=== PATIENT | female | born 1990 | race Caucasian/White ===

== ENCOUNTER → 2020-04-15 12:05 | Outpatient (BNVA) | payer SELFPAY | PROVIDERS: Family Provider Nurse Practitioner; PCP Nurse Practitioner; Visit Provider Nurse Practitioner Family | DX: N39.0 Urinary tract infection, site not specified (principal) | CPT/HCPCS: 81000 ==

== ENCOUNTER → 2020-05-03 11:12 | Outpatient (BNVA) | payer SELFPAY | PROVIDERS: Family Provider Nurse Practitioner; Visit Provider Nurse Practitioner Family | DX: N39.0 Urinary tract infection, site not specified (principal) | CPT/HCPCS: 81000; 87077; 87086; 87186 ==

== ENCOUNTER → 2020-06-04 10:22 | Outpatient (BNVA) | payer MEDICAID, SELFPAY | PROVIDERS: Family Provider Nurse Practitioner; Visit Provider Nurse Practitioner Family | DX: Z30.9 Encounter for contraceptive management, unspecified (principal); F32.9 Major depressive disorder, single episode, unspecified; F41.9 Anxiety disorder, unspecified | CPT/HCPCS: 81025 ==

== ENCOUNTER → 2020-07-09 09:15 | Outpatient (BNVA) | payer OTHER, SELFPAY | PROVIDERS: Family Provider Nurse Practitioner; PCP Nurse Practitioner Family; Visit Provider Nurse Practitioner Family | DX: Z20.828 Contact with and (suspected) exposure to other viral communicable diseases (principal); Z30.09 Encounter for other general counseling and advice on contraception | CPT/HCPCS: 87635 ==

== ENCOUNTER → 2020-09-20 09:13 | Outpatient (BNVA) | payer MEDICAID, SELFPAY | PROVIDERS: Family Provider Nurse Practitioner; PCP Nurse Practitioner Family; Visit Provider Obstetrics & Gynecology | DX: Z30.9 Encounter for contraceptive management, unspecified (principal); Z30.09 Encounter for other general counseling and advice on contraception; Z30.017 Encounter for initial prescription of implantable subdermal contraceptive | CPT/HCPCS: 81025 ==

== ENCOUNTER 2020-10-16 23:55 | Emergency (ER) | payer OTHER, SELFPAY ==
[2020-10-16 23:58] VITALS: BP 152/107; PULSE 85; RESP 16; O2SAT 100; BMI 26.2
--- NOTE | 2020-10-17 | ECG_ITS ---
[facility] Test Date: 2020-10-17 Pat Name: Violetta Kunz Department: Room: Gender: Female Bronc Buster: : 1990 Requested By: Thomas Tejeda Order Number: [id number] Armas MD: Lliian Powell M.D. Measurements Intervals [place] Rate: 72 P: 28 IA: 132 QRS: 63 QRSD: 86 T: 40 QT: 376 QTc: 413 Interpretive Statements SINUS RHYTHM No previous ECG available for comparison Electronically Signed On 10-17-2020 20:19:58 CDT by Lilian Powell M.D. [id number]
--- NOTE | 2020-10-17 00:06 | CTR_ITS ---
PROCEDURE INFORMATION: Exam: CT Head Without Contrast Exam date and time: 10/17/2020 12:09 AM Age: 30 years old Clinical indication: Dizziness; Patient HX: C/O sudden onset lightheaded w R sided numbness/weakness TECHNIQUE: Imaging protocol: Computed tomography of the head without contrast. Radiation optimization: All CT scans at this facility use at least one of these dose optimization techniques: automated exposure control; mA and/or kV adjustment per patient size (includes targeted exams where dose is matched to clinical indication); or iterative reconstruction. COMPARISON: CT head wo con* [id number] 09/05/2018 12:45 PM RADIATION DOSE METRICS: Total DLP (mGy-cm): 758.99 FINDINGS: Brain: No evidence of acute infarct. No mass or mass effect. No intra axial hemorrhage. No extra axial fluid collection or hemorrhage. Cerebral ventricles: Symmetric and without enlargement. Bones/joints: No acute fracture. Paranasal sinuses: Visualized sinuses are well aerated. Mastoid air cells: Visualized mastoid air cells are well aerated. Soft tissues: No concerning abnormalities. CT/CT head wo con* [id number] IMPRESSION: No acute intracranial abnormality. Radiation Dose CTDIVOL = (mGy): DLP = 758.99 (mGy-cm)
--- NOTE | 2020-10-17 00:09 | W.ED.DIZZY ---
HPI - Dizziness General: Chief Complaint: Dizziness Stated Complaint: Dizzy, Numbness Rt side Time Seen by Provider: 10/16/20 23:59 History of Present Illness: HPI Narrative: Patient presents with chest discomfort starting about 1 to 1-1/2 hours prior to arrival to the ER. Patient appears well. Patient appears in mild discomfort. Patient has a history of anxiety with depression and migraine headache. Patient reports pain with numbness radiating down her right side of the body. Patient states some chest tightness with this pain. MD elicited complaint: lightheadedness Associated symptoms: Reports chest pain Review of Systems General: Reports: 10 or more systems reviewed and unremarkable except in HPI and below Card: Reports: chest pain Neuro: Reports: dizziness PFS ED PFSH: Medical History (Updated 10/17/20 @ 01:11 by SRIKANTH Main) Anxiety and depression Family History Mother Hyperlipidemia Hypertension Denies family history of Colon cancer Ovarian cancer Diabetes Clotting disorder Heart disease Breast cancer Bleeding disorder Uterine cancer Stroke Social History Smoking and tobacco status: former smoker Second hand smoke exposure: No Smoking risk assessment/counseling performed?: No Alcohol intake: current Alcohol intake frequency: holidays/special occasions only Desire information about substance/drug rehabilitation?: No Counseling given: No Adopted: No Caregiver/support person: No Lives independently: Yes Household members: spouse Housing: House Marital status: Number of children: 3 service: No Current occupational status: employed Physical Exam Const: COMMON NORMALS: no acute distress, patient oriented x3 and alert GENERAL APPEARANCE: cooperative ORIENTATION/CONSCIOUSNESS: Yes oriented to person and Yes oriented to place HENMT: COMMON NORMALS: normocephalic, TM's normal bilaterally and Normal external nose present HEAD & SCALP: normal to inspection and normocephalic NOSE: Normal external nose present TYMPANIC MEMBRANE: TM's normal bilaterally MOUTH: Normal oral and palatal mucosa present THROAT: posterior oropharynx normal Eye: GENERAL EYE: appearance normal, both eyes and all related structures Neck/C-Spine: COMMON NORMALS: full ROM and no meningeal signs Lymph: LYMPHATIC: no lymphadenopathy noted Chest: COMMONS NORMALS: normal inspection of the chest Resp: COMMON NORMALS: normal respiratory effort EFFORT & INSPECTION: Yes able to speak in complete sentences Cardio: COMMON NORMALS: regular rate and regular rhythm RATE: regular rate RHYTHM: regular rhythm GI: COMMON NORMALS: non-tender : COMMON NORMALS: Yes no CVA tenderness BLADDER/KIDNEY EXAM: Yes no CVA tenderness Back/Pelvis: COMMON NORMALS: no CVA tenderness and thoracic and lumbar spine normal to inspection Extremity: COMMON NORMALS: normal to inspection Neuro: COMMON NORMALS: patient oriented x3 and moves all extremities SENSORIUM/ORIENTATION: Yes alert, Yes oriented to person and Yes oriented to place MENINGEAL SIGNS: Yes no meningeal signs CRANIAL NERVES: Yes CN normal except as noted SPEECH: speech normal GAIT: Yes Normal gait present MOTOR EXAM: 5/5 motor strength present throughout Psych: COMMON NORMALS: mental status grossly normal and cooperative Skin: COMMON NORMALS: no rashes or lesions noted GENERAL SKIN EXAM: no rashes or lesions noted Course Vital Signs: Vital signs: Vital Signs Pulse Rate 69 10/17/20 01:00 Respiratory Rate 16 10/16/20 23:58 Blood Pressure 121/81 10/17/20 01:00 Pulse Oximetry 100 10/16/20 23:58 MDM - Dizziness MDM Narrative: Medical decision making narrative: Patient comes in tonight for concerns of lightheadedness, chest discomfort, right shoulder pain. Patient also reports feeling of numbness. On exam patient has normal sensation. Respirations are even lungs are clear to auscultation. Equal strength. No sign of facial drooping. Normal speech. Vital signs were normal. Differential diagnosis includes not limited to adverse drug reaction, orthostatic hypotension, CVA, anxiety. Laboratory values were normal. Patient did have positive orthostatic blood pressures. CT of the head was negative. I reviewed the side effects for duloxetine which patient was recently started on. It noted that patient may have some increasing anxiety and some mild orthostatic hypotension. Reviewed exam with patient with recommendations for treatment and follow-up. Patient reported understanding and agreed to plan. Differential Diagnosis: Dizziness Differential Diagnosis: Likely adverse reaction to drug, orthostatic hypotension and cerebrovascular accident Lab Data: Labs: Lab Results 10/17/20 10/17/20 10/17/20 Range/Units 00:32 00:32 00:32 WBC 6.1 (4.0-10.0) 10^3/ uL RBC 4.51 (4.1-5.3) 10^6/u L Hgb 13.7 (11.5-15.3) g/dL Hct 40.3 (37.0-47.0) % MCV 89.4 (81-99) fL MCH 30.4 (28.0-34.0) pg MCHC 34.0 (30.0-36.0) g/dL RDW 12.0 L (12.1-15.1) % Plt Count 257 (130-400) 10^3/c mm MPV 9.1 (7.4-10.4) fL Neut % (Auto) 44.2 % Lymph % (Auto) 41.8 % [place] % (Auto) 7.7 % Eos % (Auto) 5.3 % Baso % (Auto) 0.8 % Neut # (Auto) 2.68 (1.8-7.7) 10^3/u L Lymph # (Auto) 2.5 (0.8-4.8) 10^3/u L [place] # (Auto) 0.5 (0.2-0.9) 10^3/u L Eos # (Auto) 0.3 (0.0-0.8) 10^3/u L Baso # (Auto) 0.1 (0.0-0.1) 10^3/u L Nucleated RBC % (a uto) 0 % Nucleated RBCs # 0.0 /100WBC Sodium 139 (136-145) mmol/L Potassium 3.9 (3.5-5.1) mmol/L Chloride 106 (98-107) mmol/L Carbon Dioxide 23 (22-29) mmol/L Anion Gap 13.9 (5-19) BUN 12 (6-20) mg/dL Creatinine 0.6 (0.5-0.9) mg/dL GFR Calculation 116.6 (90-130) mL/min Glucose 97 (65-115) mg/dL Calculated Osmolal ity 288 (285-295) mOsm/k g Calcium 9.1 (8.5-10.5) mg/dL Magnesium 1.9 (1.7-2.3) mg/dL Total Bilirubin 0.2 (0.15-1.2) mg/dL AST 20 (0-32) U/L ALT 18 (0-33) U/L Alkaline Phosphata se 58 (35-105) IU/L Troponin T Gen 5 n g/L 6 (0-10) ng/L Total Protein 7.0 (6.6-8.7) g/dL Albumin 4.7 (3.5-5.2) g/dL Globulin 2.3 (1.3-4.6) g/dL EKG Data^: EKG 1: Attestation: I personally reviewed and interpreted this EKG as follows: (1220, EKG shows normal sinus rhythm, 72 bpm regular, without any ectopy. No ST elevation is noted. No prior exam is available for evaluation comparison.) Discharge Plan Discharge Patient Disposition: Home Clinical Impression: Atypical chest pain, Anxiety about health, Orthostatic hypotension Adverse drug effect Qualifiers: Encounter type: initial encounter Qualified Code(s): T50.905A - Adverse effect of unspecified drugs, medicaments and biological substances, initial encounter Condition: Stable Prescriptions: No Action povidone-iodine [Betadine Swabsticks] 10 % swab 1 applic topical ONCE Qty: 150 RF: 0 ondansetron 4 mg tablet,disintegrating 4 mg PO Q8H PRN (Reason: nausea and vomiting) Qty: 20 RF: 0 duloxetine [Cymbalta] 60 mg capsule,delayed release(DR/EC) 60 mg PO DAILY 30 Days Qty: 30 RF: 0 buspirone 30 mg tablet 30 mg PO BID PRN (Reason: anxiety) 30 Days Qty: 60 RF: 5 doxepin 25 mg capsule 25 mg PO .hs 30 Days Qty: 30 RF: 5 Discharge Orders: Discharge ED (Routine); Ordered 10/17/20 Ordered By: Thomas Leslie Referrals: Reta Mercer FNP-C [Primary Care Provider] - Discharge Diet: Usual diet Discharge Activity: Increase activity as tolerated Patient Instructions: Chest Pain (ED), Opioid Safety Activity Restrictions/Additional Instructions: Home and rest. Drink plenty of fluids. Continue with routine medications as directed. Use acetaminophen or ibuprofen for back pain. Follow-up with primary care for further instructions. Return to the emergency department for new concerns. Coding Level of Care Code ED Neonatal Intensive Care Unit Nurse for Lori Fwd Exam Comprehensive
[2020-10-17 00:36] LABS: Basophils # 0.1 10^3/uL (0.0-0.1); Basophils % 0.8 %; Eosinophils # 0.3 10^3/uL (0.0-0.8); Eosinophils % 5.3 %; Hematocrit 40.3 % (37.0-47.0); Hemoglobin 13.7 g/dL (11.5-15.3); Lymphocytes # 2.5 10^3/uL (0.8-4.8); Lymphocytes % 41.8 %; Mean Corpuscular Hemoglobin 30.4 pg (28.0-34.0); Mean Corpuscular Volume 89.4 fL (81-99); Mean Platelet Volume 9.1 fL (7.4-10.4); Monocytes # 0.5 10^3/uL (0.2-0.9); Monocytes % 7.7 %; Neutrophils # 2.68 10^3/uL (1.8-7.7); Neutrophils % 44.2 %; Nucleated Red Blood Cells % 0 %; Platelet Count 257 10^3/cmm (130-400); Red Blood Count 4.51 10^6/uL (4.1-5.3); White Blood Count 6.1 10^3/uL (4.0-10.0)
[2020-10-17 00:53] LABS: Alanine Aminotransferase 18 U/L (0-33); Albumin Level 4.7 g/dL (3.5-5.2); Alkaline Phosphatase 58 IU/L (35-105); Anion Gap 13.9 (5-19); Aspartate Amino Transferase 20 U/L (0-32); Blood Urea Nitrogen 12 mg/dL (6-20); Calcium 9.1 mg/dL (8.5-10.5); Carbon Dioxide 23 mmol/L (22-29); Chloride 106 mmol/L (98-107); Globulin 2.3 g/dL (1.3-4.6); Glomerular Filtration Rate 116.6 mL/min (90-130); Glucose 97 mg/dL (65-115); Magnesium 1.9 mg/dL (1.7-2.3); Osmolality Calculated 288 mOsm/kg (285-295); Potassium 3.9 mmol/L (3.5-5.1); Sodium 139 mmol/L (136-145); Total Bilirubin 0.2 mg/dL (0.15-1.2)
[2020-10-17 00:55] LABS: Troponin T (5th) Once 6 ng/L (0-10)
[2020-10-17] MEDS: LORazepam 0.5 mg Tablet PO (00:57)
[2020-10-17 01:00] VITALS: BP 114/80; BP 116/83; BP 121/81; PULSE 69; PULSE 78; PULSE 93
[2020-10-17 01:15] VITALS: BP 122/83; PULSE 77; RESP 18; O2SAT 99
[2020-10-17] MEDS: sodium chloride 0.9% 500 ML 999 ML IV (01:16)
[2020-10-17 02:11] VITALS: BP 122/83; PULSE 70; RESP 17; O2SAT 99
== END 2020-10-17 02:11 | disposition home or self-care (01) ==
PROVIDERS: Emergency Provider Nurse Practitioner Family; PCP Nurse Practitioner Family
DX: R07.89 Other chest pain (principal); F41.9 Anxiety disorder, unspecified; I95.1 Orthostatic hypotension; T50.905A Adverse effect of unspecified drugs, medicaments and biological substances, initial encounter; Z87.891 Personal history of nicotine dependence
CPT/HCPCS: 70450; 80053; 83735; 84484; 85025; 93005; 96360; 99284; J7040

== ENCOUNTER → 2021-04-11 12:00 | Outpatient (BNVA) | payer MEDICAID, SELFPAY | PROVIDERS: PCP Nurse Practitioner Family; Visit Provider Nurse Practitioner Family | DX: Z20.822 Contact with and (suspected) exposure to COVID-19 (principal) | CPT/HCPCS: 87426; 87635 ==

== ENCOUNTER → 2021-04-22 10:32 | Outpatient (BNVA) | payer MEDICAID, SELFPAY | PROVIDERS: PCP Nurse Practitioner Family; Visit Provider Nurse Practitioner | DX: R05 Cough (principal); R09.81 Nasal congestion; J01.90 Acute sinusitis, unspecified; B96.89 Other specified bacterial agents as the cause of diseases classified elsewhere | CPT/HCPCS: 87400; 87880 ==

== ENCOUNTER 2022-02-11 15:01 | Outpatient (CLI) | payer BC, SELFPAY ==
[2022-02-11] VITALS (29 sets, daily range): BP systolic 105–128; BP diastolic 55–82; PULSE 92–121; RESP 16; O2SAT 85–100; BMI 26.7
[2022-02-11] MEDS: sodium chloride 0.9% 1,000 ML 999 ML IV (15:49)
[2022-02-11 16:05] LABS: Urine Appearance Clear (CLEAR); Urine Color Yellow (Yellow); pH Urine 6.5 (5-7)
[2022-02-11 16:06] LABS: Bilirubin Urine Neg (Negative); Blood Urine Neg (Negative); Glucose Urine UA Norm (Normal); Ketones Urine 1+ (Negative); Leukocyte Esterase Urine Negative (Negative); Nitrate Urine Negative (Negative); Protein Urine Neg (Negative); Urobilinogen Urine Norm (Negative)
[2022-02-11 16:07] LABS: Add Urine Culture? No; Bacteria Urine 2+ /hpf; Mucus Urine 2+ /hpf; Squamous Epithelial Cell Urine 15-25 /hpf (0-5); WBC Urine 0-4 /hpf (0-5)
[2022-02-11] MEDS: betamethasone susp 6 mg/mL 5 mL 12 MG IM (16:28)
[2022-02-11] MEDS: terbutaline 1 mg/mL INJ 0.25 MG SUBCUT (16:28)
[2022-02-11] MEDS: cefTRIAXone 1,000 MG in sodium chloride 0.9% (plus) 50 ML 100 MG IV (16:32)
[2022-02-11] MEDS: NIFEdipine 10 mg Capsule 20 MG PO (17:37)
[2022-02-11] MEDS: HYDROcodone-acetaminophen 5-325 mg Tablet 1 TAB PO (17:37)
== END 2022-02-11 20:25 | disposition home or self-care (01) ==
LOC: OPOB 15:05 → OBGYN 15:06
PROVIDERS: PCP Nurse Practitioner Family; Visit Provider Family Medicine
DX: O26.899 Other specified pregnancy related conditions, unspecified trimester (principal); Z3A.00 Weeks of gestation of pregnancy not specified; R10.9 Unspecified abdominal pain
CPT/HCPCS: 36415; 59025; 81001; 96372; 99211; J0696; J0702; J3105; J7030

== ENCOUNTER 2022-02-12 16:04 | Outpatient (CLI) | payer BC, SELFPAY ==
[2022-02-12] VITALS (7 sets, daily range): BP systolic 104–130; BP diastolic 65–81; PULSE 93–116; RESP 17; BMI 26.7
[2022-02-12] MEDS: betamethasone susp 6 mg/mL 5 mL 12 MG IM (16:31)
[2022-02-12] MEDS: NIFEdipine 10 mg Capsule 20 MG PO (16:50)
== END 2022-02-12 18:02 | disposition home or self-care (01) ==
LOC: OPOB 16:05 → OBGYN 16:05
PROVIDERS: PCP Nurse Practitioner Family; Visit Provider Family Medicine
DX: O26.899 Other specified pregnancy related conditions, unspecified trimester (principal); Z3A.00 Weeks of gestation of pregnancy not specified; R10.9 Unspecified abdominal pain
CPT/HCPCS: 59025; 96372; 99211; J0702

== ENCOUNTER 2022-02-21 01:15 | Outpatient (CLI) | payer BC, SELFPAY ==
[2022-02-21 01:15] VITALS: RESP 17; BMI 27.1
[2022-02-21 01:23] VITALS: BP 123/75; PULSE 125
[2022-02-21 01:42] VITALS: BP 118/78; PULSE 102
== END 2022-02-21 01:58 | disposition home or self-care (01) ==
LOC: OPOB 01:18 → OBGYN 01:19
PROVIDERS: PCP Nurse Practitioner Family; Visit Provider Family Medicine
DX: O36.8190 Decreased fetal movements, unspecified trimester, not applicable or unspecified (principal); O46.90 Antepartum hemorrhage, unspecified, unspecified trimester; Z3A.00 Weeks of gestation of pregnancy not specified
CPT/HCPCS: 59025; 99211

== ENCOUNTER 2022-04-02 10:11 | Outpatient (CLI) | payer BC, MEDICAID, SELFPAY ==
[2022-04-02] VITALS (11 sets, daily range): BP systolic 96–160; BP diastolic 63–125; PULSE 78–93; RESP 16; TEMP 36.6; BMI 28.7
[2022-04-02 11:33] LABS: Add Urine Microscopic? YES; Bilirubin Urine 1+ (Negative); Blood Urine Trace (Negative); Glucose Urine UA Norm (Normal); Ketones Urine Negative (Negative); Leukocyte Esterase Urine 2+ (Negative); Nitrate Urine Negative (Negative); Protein Urine Trace (Negative); RBC Urine RARE /hpf (0-2); Squamous Epithelial Cell Urine 15-25 /hpf (0-5); Urine Appearance Hazy (CLEAR); Urine Color Yellow (Yellow); Urobilinogen Urine 4 mg/dL (Negative); WBC Urine 15-25 /hpf (0-5); pH Urine 7 (5-7)
[2022-04-02 11:34] LABS: Add Urine Culture? No; Bacteria Urine 2+ /hpf
[2022-04-02 11:41] LABS: Urine Creatinine 176 mg/dL (28-217)
[2022-04-02 11:46] LABS: UPRO/UCREAT Ratio 0.24 mg/mg CR; Urine Protein Random 42 mg/dL
[2022-04-02] MEDS: HYDROcodone-acetaminophen 5-325 mg Tablet 1 TAB PO (12:23)
[2022-04-02 13:43] LABS: Amphetamines Screen Urine Negative (Negative); Barbiturates Screen Urine Negative (Negative); Benzodiazepines Screen Urine Negative (Negative); Cocaine Screen Urine Negative (Negative); Opiate Screen Urine Negative (Negative); PCP Screen Urine Negative (Negative); THC Screen Urine Negative (Negative)
== END 2022-04-02 13:35 | disposition home or self-care (01) ==
LOC: OPOB 10:18 → OBGYN 10:19
PROVIDERS: PCP Nurse Practitioner Family; Visit Provider Family Medicine
DX: O26.893 Other specified pregnancy related conditions, third trimester (principal); R51.9 Headache, unspecified; M54.9 Dorsalgia, unspecified; Z3A.37 37 weeks gestation of pregnancy
CPT/HCPCS: 59025; 80306; 81001; 82570; 84156; 99211

== ENCOUNTER 2022-04-05 05:51 | Inpatient (IN) | payer BC, MEDICAID, SELFPAY ==
[2022-04-05] VITALS (34 sets, daily range): BP systolic 104–140; BP diastolic 56–103; PULSE 71–159; RESP 16–17; TEMP 36.3–36.9; O2SAT 86–99; BMI 28.5
[2022-04-05 06:02] LABS: Basophils % 0.2 %; Eosinophils # 0.2 10^3/uL (0.0-0.8); Eosinophils % 2.1 %; Hematocrit 32.2 % (37.0-47.0); Hemoglobin 10.2 g/dL (11.5-15.3); Lymphocytes # 2.1 10^3/uL (0.8-4.8); Mean Corpuscular HGB Conc 31.7 g/dL (30.0-36.0); Mean Corpuscular Hemoglobin 26.1 pg (28.0-34.0); Mean Corpuscular Volume 82.4 fl (81-99); Mean Platelet Volume 9.3 fL (7.4-10.4); Monocytes # 0.8 10^3/uL (0.2-0.9); Monocytes % 8.6 %; Neutrophils # 5.82 10^3/uL (1.8-7.7); Neutrophils % 65.1 %; Nucleated Red Blood Cells % 0 %; Platelet Count 286 10^3/cmm (130-400); Red Blood Count 3.91 10^6/uL (4.1-5.3); Red Cell Distribution Width 13.6 % (12.1-15.1)
[2022-04-05 06:03] LABS: Nitrazine Paper, PH Positive
[2022-04-05] MEDS: lactated ringers 1,000 ML 999 ML IV (06:05)
[2022-04-05] MEDS: ondansetron 2 mg/ML SDV 2 mL 4 MG IVP (06:19)
[2022-04-05] MEDS: dextrose 5%-lactated ringers 1,000 ML 125 ML IV (07:09)
--- NOTE | 2022-04-05 07:52 | ANES.PREANE2 ---
Pre-Anesthetic Assessment Height/Weight: Height 1.6 m Pulse BP Pulse Ox O2 Del Method 85 104/58 98 04/05/22 07:33 04/05/22 07:33 04/05/22 07:00 04/05/22 07:37 epidural Familial anesthetic complications: none Social No alcohol and No tobacco Airway Mallampati: Class II Dentition: full Anesthetic Plan ASA status: 2 Anesthesia: Regional (specify below) Risk of > 500 ml blood loss (7ml/kg in children): No Medications/Allergies Home Medications Medication Instructions Recorded Confirmed Last Taken Type docusate sodium 100 mg capsule 100 mg PO DAILY 04/02/22 04/02/22 Unknown History (Colace) inulin 2 gram chewable tablet 2 g PO DAILY 04/02/22 04/02/22 Unknown History (Fiber Gummies) Allergies Allergy/AdvReac Type Severity Reaction Status Date / Time No Known Allergies Allergy Verified 02/21/22 01:38 Current Medications Generic Name Dose Route Start Last Admin Trade Name Freq PRN Reason Stop Dose Admin Dextrose/Lactated Ringer's 1,000 mls @ 125 mls/hr 04/05/22 05:45 04/05/22 07:09 Dextrose 5%-Lactated Ringers IV 125 mls/hr .Q8H TORY Administration Ropivacaine 200 mg in 100 mls @ 13 mls/hr 04/05/22 06:00 04/05/22 07:09 Naropin Premix EPIDURAL 13 mls/hr .Q7H42M TORY Administration Lactated Ringer's 1,000 mls @ 999 mls/hr 04/05/22 05:55 04/05/22 06:05 Lactated Ringers IV 999 mls/hr .Q1H1M PRN Administration See label comments Ondansetron HCl 4 mg 04/05/22 05:38 04/05/22 06:19 Ondansetron 2 Mg/Ml Sdv 2 Ml IVP 4 mg Q4H PRN Administration NAUSEA AND VOMITING PFSH Anesthesia Medical History Anxiety and depression Family History Mother Hyperlipidemia Hypertension Denies family history of Colon cancer Ovarian cancer Diabetes Clotting disorder Heart disease Breast cancer Bleeding disorder Uterine cancer Stroke Social History Smoking and tobacco status: former smoker Second hand smoke exposure: No Smoking risk assessment/counseling performed?: No Alcohol intake: current Alcohol intake frequency: holidays/special occasions only Data Anesthesia : 04/05/22 05:50 Short CBC 04/05/22 Range/Units 05:50 WBC 9.0 (4.0-10.0) 10^3/uL Hgb 10.2 L (11.5-15.3) g/dL Hct 32.2 L (37.0-47.0) % MCV 82.4 (81-99) fl Plt Count 286 (130-400) 10^3/cmm Neut % (Auto) 65.1 % Neut # (Auto) 5.82 (1.8-7.7) 10^3/uL Cardiac Studies: No Data to Display
--- NOTE | 2022-04-05 07:53 | ANES.PROC ---
Anesthesia Procedures Procedure/Date: 04/05/22 Epidural: Time Out Performed: Yes Consents Signed: Procedure Consent Consent: requested by attending/covering physician, from patient, risks and benefits reviewed and patient agrees to proceed Lumbar Level: L3-L4 Epidural position: sitting Epidural procedure: sterile prep of area, 1% lidocaine to numb the area, 18 g needle, negative for paresthesia passed, neg for paresthesia, test dose given, 1.5% xylocaine 1:200k epi (8 cc (divided dose)), 0.2% Ropivacaine bolus ml (5 ml), placed PCEA, no systemic response, sterile dressing applied, L.U.D. no apparent complications and 0.2% Ropiavacaine @ mls/hr (13) Additional Comments: TANNA at 3.5 cm, threaded to 10 cm. Test dose given twice because patient had contraction during administration
[2022-04-05] MEDS: oxytocin 30 UNIT/500 ML BAG 600 UNIT IV (08:00)
--- NOTE | 2022-04-05 08:19 | PM.OPHPUD ---
Labor & Delivery H&P Update Date of Procedure: April 05, 2022 Date H&P Performed: 04/04/22 Admission Diagnosis: 31-year-old 4 para 3-0-0-3 at 38 weeks estimated gestational age presenting with spontaneous rupture membranes and active labor Planned procedure: Spontaneous vaginal delivery Other information: The patient 38-week female who presented with spontaneous rupture of membranes. Membranes ruptured just prior to arrival to hospital. She also has a consistent contractions. Patient's is been unremarkable. Her labs were as follows. Her blood type is a positive her antibody screen is negative. Her infectious disease profile was within normal limits. Her glucose screen was passed. She was GBS negative. Her drug screen was positive for marijuana.
--- NOTE | 2022-04-05 08:24 | PM.DELIVERY ---
Delivery Note: Date of delivery: April 05, 2022 Pre-delivery diagnoses: 31-year-old 4 para 3 presenting with spontaneous rupture membranes and active labor. three 31-year-old female at 38 weeks estimated gestational age Procedure: Spontaneous vaginal delivery Delivering Physician: Kelby Lopez Estimated blood loss (mL): 100 Pre-Delivery Course: The patient presented to the hospital in active labor. She was noted to have spontaneous rupture membranes. An epidural was placed. She progressed to complete without difficulty. The baby had category 1 tracings during labor. Delivery: DELIVERY: The patient progressed to complete without difficulty. She delivered a female with a weight of 7 pounds 14 ounces with Apgars of 8, 9. The baby was delivered from the GÓMEZ position and placed on the mother's abdomen. The cord was then clamped and cut. There was no nuchal cord. There was no meconium. The placenta and 3 vessel cord were delivered intact shortly thereafter. The perineum and vaginal vault were carefully examined. No lacerations were noted. Both the mother and the baby were in stable condition. Post-Delivery Status: Good History History History 5 Term 3 0 Miscarriages/Ectopic 2 Living Children 3 A&P Assessment and plan (1) 38 weeks gestation of : I anticipate routine care. Status: Acute (2) Spontaneous vaginal delivery: Status: Acute Coding Level of Care Code Acute Shrinking Machine Operator for Chg Fwd Diagnoses 38 weeks gestation of Z3A.38 Spontaneous vaginal delivery O80
--- NOTE | 2022-04-05 08:30 | ANE.PACU2 ---
Inpatient post-anesthesia follow up: Airway intact: Yes Vital signs: Temperature Pulse Rate 99 Respiratory Rate Blood Pressure 118/63 Pulse Oximetry 98 Oxygen Delivery Me thod Room Air Oxygen Flow Rate Fraction of Inspir ed Oxygen Hydration adequate: Yes Nausea and vomiting: No Pain level: 2 Mental status: Baseline
--- NOTE | 2022-04-05 08:30 | PM.MISC ---
Miscellaneous Note Purpose of Documentation: Epidural Bolus: epidural bolused 5mls of 2% lido and 100mcg of fentanyl
[2022-04-05] MEDS: ibuprofen 800 mg tablet PO ×3 (09:40→20:16)
[2022-04-05] MEDS: prenatal vitamin Capsule 1 CAP PO (09:40)
[2022-04-05] MEDS: docusate sodium 100 mg Capsule PO ×2 (09:40→18:13)
--- NOTE | 2022-04-05 11:05 | PC.NURSE ---
discussed pt needing to get up to empty bladder. legs are getting feeling back but still somewhat numb. will reassess in 30-60 minutes as pt does not feel urge to void at this time.
--- NOTE | 2022-04-05 13:58 | PC.NURSE ---
pt up to bathroom without difficulty. void large amount. yuki care by pt. pad and gown changed. pt remains up in room
--- NOTE | 2022-04-05 15:28 | PC.NURSE ---
pt ambulated to OB-11 without difficulty. oriented to room/call light. proud parent pack and feeding log discussed.
[2022-04-05] MEDS: HYDROcodone-acetaminophen 5-325 mg Tablet PO (18:16)
[2022-04-05 20:53] LABS: Hematocrit 32.8 % (37.0-47.0); Hemoglobin 10.3 g/dL (11.5-15.3); Mean Corpuscular HGB Conc 31.4 g/dL (30.0-36.0); Mean Corpuscular Hemoglobin 26.3 pg (28.0-34.0); Mean Corpuscular Volume 83.9 fl (81-99); Mean Platelet Volume 9.7 fL (7.4-10.4); Platelet Count 303 10^3/cmm (130-400); Red Blood Count 3.91 10^6/uL (4.1-5.3); Red Cell Distribution Width 13.8 % (12.1-15.1)
[2022-04-06] MEDS: HYDROcodone-acetaminophen 5-325 mg Tablet PO ×2 (00:11→08:39)
[2022-04-06 04:49] VITALS: BP 103/60; PULSE 79; RESP 16; O2SAT 98
--- NOTE | 2022-04-06 05:56 | PM.OBGYDC ---
Discharge Providers OPERATIONS MANAGER STATION Date of Admission: 04/05/22 05:51 Date of Discharge: 04/06/22 Attending Provider at Admission: Kelby Lopez MD Attending Provider at Discharge: Kelby Lopez MD Primary Care Provider: ALBERT Davis Diagnoses at Discharge Discharge Diagnosis (1) 38 weeks gestation of : Status: Acute (2) Spontaneous vaginal delivery: Status: Acute Reason for Visit Reason for Visit: contactions possible rupture Hospital Course Hospital Course The patient presented to the hospital with spontaneous rupture of membranes. She was also in active labor and progressed to complete quickly and without difficulty. She did receive an epidural. Her delivery was unremarkable. There are no complications. She had no tears. Her course was also unremarkable. She breast-fed well. Her pain was well controlled. Her bleeding was within normal limits. There were no concerns. Information Peripartum Data: Infant Delivery Method: Vaginal Physical Exam Narrative: The patient is alert. She appears comfortable. Her heart has a regular rate and rhythm with no murmurs appreciated. Lungs are clear to auscultation bilaterally. Her fundus is firm and below the umbilicus. History History History 5 Term 3 0 Miscarriages/Ectopic 2 Living Children 3 Discharge Data Studies Completed and Pending Laboratory Results WBC 14.0 10^3/uL (4.0-10.0) H 04/05/22 20:20 RBC 3.91 10^6/uL (4.1-5.3) L 04/05/22 20:20 Hgb 10.3 g/dL (11.5-15.3) L 04/05/22 20:20 Hct 32.8 % (37.0-47.0) L 04/05/22 20:20 MCV 83.9 fl (81-99) 04/05/22 20:20 MCH 26.3 pg (28.0-34.0) L 04/05/22 20:20 MCHC 31.4 g/dL (30.0-36.0) 04/05/22 20:20 RDW 13.8 % (12.1-15.1) 04/05/22 20:20 Plt Count 303 10^3/cmm (130-400) 04/05/22 20:20 MPV 9.7 fL (7.4-10.4) 04/05/22 20:20 Neut % (Auto) 65.1 % 04/05/22 05:50 Lymph % (Auto) 23.0 % 04/05/22 05:50 [place] % (Auto) 8.6 % 04/05/22 05:50 Eos % (Auto) 2.1 % 04/05/22 05:50 Baso % (Auto) 0.2 % 04/05/22 05:50 Neut # (Auto) 5.82 10^3/uL (1.8-7.7) 04/05/22 05:50 Lymph # (Auto) 2.1 10^3/uL (0.8-4.8) 04/05/22 05:50 [place] # (Auto) 0.8 10^3/uL (0.2-0.9) 04/05/22 05:50 Eos # (Auto) 0.2 10^3/uL (0.0-0.8) 04/05/22 05:50 Baso # (Auto) 0.0 10^3/uL (0.0-0.1) 04/05/22 05:50 Nucleated RBC % (auto) 0 % 04/05/22 05:50 Nucleated RBCs # 0.0 /100WBC 04/05/22 05:50 Vitals Last Vital Signs Temp 98.4 F 04/05/22 16:05 Pulse 79 04/06/22 04:49 Resp 16 04/06/22 04:49 BP 103/60 04/06/22 04:49 Pulse Ox 98 04/06/22 04:49 O2 Del Method 04/06/22 04:49 Discharge Plan Discharge Patient Disposition: Home Condition: Stable Prescriptions: New ibuprofen 800 mg Tablet 800 mg PO TID Qty: 45 0RF Continued docusate sodium [Colace] 100 mg Capsule 100 mg PO DAILY Fiber Gummies 2 gram Tablet,Chewable 2 g PO DAILY Discharge Orders: Discharge Order (Routine); Ordered 04/06/22 Ordered By: Kelby Lopez Referrals: Kelby Lopez MD [Physician] - 6 Weeks Discharge Diet: Usual diet Discharge Activity: Limit activity as instructed Patient Instructions: Opioid Safety Discharge Attestations OPERATIONS MANAGER STATION Time Spent in Discharge Care*: less than 30 min Coding Level of Care Code Acute National Business Director for Chg Fwd Diagnoses 38 weeks gestation of Z3A.38 Spontaneous vaginal delivery O80
[2022-04-06] MEDS: prenatal vitamin Capsule 1 CAP PO (08:39)
[2022-04-06] MEDS: docusate sodium 100 mg Capsule PO (08:39)
[2022-04-06] MEDS: ibuprofen 800 mg tablet PO (08:39)
[2022-04-06] MEDS: lanolin oint 7 gm 1 APPLIC TOPICAL (08:44)
[2022-04-06 09:18] VITALS: BP 126/71; PULSE 91; RESP 14; TEMP 36.6; O2SAT 97
[2022-04-06 10:10] VITALS: BP 126/71; PULSE 91; RESP 14; TEMP 36.6; O2SAT 97
== END 2022-04-06 10:10 | disposition home or self-care (01) | DRG 806 ==
LOC: OBGYN 05:58 → OPOB 14:37
PROVIDERS: Admitting Provider Family Medicine; PCP Nurse Practitioner Family; Visit Provider Family Medicine
DX: O42.02 Full-term premature rupture of membranes, onset of labor within 24 hours of rupture (principal); O99.324 Drug use complicating childbirth; Z37.0 Single live birth; Z3A.38 38 weeks gestation of pregnancy; F12.90 Cannabis use, unspecified, uncomplicated
CPT/HCPCS: 12345; 36415; 59409; 83986; 85025; 85027; 99211; J2405; J2795; J3010

== ENCOUNTER 2023-10-25 11:35 | Outpatient (CLI) | payer BC, MEDICAID, SELFPAY ==
--- NOTE | 2023-10-25 12:00 | MR_ITS ---
WS: [id number] MRA ANGIOGRAPHY [place] HISTORY: Z82.49 - Family history of ischemic heart disease and oth... COMPARISON: None available. TECHNIQUE: 3-D MR angiography is performed of the [place]. All images are reviewed including source images. Distal vertebral and basilar arteries are intact with no significant stenosis or plaque. Posterior ce rebral arteries are normal course and caliber. Posterior communicating arteries are both patent. Intracranial portion of the internal carotid arteries are normal course and caliber. No significant a therosclerosis, stenosis or aneurysm identified. Middle and anterior cerebral arteries are both paten t with no significant disease. Anterior communicating artery is also normal. IMPRESSION: Normal MRA [place].
== END 2023-10-25 11:36 | disposition home or self-care (01) ==
LOC: RAD 11:36
PROVIDERS: PCP Family Medicine; Visit Provider Specialist
DX: Z82.49 Family history of ischemic heart disease and other diseases of the circulatory system (principal)
CPT/HCPCS: 70544

== ENCOUNTER 2024-05-30 19:31 | Emergency (ER) | payer BC, MEDICAID, SELFPAY ==
[2024-05-30 19:33] VITALS: BP 122/76; PULSE 86; RESP 16; TEMP 36.7; O2SAT 97; BMI 23.9
--- NOTE | 2024-05-30 22:57 | ED_ITS ---
Documented by User: MICHAEL Costa 05/31/24 00:33 HPI - Headache General: Chief Complaint: Headache Stated Complaint: migraine Time Seen by Provider: 05/30/24 22:49 Source: patient Mode of arrival: ambulatory Limitations: no limitations History of Present Illness: Patient is a 34-year-old female presenting to the emergency department due to a headache beginning this morning. She has a history of migraines, last received Botox injection in March and states that this is the worst headache she has had since then. She states the Botox does work at her next appointment is not until June. States that she took 3 Excedrin Migraine this morning at 9 AM but has not taken anything since. She states this feels identical to prior migraines, or pain is primarily worse on the right side of her head. She denies any neurological symptoms, blurred vision, or other concerning symptoms. She does note that she is feeling nauseous. Her pain is worse with light. MD elicited complaint: headache and migraine Onset (ago): hour(s) Onset description: suddenly Location: right Severity: severe Exacerbating factors: light Associated symptoms: Reports nausea; Deny chest pain, fever(s), lightheadedness, rash or vomiting Treatments prior to arrival: migraine medication Related Data Home Medications Medication Instructions Recorded Confirmed sumatriptan succinate 50 mg tablet mg PO 09/19/23 04/10/24 Previous Rx's Medication Instructions Recorded galcanezumab-gnlm 120 mg/mL 120 mg SUBCUT .monthly #1 mL 10/05/23 subcutaneous pen injector (Emgality Pen) galcanezumab-gnlm 120 mg/mL 240 mg (2 mL) SUBCUT ONCE #2 mL 10/05/23 subcutaneous pen injector (Emgality Pen) topiramate 50 mg tablet (Topamax) 50 mg PO DAILY #30 tabs 10/23/23 Allergies Allergy/AdvReac Type Severity Reaction Status Date / Time No Known Allergies Allergy Verified 04/10/24 09:28 Review of Systems General: Reports: 10 or more systems reviewed and unremarkable except in HPI and below Const: Denies: fever(s), chills or fatigue Eyes: Denies: change in vision ENMT: Denies: throat pain, ear or mastoid pain or nasal discharge Card: Denies: chest pain, palpitations, swelling of feet/ankles or lightheadedness Resp: Denies: dyspnea, productive cough or wheezing GI: Reports: nausea; Denies: abdominal pain, vomiting, diarrhea or constipation : Denies: flank pain, difficulty voiding, dysuria or urinary frequency Musc: Denies: neck pain, back pain or joint pain Skin/Breast: Denies: rash Neuro: Reports: headache(s); Denies: numbness in extremities or weakness in extremities PFSH ED PFSH: Medical History (Updated 05/30/24 @ 23:55 by MICHAEL Costa) Anxiety and depression Family History Mother Hyperlipidemia Hypertension Denies family history of Colon cancer Ovarian cancer Diabetes Clotting disorder Heart disease Breast cancer Bleeding disorder Uterine cancer Stroke Social History Smoking and tobacco/nicotine status: former use of tobacco/nicotine (quit 10+ years ago) Second hand smoke exposure: No Alcohol intake: current Alcohol intake frequency: holidays/special occasions only Substance/Drug Use: never Female Reproductive History: Date of last menstrual period: 05/26/24 Physical Exam Const: COMMON NORMALS: patient oriented x3 and no limitations GENERAL APPEARANCE: cooperative and well developed ORIENTATION/CONSCIOUSNESS: Yes awake, Yes oriented to person, Yes oriented to place and Yes oriented to time OTHER: Patient in dark room, appearing uncomfortable from a migraine headache HENMT: COMMON NORMALS: normocephalic, atraumatic and hearing grossly normal bilaterally HEAD & SCALP: normocephalic and atraumatic Eye: COMMON NORMALS: Equal, round and reactive pupils present, EOMs intact bilaterally and conjunctivae normal CONJUNCTIVA: Yes conjunctivae normal PUPIL: Yes Equal, round and reactive pupils present Neck/C-Spine: COMMON NORMALS: full ROM, supple and no JVD Resp: COMMON NORMALS: normal respiratory effort, No retractions, No use of accessory muscles and clear to auscultation bilaterally AUSCULTATION: clear to auscultation bilaterally Cardio: COMMON NORMALS: no JVD, regular rate, regular rhythm, No clicks present (Cardio), No murmurs present (Cardio) and No rub (Cardio) RATE: regular rate RHYTHM: regular rhythm Extremity: COMMON NORMALS: normal to inspection, full ROM and capillary refill normal Neuro: COMMON NORMALS: patient oriented x3, CN's II-XII intact bilaterally, moves all extremities, no focal motor deficits and no sensory deficits noted SENSORIUM/ORIENTATION: Yes oriented to person, Yes oriented to place and Yes oriented to time Skin: COMMON NORMALS: no rashes or lesions noted GENERAL SKIN EXAM: no rashes or lesions noted Course Vital Signs: Vital signs: Vital Signs Temperature 98.0 F 05/30/24 19:33 Pulse Rate 68 05/31/24 01:46 Respiratory Rate 20 H 05/31/24 01:00 Blood Pressure 131/71 05/31/24 01:46 Pulse Oximetry 99 05/31/24 01:46 Oxygen Delivery Me thod Room Air 05/31/24 01:00 MDM - Headache Medical Decision Making Patient presented with migraine, stating that it felt exactly like prior migraines. She sees Dr. Gill for Botox injections but states her next one is not until June. She has never had visits here for migraine she reports, after migraine cocktail she does report improvement will be discharged home with instructions to follow back up with Dr. Gill. Reasons to return discussed. No radiology studies performed this visit Discharge Plan Discharge Patient Disposition: Home Clinical Impression: Migraine Qualifiers: Migraine type: unspecified Status migrainosus presence: without status migrainosus Intractability: intractable Qualified Code(s): G43.919 - Migraine, unspecified, intractable, without status migrainosus Condition: Stable Prescriptions: No Action sumatriptan succinate 50 mg tablet PO Emgality Pen 120 mg/mL pen injector 240 mg SUBCUT ONCE Qty: 2 0RF Rx Instructions: loading dose Emgality Pen 120 mg/mL pen injector 120 mg SUBCUT .monthly Qty: 1 3RF Rx Instructions: after loading dose topiramate [Topamax] 50 mg tablet 50 mg PO DAILY Qty: 30 3RF Discharge Orders: Discharge ED (Routine); Ordered 05/31/24 Ordered By: Deven Abernathy Referrals: Kelby Lopez MD [Primary Care Provider] - Patient Instructions: Migraine Headache (ED) Activity Restrictions/Additional Instructions: Follow-up with Dr. Gill. Continue taking home medications. Plenty of fluids. Return with any new or worsening. Coding Level of Care Code ED Milling/Polishing Operator for Chg Fwd Documented by User: Tyler Pak DO 05/31/24 15:46 HPI - Headache General: Chief Complaint: Headache Stated Complaint: migraine Time Seen by Provider: 05/30/24 22:49 Related Data Home Medications Medication Instructions Recorded Confirmed sumatriptan succinate 50 mg tablet mg PO 09/19/23 04/10/24 Previous Rx's Medication Instructions Recorded galcanezumab-gnlm 120 mg/mL 120 mg SUBCUT .monthly #1 mL 10/05/23 subcutaneous pen injector (Emgality Pen) galcanezumab-gnlm 120 mg/mL 240 mg (2 mL) SUBCUT ONCE #2 mL 10/05/23 subcutaneous pen injector (Emgality Pen) topiramate 50 mg tablet (Topamax) 50 mg PO DAILY #30 tabs 10/23/23 Allergies Allergy/AdvReac Type Severity Reaction Status Date / Time No Known Allergies Allergy Verified 04/10/24 09:28 PFS ED PFSH: Medical History (Updated 05/30/24 @ 23:55 by MICHAEL Costa) Anxiety and depression Family History Mother Hyperlipidemia Hypertension Denies family history of Colon cancer Ovarian cancer Diabetes Clotting disorder Heart disease Breast cancer Bleeding disorder Uterine cancer Stroke Social History Smoking and tobacco/nicotine status: former use of tobacco/nicotine (quit 10+ years ago) Second hand smoke exposure: No Alcohol intake: current Alcohol intake frequency: holidays/special occasions only Substance/Drug Use: never Course Vital Signs: Vital signs: Vital Signs Temperature 98.0 F 05/30/24 19:33 Pulse Rate 68 05/31/24 01:46 Respiratory Rate 20 H 05/31/24 01:00 Blood Pressure 131/71 05/31/24 01:46 Pulse Oximetry 99 05/31/24 01:46 Oxygen Delivery Me thod Room Air 05/31/24 01:00 MDM - Headache Medical Decision Making Patient presented with migraine, stating that it felt exactly like prior migraines. She sees Dr. Gill for Botox injections but states her next one is not until June. She has never had visits here for migraine she reports, after migraine cocktail she does report improvement will be discharged home with instructions to follow back up with Dr. Gill. Reasons to return discussed. This patient was originally seen by Mr. Josemanuel PA-C. I agree with his history, evaluation, and treatment. Discharge Plan Discharge Patient Disposition: Home Clinical Impression: Migraine Qualifiers: Migraine type: unspecified Status migrainosus presence: without status migrainosus Intractability: intractable Qualified Code(s): G43.919 - Migraine, unspecified, intractable, without status migrainosus Condition: Stable Prescriptions: No Action sumatriptan succinate 50 mg tablet PO Emgality Pen 120 mg/mL pen injector 240 mg SUBCUT ONCE Qty: 2 0RF Rx Instructions: loading dose Emgality Pen 120 mg/mL pen injector 120 mg SUBCUT .monthly Qty: 1 3RF Rx Instructions: after loading dose topiramate [Topamax] 50 mg tablet 50 mg PO DAILY Qty: 30 3RF Discharge Orders: Discharge ED (Routine); Ordered 05/31/24 Ordered By: Deven Abernathy Referrals: Kelby Lopez MD [Primary Care Provider] - Patient Instructions: Migraine Headache (ED) Activity Restrictions/Additional Instructions: Follow-up with Dr. Gill. Continue taking home medications. Plenty of fluids. Return with any new or worsening. Coding Level of Care Code ED Milling/Polishing Operator for Lori Pritchard
[2024-05-30] MEDS: ondansetron 2 mg/ML SDV 2 mL 4 MG IVP (23:55)
[2024-05-30] MEDS: dexamethasone 10 mg/mL INJ IVP (23:55)
[2024-05-30] MEDS: sodium chloride 0.9% 1,000 ML 999 ML IV (23:56)
[2024-05-30 23:58] VITALS: BP 128/75; PULSE 63; RESP 15; O2SAT 100
[2024-05-31] VITALS: BP 126/79; PULSE 69; RESP 15; O2SAT 99
[2024-05-31] MEDS: ketorolac 60 mg/2 mL INJ 30 MG IVP (00:04)
[2024-05-31] MEDS: diphenhydrAMINE 50 mg/mL SDV 1mL IVP (00:05)
[2024-05-31 00:30] VITALS: BP 126/79; PULSE 65; RESP 15; O2SAT 99
[2024-05-31 01:00] VITALS: BP 131/71; PULSE 73; RESP 20; O2SAT 98
[2024-05-31 01:46] VITALS: BP 131/71; PULSE 68; O2SAT 99
== END 2024-05-31 01:45 | disposition home or self-care (01) ==
PROVIDERS: Emergency Provider Physician Assistant; PCP Family Medicine
DX: G43.919 Migraine, unspecified, intractable, without status migrainosus (principal); Z87.891 Personal history of nicotine dependence
CPT/HCPCS: 96374; 96375; 99284; J1100; J1200; J1885; J2405; J7030

== ENCOUNTER 2024-10-20 13:49 | Outpatient (CLI) | payer BC, MEDICAID, SELFPAY ==
--- NOTE | 2024-10-20 13:56 | XR_ITS ---
WS: [id number] Exam: XR lumbar spine min 4V [id number] Date/Time of Exam: 10/20/2024 2:05 PM Reason For Exam: M54.50 - Low back pain, unspecified Comparison 05/03/2018. No fracture or malalignment. Disc spaces are preserved. Posterior elements appear normal. XR/XR lumbar spine min 4V [id number] IMPRESSION: 1. Negative lumbar spine study.
== END 2024-10-20 13:50 | disposition home or self-care (01) ==
PROVIDERS: PCP Family Medicine; Visit Provider Anesthesiology Pain Medicine
DX: M54.50 Low back pain, unspecified (principal)
CPT/HCPCS: 72110

== ENCOUNTER 2025-01-19 10:05 | Emergency (ER) | payer BC, MEDICAID, SELFPAY ==
[2025-01-19 10:28] VITALS: BP 115/77; PULSE 67; RESP 17; TEMP 36.6; O2SAT 98; BMI 23.0
[2025-01-19 10:53] VITALS: BP 123/92; PULSE 67; RESP 16; O2SAT 100
--- NOTE | 2025-01-19 11:05 | ED_ITS ---
HPI - Headache General: Chief Complaint: Headache Stated Complaint: Migraine x 4 days Time Seen by Provider: 01/19/25 10:43 Source: patient Mode of arrival: ambulatory Limitations: no limitations History of Present Illness: Patient is a 34-year-old female presents to ED today for evaluation of a migraine headache. Patient states she has a longstanding history of migraine headaches. She sees Dr. Gill and receives Botox injections. Patient states she will have a headache approximately 22/30 days of the month. She states she normally takes Excedrin Migraine. She does not take any prophylactic medications. She states she received Botox injections by Dr. Gill on Sunday. She is here complaining of migraine headache over the past 4 days. Currently rating headache at a 6/10. She feels like her pain today is identical to previous migraines. States she was here back in May and received migraine cocktail which was helpful. MD elicited complaint: headache and migraine Pertinent past history: migraines Onset (ago): day(s) Severity: moderate Pain scale (0-10): 6 Exacerbating factors: none Relieving factors: nothing Associated symptoms: Reports no associated symptoms; Deny confusion, fever(s), malaise, nausea or vomiting Treatments prior to arrival: other (excedrin migraine ) Related Data Home Medications ?Medication ?Instructions ?Recorded ?Confirmed [id number] 250 2 tab PO Q6H PRN He adache 01/19/25 01/19/25 mg-250 mg-65 mg tablet (Excedrin Migraine) Previous Rx's ?Medication ?Instructions ?Recorded tizanidine 4 mg tablet See Rx Instructions .Route 0 12/23/24 .COMPLEX #60 tabs Allergies Allergy/AdvReac Type Severity Reaction Status Date / Time No Known Allergies Allergy Verified 01/19/25 10:32 Review of Systems Const: Denies: fever(s), chills, body aches, fatigue or malaise Eyes: Denies: change in vision, blurry vision, floaters or seeing flashes Card: Denies: palpitations GI: Denies: nausea or vomiting Musc: Denies: neck pain Neuro: Reports: headache(s); Denies: numbness in extremities, weakness in extremities, sensory changes, lack of coordination, difficulty walking, dizziness, confusion or behavioral changes [facility] ED PFSH: Medical History (Updated 01/19/25 @ 12:28 by MICHAEL Prince) Anxiety and depression Family History Mother Hyperlipidemia Hypertension Denies family history of Colon cancer Ovarian cancer Diabetes Clotting disorder Heart disease Breast cancer Bleeding disorder Uterine cancer Stroke Social History Smoking and tobacco/nicotine status: former use of tobacco/nicotine Second hand smoke exposure: No Alcohol intake: current Alcohol intake frequency: holidays/special occasions only Substance/Drug Use: never Physical Exam Const: COMMON NORMALS: no acute distress, average body habitus, patient oriented x3, no limitations, healthy appearing, alert and well nourished GENERAL APPEARANCE: cooperative ORIENTATION/CONSCIOUSNESS: Yes awake, Yes oriented to person, Yes oriented to place and Yes oriented to time HENMT: COMMON NORMALS: normocephalic and atraumatic HEAD & SCALP: normal to inspection, normocephalic and atraumatic FACE & SINUS: normal facial exam and face symmetric Neuro: JANETH COMA SCALE: document GCS findings [place] coma scale eye opening: Spontaneous [place] coma scale verbal response: Orientated Janeth coma scale motor response: Obey commands Janeth coma scale total score: 15 COMMON NORMALS: patient oriented x3, moves all extremities, no focal motor deficits, no sensory deficits noted and gait normal SENSORIUM/ORIENTATION: Yes alert, Yes oriented to person, Yes oriented to place and Yes oriented to time Course Vital Signs: Vital signs: Vital Signs Temperature 98 F 01/19/25 10:28 Pulse Rate 67 01/19/25 10:53 Respiratory Rate 16 01/19/25 10:53 Blood Pressure 123/92 01/19/25 10:53 Pulse Oximetry 100 01/19/25 10:53 Oxygen Delivery Me thod Room Air 01/19/25 10:28 MDM - Headache Medical Decision Making Patient feeling better after medications given here and would like to go home. Recommend she follow-up with her neurologist. Medical Records I reviewed the patient's medical records. No radiology studies performed this visit Discharge Plan Discharge Patient Disposition: Home Clinical Impression: Migraine Qualifiers: Migraine type: unspecified Status migrainosus presence: with status migrainosus Intractability: not intractable Qualified Code(s): G43.901 - Migraine, unspecified, not intractable, with status migrainosus Condition: Stable Prescriptions: No Action tizanidine 4 mg tablet See Rx Instructions .ROUTE .COMPLEX Qty: 60 0RF Dose Instruction: TAKE 1 TABLET BY MOUTH TWICE A DAY NEEDED FOR MUSCLE SPASTICITY Rx Instructions: TAKE 1 TABLET BY MOUTH TWICE A DAY NEEDED FOR MUSCLE SPASTICITY Excedrin Migraine 250-250-65 mg Tablet 2 tab PO Q6H PRN (Reason: Headache) Discharge Orders: Discharge ED (Routine); Ordered 01/19/25 Ordered By: Martha Harding Referrals: Kelby Lopez MD [Primary Care Provider, Family Practice] Patient Instructions: Migraine Headache (ED) Print Language: Serbian Coding Level of Care Code ED Rewriter for Lori Pritchard
[2025-01-19] MEDS: dexamethasone 10 mg/mL INJ 8 MG IM (11:26)
[2025-01-19] MEDS: ondansetron 2 mg/ML SDV 2 mL 4 MG IVP (11:26)
[2025-01-19] MEDS: ketorolac 60 mg/2 mL INJ 30 MG IVP (11:26)
[2025-01-19] MEDS: sodium chloride 0.9% 1,000 ML 999 ML IV (11:27)
[2025-01-19] MEDS: diphenhydrAMINE 50 mg/mL SDV 1mL IVP (11:27)
[2025-01-19 12:37] VITALS: BP 119/72; PULSE 63; RESP 16; O2SAT 100
== END 2025-01-19 12:38 | disposition home or self-care (01) ==
PROVIDERS: Emergency Provider Physician Assistant; PCP Family Medicine
DX: G43.901 Migraine, unspecified, not intractable, with status migrainosus (principal); Z87.891 Personal history of nicotine dependence
CPT/HCPCS: 96374; 96375; 99285; J1100; J1200; J1885; J2405; J7030

== ENCOUNTER 2025-05-09 20:26 | Emergency (ER) | payer BC, MEDICAID, SELFPAY ==
[2025-05-09 20:28] VITALS: BP 126/60; PULSE 86; RESP 17; TEMP 36.8; O2SAT 98; BMI 23.0
--- OUTSIDE RECORDS SUMMARY | 2025-05-09 20:32 | XMS_ITS | Clinical Summary ---
Author Organization [facility] Administrative Offices Address [address] [place] [id number] Care Team Providers Care Pie Bottomer Name Role Phone Unavailable Primary Care Provider Unavailabl e Allergies No known active allergies Medications aspirin-acetami nophen-caffeine (Excedrin Migraine) 250-250-65 mg Tablet Take 2 Tablets by mouth every 6 hours as needed for Headaches. 01/19/2025 Active escitalopram oxalate (LEXAPRO) 10 mg tablet Take 20 mg by mouth daily. Active propranoloL (INDERAL) 40 mg tablet Take 40 mg by mouth 2 times daily. Active traMADol (ULTRAM) 50 mg tablet Take 50 mg by mouth every 6 hours as needed for Pain. 01/23/2025 Active Active Problems Problem Noted Date Diagnosed Date Endometrial polyp 04/13/2025 Sterilization consult 04/13/2025 Postcoital bleeding 04/13/2025 Encounters Date Type Department Care Team Description 04/13/2025 11:00 AM CDT Office Visit [facility] [place] [address] [place] [phone] Beti Bynum MD Endometrial polyp (Primary Dx); Screening for cervical cancer; Screening for human papillomavirus (HPV); Sterilization consult; Postcoital bleeding 03/24/2025 Telephone [facility] [place] [address] [place] [phone] Beti Bynum MD Referral (From Dr Kelby Lopez for endometrial polyp) 03/17/2025 External Device Data [facility] ABSTRACTION Provider, Abstract 03/17/2025 External Device Data [facility] ABSTRACTION Provider, Abstract 03/03/2025 External Device Data [facility] ABSTRACTION Provider, Abstract 02/11/2025 External Device Data [facility] ABSTRACTION Provider, Abstract 02/10/2025 External Device Data [facility] ABSTRACTION Provider, Abstract from Last 3 Months Family History Medical History Relation Name Comments Hypertension Mother Ovarian Cancer Mother Relation Name Status Comments Mother Social History Tobacco Use Types Packs/Day Years Used Date Smoking Tobacco: Former Cigarettes Passive Smoke Exposure: Past Smokeless Tobacco: Never Tobacco Cessation:Counseling Given: Yes Alcohol Use Standard Drinks/Week Comments Yes 0 (1 standard drink = 0.6 oz pur e alcohol) ocassionally Feeling Safe Answer Date Recorded Do you worry about feeling s afe and happy with the people in your life? No 09/02/2024 Food Insecurity Answer Date Recorded Do you find you are eating l ess than you should because you can t pay for food? No 09/02/2024 Transportation Needs Answer Date Record ed Have you gone without health care because you didn t have a way to get there? Or worry about transportation for future doctor visits, poultry picker medication, etc.? No 2024 Housing Stability Answer Date Recorded Do you worry you won t have a steady place to sleep or struggle to pay rent or mortgage? No 09/02/2024 Utility Needs Answer Date Recorded Do you have difficulty payin g for utility costs (electric, water or gas bills)? No 09/02/2024 Medication Needs Answer Date Recorded Have you skipped taking medi cation due to cost or worry you can t afford new medications? No 09/02/2024 Comments No Sex and Gender Information Value Date Recorded Sex Assigned at Not on file Legal Sex Female 1:41 PM CDT Gender Identity Not on file Sexual Orientation Not on file Last Filed Vital Signs Vital Sign Reading Time Taken Comments Blood Pressure 104/68 04/13/2025 11:11 AM CDT Pulse - - Temperature - - Respiratory Rate - - Oxygen Saturation - - Inhaled Oxygen Concentration - - Weight 57.2 kg (126 lb) 04/13/2025 11:11 AM CDT Height 160 cm (5' 3 ) 04/13/2025 11:11 AM CDT Body Mass Index 22.32 04/13/2025 11:11 AM CDT Plan of Treatment Upcoming Encounters Date Type Department Care Team (Late st Contact Info) Description 06/02/2025 11:45 AM CLINICAL EVALUATOR Office Visit [facility] [place] [address] [phone] Beti Bynum MD [address] [place] [phone] Health Maintenance Due Date Last Done Comments HEPATITIS B VACCINES (1 of 3 - 19+ 3-dose series) 03/30 Preventative Visit-Managed Medicaid 2008 HPV/Cotest (21-29) 2010 HPV VACCINES (1 - 3-dose SCDM series) 2016 CERVICAL CANCER SCREENING 2019 HPV/Cotest (30-65) 2019 PAP SMEAR 2019 INFLUENZA VACCINE (#1) 2025 DTAP/TDAP/TD VACCINES (2 - Td or Tdap) 02/23/[address] [place] [address] MEDICAID
--- OUTSIDE RECORDS SUMMARY | 2025-05-09 20:32 | XMS_ITS | Data Portability ---
Author Organization MARIE Green [facility], LMeghanLMeghanCMeghan, [facility] Address [address] [place] [id number] Care Team Providers Care Telecommunications Manager Name Role Phone SETFANY HURTADO Primary Care Provider [phone] Assessment Encounter Date Assessment Date Assessment LastModified by Organization Details LastModified Time 04/30/2025 04/30/2025 - 35-year-old female with a history of mixed anxiety and depressive disorder presenting with increased dizziness and desire to adjust medication dosage, in the context of an upcoming surgical procedure. - Mixed anxiety and depressive disorder continues to be symptomatic. - Lesion of endometrium preparation for scheduled surgical intervention. [email or web address] Not available 04/30/2025 13:07:16 Plan of Treatment Reminders Order Date Submit Date Provider Last Modified By Organization Details Last Modified Time Details Appointments OFFICE VISIT 20 2024 03:20P Albin Hurtado MD Not available Not available Not available Lab CT + NG + TV, DNA, urine/ swab 2024 025 [facility] ([facility]), [address] [place] [address], [address], 01/29/2025 17:32:47 pap, IG + reflex HPV mRNA E6/E7 2024 025 ARTUR [facility], [address] [place] [address], [address] [facility] [place], [address], 02/03/2025 17:40:42 CBC 2024 025 [facility], [address], [address], [place], [address], 01/29/2025 16:05:17 CMP, serum or plasma 2024 025 [facility], [address], [address], [place], [address], 01/29/2025 16:13:02 thyrot ropin, QN, serum or plasma 2024 025 [facility], [address], [address], [place], [address], 01/29/2025 16:16:23 urinal ysis, comple te 2024 025 [facility], [address], [address], [place], [address], 01/29/2025 16:13:05 Referral None record ed. Procedures None record ed. Surgeries None record ed. Imaging US, pelvis , comple te - [id number] & [id number] transv aginal 2024 025 [facility], [address] [facility], [place], [address], 02/25/2025 09:27:06 Medication Orders Lexapr o 20 mg tablet 2024 025 [id number], [address], [place], [address], 04/30/2025 13:06:41 ketoro lac 60 mg/2 mL intram uscula r soluti on 2024 025 [email or web address] Not available 01/29/2025 14:31:19 dexame thason e sodium phosph ate 4 mg/mL inject ion soluti on 2024 025 [email or web address] Not available 01/29/2025 14:30:19 cefdin ir 300 mg capsul e 2024 025 [id number], [address], [address], [place], [address], 01/29/2025 14:30:08 ketoro lac 60 mg/2 mL intram uscula r soluti on 2024 025 [email or web address] Not available 01/29/2025 14:31:19 Patient TargetsNo targets recorded. Patient Instructions Encounter Date Encounter Id Patient Instructions Last Modified By Organization Details Last Modified Time 04/30/2025 [id number] - Increase Lexapro dose to 20mg as directed. - Attend follow-up appointment in two months for medication review. - Prepare and attend surgery on 05/15/2025 for lesion management. - Contact the office if experiencing any adverse symptoms or concerns related to medication. - Arrange for post-operative care with assistance from a support person after surgery. - Continue monitoring for any symptoms of anxiety or dizziness and report as necessary. [email or web address] Not available 04/30/2025 13:07:18 During the visit , we discussed the patient s concerns about her increasing dizziness and desire to adjust her medication. The decision was made to increase her Lexapro to 20mg and schedule a follow-up appointment to assess her response and tolerance. [email or web address] Not available 04/30/2025 13:31:09 Reason for Referral None Reported. Results Created Date Observation Date Name Description Value Unit Range Abnormal Flag Note LastModifiedBy Organization Detail LastModifiedTime 01/30/2001/29/2025 CBC WBC 7.1 x10 4.0-10 .5 Not Available [facility] [address], [place], [address], 01/29/2025 16:05:17 01/30/20 25 01/29/2025 CBC RBC 4.91 x10 3.50-5 .50 Not Available [facility] [address], [place], [address], 01/29/2025 16:05:17 01/30/2001/29/2025 CBC HGB 14.1 g/dL 12.0-1 6.0 Not Available [facility] [address], [place], [address], 01/29/2025 16:05:17 01/30/2001/29/2025 CBC HCT 43.0 % 37.0-4 7.0 Not Available [facility] [address], [place], [address], 01/29/2025 16:05:17 01/30/2001/29/2025 CBC MCV 87.6 fL 80.0-9 9.9 Not Available [facility] [address], [place], [address], 01/29/2025 16:05:17 01/30/2001/29/2025 CBC MCH 28.7 pg 27.0-3 2.0 Not Available [facility] [address] [facility] [address], [place], [address], 01/29/2025 16:05:17 01/30/2001/29/2025 CBC MCHC 32.7 g/dL 32.0-3 6.0 Not Available [facility] [address] [facility] [address] [facility] 1, [place], [address], 01/29/2025 16:05:17 01/30/2001/29/2025 CBC RDW 14.1 % 11.5-1 4.5 Not Available [facility] [address] [facility] 1, [place], [address], 01/29/2025 16:05:17 01/30/2001/29/2025 CBC plt 279.8 x10 140.0- 451.0 Not Available [facility] [address] [facility] 1, [place], [address], 01/29/2025 16:05:17 01/30/20 25 01/29/2025 CBC lymphocytes % 27.8 % 20.0-5 0.0 Not Available [facility] [address] [facility] 1, [place], [address], 01/29/2025 16:05:17 01/30/20 25 01/29/2025 CBC granulcytes % 60.8 % 30.0-7 0.0 Not Available [facility] [address] [facility] [address] [facility] 1, [place], [address], 01/29/2025 16:05:17 01/30/20 25 01/29/2025 CBC monocytes % 7.1 % 2.0-16 .0 Not Available [facility] [address] [facility], [place], [address], 01/29/2025 16:05:17 01/30/20 25 01/29/2025 CBC granulcytes# 4.3 x10 Not Marcy ilable [facility] [address] [facility], [place], [address], 01/29/2025 16:05:17 01/30/20 25 01/29/2025 CBC lymphocytes # 2.0 x10 Not Available [facility] [address] [facility], [place], [address], 01/29/2025 16:05:17 01/30/2001/29/2025 CBC monocytes # 0.5 x10 Not Avai lable [facility] [address] [facility], [place], [address], 01/29/2025 16:05:17 01/30/20 25 01/29/2025 CMP (FEMA LE) glucose 92.0 mg/dL 60.0-9 9.0 Not Available [facility] [address] [facility], [place], [address], 01/29/2025 16:13:02 01/30/20 25 01/29/2025 CMP (FEMA LE) BUN (blood urea nitrogen) 14.0 mg/dL 10.0-2 6.0 Not Available [facility] [address] [facility] 1, [place], [address], 01/29/2025 16:13:02 01/30/20 25 01/29/2025 CMP (FEMA LE) creatinine (serum) 0.6 mg/dL 0.4-1. 5 Not Available [facility] [address] [facility] [address] [facility] 1, [place], [address], 01/29/2025 16:13:02 01/30/20 25 01/29/2025 CMP (FEMA LE) BUN/creatini ne ratio 23.33 ratio Not Available [facility] [address] [facility], [place], [address], 01/29/2025 16:13:02 01/30/20 25 01/29/2025 CMP (FEMA LE) eGFR calculated 120.9 Not Available [facility] [address] [facility] [address] [facility] 1, [place], [address], 01/29/2025 16:13:02 01/30/20 25 01/29/2025 CMP (FEMA LE) total protein 7.4 g/dL 6.0-8. 5 Not Available [facility] [address] [facility] [address] [facility] 1, [place], [address], 01/29/2025 16:13:02 01/30/20 25 01/29/2025 CMP (FEMA LE) total bilirubin 0.9 mg/dL 0.2-1. 3 Not Available [facility] [address] [facility] [address] [facility] 1, [place], [address], 01/29/2025 16:13:02 01/30/20 25 01/29/2025 CMP (FEMA LE) albumin 4.5 g/dL 3.5-5. 5 Not Available [facility] [address] [facility] [address], [place], [address], 01/29/2025 16:13:02 01/30/20 25 01/29/2025 CMP (FEMA LE) globulin 2.9 calc Not Available [facility] [address] [facility] 1, [place], [address], 01/29/2025 16:13:02 01/30/20 25 01/29/2025 CMP (FEMA LE) AST (SGOT) 30.0 U/L 0.0-46 .0 Not Available [facility] [address] [facility] 1, [place], [address], 01/29/2025 16:13:02 01/30/20 25 01/29/2025 CMP (FEMA LE) altv (SGPT) 35.0 U/L 13.0-6 9.0 normal Not Available [facility] [address] [facility] 1, [place], [address], 01/29/2025 16:13:02 01/30/20 25 01/29/2025 CMP (FEMA LE) A/G ratio 1.6 ratio Not Available [facility] [address] [facility] 1, [place], [address], 01/29/2025 16:13:02 01/30/20 25 01/29/2025 CMP (FEMA LE) ALP phos 56.0 U/L 30.0-1 40.0 normal Not Available [facility] [address] [facility] 1, [place], [address], 01/29/2025 16:13:02 01/30/20 25 01/29/2025 CMP (FEMA LE) calcium 9.1 mg/dL 8.4-10 .5 Not Available [facility] [address] [facility], [place], [address], 01/29/2025 16:13:02 01/30/20 25 01/29/2025 CMP (FEMA LE) sodium 138.0 mmol/ L 136.0- 145.0 Not Available [facility] [address] [facility] [address], [place], [address], 01/29/2025 16:13:02 01/30/20 25 01/29/2025 CMP (FEMA LE) potassium 3.8 mmol/ L 3.5-5. 1 Not Available [facility] [address] [facility] [address], [place], [address], 01/29/2025 16:13:02 01/30/20 25 01/29/2025 CMP (FEMA LE) chloride 103.0 mmol/ L 98.0-1 10.0 normal Not Available [facility] [address] [facility] [address], [place], [address], 01/29/2025 16:13:02 01/30/20 25 01/29/2025 CMP (FEMA LE) C02 28.0 mmol/ L 22.0-3 1.0 Not Available [facility] [address] [facility] [address], [place], [address], 01/29/2025 16:13:02 01/30/2001/29/2025 CMP (FEMA LE) anion gap 7.0 calc Not Available [facility] [address] [facility] [address], [place], [address], 01/29/2025 16:13:02 01/30/20 25 01/29/2025 CMP (FEMA LE) osmolality 285.3 calc Not Available [facility] [address] [facility] 1, [place], [address], 01/29/2025 16:13:02 01/30/20 25 01/29/2025 URINA LYSIS WITH MICRO color YELLOW Not Available [facility] [address], [place], [address], 01/29/2025 16:13:05 01/30/20 25 01/29/2025 URINA LYSIS WITH MICRO clarity CLEAR Not Available [facility] [address], [place], [address], 01/29/2025 16:13:05 01/30/20 25 01/29/2025 URINA LYSIS WITH MICRO glu NEGATI VE Not Available [facility] [address], [place], [address], 01/29/2025 16:13:05 01/30/20 25 01/29/2025 URINA LYSIS WITH MICRO bili NEGATI VE Not Available [facility] [address], [place], [address], 01/29/2025 16:13:05 01/30/20 25 01/29/2025 URINA LYSIS WITH MICRO ket NEGATI VE Not Available [facility] [address], [place], [address], 01/29/2025 16:13:05 01/30/20 25 01/29/2025 URINA LYSIS WITH MICRO S.g 1.025 1.005- 1.025 Not Available [facility] [address], [place], [address], 01/29/2025 16:13:05 01/30/20 25 01/29/2025 URINA LYSIS WITH MICRO pH 6.5 5.0-7. 0 Not Available [facility] [address], [place], [address], 01/29/2025 16:13:05 01/30/20 25 01/29/2025 URINA LYSIS WITH MICRO pro NEGATI VE Not Available [facility] [address], [place], [address], 01/29/2025 16:13:05 01/30/20 25 01/29/2025 URINA LYSIS WITH MICRO uro 0.2 E.U./D L Not Available [facility] [address], [place], [address], 01/29/2025 16:13:01/30/20 25 01/29/2025 URINA LYSIS WITH MICRO nit NEGATI VE Not Available [facility] [address], [place], [address], 01/29/2025 16:13:01/30/20 25 01/29/2025 URINA LYSIS WITH MICRO blo NEGATI VE Not Available [facility] [address], [place], [address], 01/29/2025 16:13:01/30/20 25 01/29/2025 URINA LYSIS WITH MICRO kayy NEGATI VE Not Available [facility] [address], [place], [address], 01/29/2025 16:13:01/30/20 25 01/29/2025 URINA LYSIS WITH MICRO WBC 3-4 abnormal Not Available [facility] [address], [place], [address], 01/29/2025 16:13:01/30/20 25 01/29/2025 URINA LYSIS WITH MICRO RBC 1-2 abnormal Not Available [facility] [address], [place], [address], 01/29/2025 16:13:05 01/30/20 25 01/29/2025 URINA LYSIS WITH MICRO epi cells 4-6 abnormal Not Available [facility] [address] [facility] 1, [place], [address], 01/29/2025 16:13:05 01/30/20 25 01/29/2025 URINA LYSIS WITH MICRO bacteria TRACE OF MIXED GIOVANNI abnormal Not Available [facility] [address] [facility] [address], [place], [address], 01/29/2025 16:13:05 01/30/20 25 01/29/2025 URINA LYSIS WITH MICRO other NEG Not Available [facility] [address] [facility] [address], [place], [address], 01/29/2025 16:13:05 01/30/20 25 01/29/2025 TSH TSH 0.50 uIU/m L 0.49-3 .82 Not Available [facility] [address] [facility] [address], [place], [address], 01/29/2025 16:16:23 01/30/20 25 02/03/2025 THINP REP TIS PAP (REFL ) HPV MRNA E6/E7 clinical information: normal Stefanie l exam Not Available [facility] [address] [place], [address], 02/03/2025 17:40:42 01/30/20 25 02/03/2025 THINP REP TIS PAP (REFL ) HPV MRNA E6/E7 LMP: normal NONE GIVEN Not Available [facility] [address] [place], [address], 02/03/2025 17:40:42 01/30/20 25 02/03/2025 THINP REP TIS PAP (REFL ) HPV MRNA E6/E7 prev. Pap: normal NONE GIVEN Not Available [facility] [address] [address] [place], [address], 02/03/2025 17:40:42 01/30/20 25 02/03/2025 THINP REP TIS PAP (REFL ) HPV MRNA E6/E7 prev. BX: normal NONE GIVEN Not Available [address] [address] [place], [address], 02/03/2025 17:40:42 01/30/20 25 02/03/2025 THINP REP TIS PAP (REFL ) HPV MRNA E6/E7 source: normal Cervi x, Endoc ervix Not Available [address] [address] [place], [address], 02/03/2025 17:40:42 01/30/20 25 02/03/2025 THINP REP TIS PAP (REFL ) HPV MRNA E6/E7 statement of adequacy: Speci men proce ssed and exami taylor, but unsat isfac tory for evalu ation due to an insuf ficie nt numbe r of squam ous cells . Age and/o r menst rual statu s not provi ded Not Available [address] [address] [place], [address], 02/03/2025 17:40:42 01/30/20 25 02/03/2025 THINP REP TIS PAP (REFL ) HPV MRNA E6/E7 interpretati on/result: Cytol ogy Resul ts: Unabl e to provi de inter preta tion due to unsat isfac tory speci men adequ acy. Not Available [address] [address] [place], [address], 02/03/2025 17:40:42 01/30/20 25 02/03/2025 THINP REP TIS PAP (REFL ) HPV MRNA E6/E7 comment: normal This case could not be evalu ated with compu ter billy carol techn ology . The slide was eknan sosa scree taylor accor ding to routi ne proce dures . Sugge st clini jossue corre latio n and follo w-up as clini vickie appro priat e Micro scopi c featu res prese nt sugge stive of an inter ferin g subst ance, inclu ding cellu lar debri s, mucus , or possi ble lubri cant (gisel ent or provi jamila use). Use of lubri cant is not recom elsy dennison Not Available [address] [address] [place], [address], 02/03/2025 17:40:42 01/30/20 25 02/03/2025 THINP REP TIS PAP (REFL ) HPV MRNA E6/E7 cytotechnolo gist: normal AAM, CT( CP) CT Scree maxine Locat ion: [facility], [address] [facility] [place] [address] CLIA: [id number] Slide prepa ratio n perfo rmed at: [facility], [address] [facility] [place] [address] CLIA: [id number] Not Available [facility] [address] [address] [place], [address], 02/03/2025 17:40:42 01/30/20 25 02/03/2025 THINP REP TIS PAP (REFL ) HPV MRNA E6/E7 review cytotechnolo gist: normal AVN, CT( CP CT Scree maxine Locat ion: [facility], [address] [facility] [place] [address] CLIA: [id number] Slide prepa ratio n perfo rmed at: [facility], [address] [facility] [place] [address] CLIA: [id number] Not Available [address] [address] [place], [address], 02/03/2025 17:40:42 01/30/20 25 02/03/2025 THINP REP TIS PAP (REFL ) HPV MRNA E6/E7 comment EXPLA ELYSSA Felder NOTE: The Pap is a scree maxine test for cervi jossue cance r. It is not a diagn ostic test and is subje ct to false negat calista and false posit calista resul ts. It is most relia ble when a satis facto ry sampl e, regul jill obtai taylor, is submi tted with relev ant clini jossue findi ngs and histo ry, and when the Pap resul t is evalu ated along with histo sohan and curre nt clini jossue infor matio n. Not Available [facility] [address], [place], [address], 02/03/2025 17:40:42 01/30/20 25 01/29/2025 CT + NG + TV, DNA, urine /swab Chlamydia negati ve Not Available [facility] ([facility]) [address] [place], [address], 01/29/2025 15:26:59 01/30/20 25 01/29/2025 CT + NG + TV, DNA, urine /swab Gonorrhea negati ve Not Available [facility] ([facility]) [address] [place], [address], 01/29/2025 15:26:59 01/30/20 25 01/29/2025 CT + NG + TV, DNA, urine /swab Trichomonas negati ve Not Available [facility] ([facility]) [address] [place], [address], 01/29/2025 15:26:59 02/26/20 25 02/24/2025 US, pelvi s, compl ete No observ ation record ed. [address] [place], [address], 03/19/2025 16:31:12 Result Notes None recorded. Problems Name Problem SNOMED Code Status Onset Date Resolution Date Notes Provider Name and Address Organization Details Recorded Time Chronic headache disorder 307269715 Active 2022 MARIE Wolfe [facility] Zoe Knight 19:00:18 Depressiv e disorder 94766449 Active 2022 [facility] Wol[facility] 19:00:20 Episodic cluster headache 126693734 Active 2022 PAPA malhotra [facility] 19:00:22 Low back pain 922041679 Active 2023 PAPA malhotra, [facility] 19:00:25 Pain of left hip joint 708596003546 100 Active 2023 PAPA malhotra, [facility] 19:00:31 Neuropath y 131219089 Active 2024 PAPA malhotra [facility] 19:00:27 Cervical lymphaden opathy 984346021 Completed 202401/29/2025 KULWANT Flores [facility] 14:32:54 Acute headache 037167168 Active 2024 KULWANT Flores [facility] 14:32:49 Lesion of endometri 996279148645 01 Active 2024 PAPA malhotra [facility] 16:28:46 Mixed anxiety and depressiv e disorder 170256933 Active 2024 PAPA malhotra [facility] 18:46:22 Problem Notes None recorded. Procedures Surgical History Date Name Laterality Status Provider Name and Address Organization Details Recorded Time 01/23/2024 Joint Inj Kenalog- Shoulder, Hip, Knee completed Stefany Hurtado MD [address] [place] [address], [id number], [facility] 01/23/2024 12:15:16 Imaging Results None recorded. Procedure Notes None recorded. Medical Equipment None Reported. Allergies No known drug allergies Medications Name Sig Start Date Stop Date Status Note LastModified by Organization Details LastModified Time nifedipin e ER 30 mg tablet,ex tended release 24 hr TAKE 1 TABLET BY MOUTH ONCE DAILY 10/17 completed Not Available Not Available Not Available cyclobenz aprine 10 mg tablet TAKE 1 TABLET EVERY DAY BY MOUTH NEEDED. 08/05 completed Not Available Not Available Not Available tizanidin e 4 mg tablet TAKE 1 TABLET BY MOUTH TWICE A DAY NEEDED FOR MUSCLE SPASTICI TY 04/30 completed Pt states it made her feel weird the next day Not Available Not Available Not Available hydrocodo ne 5 mg-acetam inophen 325 mg tablet PRN 06/19 completed 0; Recorded 08/28/19 12:16PM by Papa Balderas RN, Office Visit; Not Available Not Available Not Available meloxicam 15 mg tablet TAKE 1 TABLET EVERY DAY BY ORAL ROUTE NEEDED. 01/28 completed Not Available Not Available Not Available prednison e 20 mg tablet TAKE 2 TABLETS BY MOUTH EVERY DAY FOR 6 DAYS 05/01 completed Not Available Not Available Not Available sumatript an 50 mg tablet TAKE 1 TABLET EVERY DAY BY MOUTH NEEDED. 01/22 completed Not Available Not Available Not Available tramadol 50 mg tablet TAKE 1 TABLET BY MOUTH ONCE DAILY NEEDED FOR PAIN/IZABEL SHABANA active Not Available Not Available No t Available ketorolac 30 mg/mL (1 mL) injection solution Inject 1 mL by intramus cular route. 05/01 completed Not Available Not Available Not Available meloxicam 7.5 mg tablet TAKE 1 TABLET BY MOUTH EVERY DAY FOR 10 DAYS 06/19 completed Not Available Not Available Not Available betametha sone acetate and sodium phos 6 mg/mL suspensio n for injection Take 1 mL by injectio n route. 01/28 completed Not Available Not Available Not Available propranol ol 40 mg tablet TAKE 1 TABLET BY MOUTH TWICE A DAY active Not Available Not Available No t Available gabapenti n 300 mg capsule Take 1 capsule 3 times a day by oral route as needed. 11/20 completed Not Available Not Available Not Available dexametha sone sodium phosphate 4 mg/mL injection solution Inject 1 mL every day by intramus cular route for 1 day. 01/29 completed Not Available Not Available Not Available Ativan 0.5 mg tablet PRN 06/19 completed 0; Recorded 08/28/19 23 12:15PM by Papa Balderas, RN, Office Visit; Not Available Not Available Not Available ketorolac 60 mg/2 mL intramusc ular solution Inject 60 mg every day by intramus cular route for 1 day. 01/29 completed Not Available Not Available Not Available propranol ol 20 mg tablet TAKE 1 TABLET BY MOUTH TWICE A DAY NEEDED 01/22 completed Not Available Not Available Not Available cefdinir 300 mg capsule TAKE 1 CAPSULE BY MOUTH EVERY 12 HOURS 01/29 completed Not Available Not Available Not Available Xanax 1 mg tablet prn 06/19 completed 0; Recorded 08/28/19 23 12:15PM by Papa Balderas, RN, Office Visit; Not Available Not Available Not Available buspirone 15 mg tablet Take 1 tablet twice a day by oral route for 30 days. 02/07 completed Not Available Not Available Not Available escitalop jaime 10 mg tablet TAKE 1 TABLET BY MOUTH EVERY DAY FOR ANXIETY AND DEPRESSI ON active Not Available Not Available No t Available Lexapro 20 mg tablet Take 1 tablet every day by oral route. 2024 active Not Available Not Available Not Avai lable topiramat e 50 mg tablet TAKE 1 TABLET BY MOUTH ONCE DAILY 01/22 completed Not Available Not Available Not Available duloxetin e 30 mg capsule,d elayed release TAKE 1 CAPSULE BY MOUTH EVERY DAY 10/17 completed Not Available Not Available Not Available duloxetin e 60 mg capsule,d elayed release TAKE 1 CAPSULE BY MOUTH EVERY DAY 02/07 completed Not Available Not Available Not Available tizanidin e 4 mg capsule Take 1 capsule every 6 hours by oral route as needed. 05/01 completed Not Available Not Available Not Available Excedrin Migraine 06/19 completed 0; Recorded 08/28/19 12:12PM by Papa Balderas RN, Office Visit; Not Available Not Available Not Available fiber 08/06 completed 0; Recorded 08/28/19 12:12PM by Papa Balderas RN, Office Visit; Not Available Not Available Not Available Cymbalta QD 08/06 completed Recorded 08/28/19 12:44PM by Stefany Hurtado MD, Office Visit; Refill Quantity : 30; Capsule; Not Available Not Available Not Available Emgality Pen 120 mg/mL subcutane ous pen injector INJECT ONE PEN UNDER THE SKIN ONCE MONTHLY AFTER LOADING DOSE 05/01 completed Not Available Not Available Not Available Nurtec ODT 75 mg disintegr ating tablet TAKE 1 TABLET SOON THE HEADACHE STARTS 01/29 completed Not Available Not Available Not Available Vitals Date Recorded Body height Body mass index (BMI) Body weight Oxygen saturation Oxygen saturation in Arterial blood by Pulse oximetry Heart rate Body temperature Systolic And Diastolic Provider Name and Address Organization Details Last Updated DateTime 5 160.02 cm 22.5 kg/m2 91563.2 3 g 97 % 97 % 85 /min 98.3 [degF] 115/72 mm[Hg] [facility] 5 10:54:10 Date Recorded Body height Body mass index (BMI) Body weight Body temperature Systolic And Diastolic Provider Name and Address Organization Details Last Updated DateTime 11/21/2024 160.02 cm 22.5 kg/m2 98838.2 3 g 98.9 [degF] 115/58 mm[Hg] [facility] 5 14:53:33 Date Recorded Body height Body mass index (BMI) Body weight Oxygen saturation Oxygen saturation in Arterial blood by Pulse oximetry Heart rate Respiratory rate Body temperature Systolic And Diastolic Provider Name and Address Organization Details Last Updated DateTime 5 160.02 cm 22.9 kg/m2 25859.5 2 g 98 % 98 % 100 /min 18 /min 98.4 [degF] 118/62 mm[Hg] KULWANT HARRIS [facility] 5 14:47:16 Date Recorded Body height Body mass index (BMI) Body weight Oxygen saturation Oxygen saturation in Arterial blood by Pulse oximetry Heart rate Respiratory rate Body temperature Systolic And Diastolic Provider Name and Address Organization Details Last Updated DateTime 5 160.02 cm 23.2 kg/m2 59036 g 99 % 99 % 77 /min 18 /min 98.2 [degF] 122/74 mm[Hg] KULWANT HARRIS [facility] 5 12:50:23 Social History Question Answer Notes LastModified by Sensor[employer] ion Details LastModified Time Tobacco Smoking Status Never Smoker PAPAKEVIN VIRAMONTESMela malhotra [facility] 02/07/2023 11:56:52 What Was The Date Of Your Most Recent Tobacco Screening? 01/29/2024 Information not available 01/29/2024 Sex: Unknown Functional Status Question Answer Note LastModified by S[employer] ion Details LastModified Time Do you use any illicit or recreational drugs? No Information not available 01/29/2024 Do you or have you ever used any other forms of tobacco or nicotine? Yes Information not available 02/07/2023 What is your level of alcohol consumption? None Information not available 02/07/2023 Do you or have you ever used e-cigarettes or vape? Former user of electronic cigarettes Information not available 02/07/2023 Mental Status None recorded. Family History Nothing Reported Notes:Father: Aneurysm Mater nal Grandmother: Hypertension Mother: Cervical Cancer, Hypertension Paternal Grandfather: Cancer, Hypertension, Aneurysm Paternal Grandmother: Cancer, Hypertension Medical History Condition Response Coronary Artery Disease N Other N Gout N Kidney Stones N Blood Diseases N Hyperthyroidism N Breast Cancer N Blood Transfusion N Depression Y Hypothyroidism N Lung Disease N COPD N Defects or Inherited Disease N Developmental or Behavioral Disorders N Breast Problem N Difficulty Swallowing N Anesthesia Complications N Meniere's disease N Anxiety Disorder N Muscle, Joint, or Bone Problems N Vision or Eye Problems N Arthritis N Polyps N Infertility N Cancer N Varicosities N Stroke N Endometriosis N Bladder or Kidney Problems N High Cholesterol N Liver Disease N Fibromyalgia N Headaches Y Kidney Disease N Allergies/Hayfever N Heart Problems N Ear or Hearing Problems N Hospitalizations N Thyroid Problems N GI Problems N ADD/ADHD N Skin Problems N Eating Disorder N Anemia N Constipation N Mental Illness N Ovarian Cancer N Diabetes N Bedwetting N Seizures/Epilepsy N Tuberculosis N Eczema N Diverticulitis N Abuse/Domestic Violence N Asthma N Reflux/GERD N Hepatitis N Heart Disease N Pulmonary Embolism N Pre-Eclampsia N Hypertension N Chronic Ear Infections N Osteoporosis N Chicken Pox N Autism Spectrum Disorder (ASD) N Thrombophilias N Gynecological HistoryNo gynecological history recorded. Obstetrics History GPAL:G 4 P 4 0 0 4 Type Value Full Term 4 Living 4 Total 4 Immunizations Vaccine Type Date Status Note Provider Nam e and Address Organization Details Recorded Time Tdap 02/22/2022 completed Not Available [employer] 02/24/2023 02:32:45 Past Encounters Encounter ID Performer Location Encounter Start Date Encounter Closed Date Diagnosis/Indication Diagnosis SNOMED-CT Code Diagnosis ICD10 Code Diagnosis IMO Codes Diagnosis Note [id number] Stefany Hurtado MD [facility] ([facility]) [address] [place] [id number] 5 10/17/2022 12:41:50 10/23/2022 17:23:19 Depressive disorder 62189771 F32.9 Mixed anxi ety and depressive disorder 250577361 F41.8 [id number] Stefany Hurtado MD [facility] ([facility]) [address] [place] [id number] 5 02/07/2023 10:39:11 02/19/2023 15:06:02 Depressive disorder 30384124 F32.9 Chronic he adache disorder 419778559 G44.89 [id number] ALBERT PRESSLEY [facility] ([facility]) [address] [place] [address] 04/25/2023 17:32:13 04/25/2023 18:42:47 Pain in right lower limb 865733137 M79.604 Discussed with patient that I do believe this is muscular in nature. Encouraged to participat e in daily stretches and use Meloxicam daily for 1 week. No evidence of trauma or injury. Recommend a massage. If pain is still present in 7 days, should follow up with PCP. Patient is agreeable to plan of care. [id number] Heath Nova MD [facility] ([facility]) [address] [place] [id number] 5 06/19/2023 12:10:47 06/19/2023 13:56:41 Episodic cluster headache 225630760 G44.170 [id number] Stefany Hurtado MD [facility] ([facility]) [address] [place] [address] [id number] 5 08/06/2023 09:26:59 08/06/2023 11:45:07 Depressive disorder 31698124 F32.9 Chronic he adache disorder 137160788 G44.89 Episodic c luster headache 046146973 G44.019 Migraine 58395001 G43.90 9 [id number] Stefany Hurtado MD [facility] ([facility]) [address] [place] [id number] 5 10/19/2023 11:34:46 10/19/2023 13:48:09 Mixed anxiety and depressive disorder 137203736 F41.8 Migraine 00231209 G43.90 9 Pain in limb 26497944 M7 9.263 [id number] Stefany Hurtado MD [facility] ([facility]) [address] [place] [address] [id number] 5 01/23/2024 11:46:43 01/23/2024 14:19:13 Depressive disorder 25698825 F32.9 Pain of le ft hip joint 8100133778 71973 M25.552 Pain of le ft shoulder joint 1189659392 7532060 M25.512 Sterilizat ion requested 173462718 Z30.2 Trochanter ic bursitis of left hip 9468224632 83974 M70.62 [id number] SRIKANTH ROBERTS [facility] ([facility]) [address] [place] [address] [id number] 5 01/29/2024 12:12:32 01/29/2024 13:04:34 Low back pain 960576765 M54.50 Discussed to take 400mg ibuprofen twice a day for next 5 days with food.Use tizanidine as prescribed .Apply a heating pad for 10 minutes every 2 hours while awake. Perform slow stretches 2 times a day.F/u with PCP in 4-5 days if symptoms persist or worsen. [id number] Stefany Hurtado MD [facility] ([facility]) [address] [place] [address] [id number] 5 05/01/2024 13:40:07 05/01/2024 14:52:43 Low back pain 995763801 M54.50 Pain of le ft hip joint 6635541144 13518 M25.552 Left side sciatica 31979 74874 44604 M54.32 [id number] Stefany Hurtado MD [facility] ([facility]) [address] [place] [address] [id number] 5 08/05/2024 13:19:50 08/05/2024 15:32:42 Low back pain 847718994 M54.50 Pain of le ft hip joint 0277173771 35077 M25.552 Depressive disorder 3548 9007 F32.9 Cough 94832047 R05.9 Neuropathy 159422661 G62 .9 [id number] Stefany Hurtado MD [facility] ([facility]) [address] [place] [address] [id number] 5 10/21/2024 10:47:52 10/21/2024 11:50:32 Neuropathy 542654112 G62.9 Pain of le ft hip joint 4649133225 16006 M25.832 [id number] Eriberto Hill MD [facility] ([facility]) [address] [place] [address] [id number] 5 11/20/2024 10:45:44 11/26/2024 06:46:51 Cervical lymphadenopathy 393770468 R59.0 [id number] Unsure of the cause of this, but the Lymphadnop ahty is c/w reactive lymph nodes. Acute headache 275216451 R51.9 [id number] Patient responds well to ketorolac for her chronic headaches. [id number] SRIKANTH CLEVELAND [facility] ([facility]) [address] [place] [address] [id number] 5 11/21/2024 14:48:07 11/21/2024 16:21:39 Cervical lymphadenopathy 884409077 R59.0 [id number] Continue cefdinir as ordered at previous visit. Acute headache 880381014 R51.9 [id number] Patient encouraged to rest. May continue to take Tylenol and ibu as needed for pain. Patient may need to present to ER for further evaluation and treatment if pain does not subside. Agrees to plan. [id number] Stefany Hurtado MD [facility] ([facility]) [address] [place] [address] [id number] 5 01/29/2025 14:24:26 01/29/2025 15:47:48 Fatigue 54215423 R53.82 [id number] Vaginal bleeding 8924739 06 N93.9 62450 [id number] Stefany Hurtado MD [facility] ([facility]) [address] [place] [address] [id number] 5 02/24/2025 08:51:05 02/25/2025 09:39:22 [id number] Stefany Hurtado MD [facility] ([facility]) [address] [place] [address] [id number] 5 04/30/2025 11:34:48 04/30/2025 13:40:39 Mixed anxiety and depressive disorder 980879926 F41.8 - Increase Lexapro to 20mg; follow-up in a couple of months for evaluation . Lesion of endometrium 92 92659304 9101 N94.89 [id number] - Scheduled for tubal removal and D&C on 05/15/2025 . Health Concerns Section Related Observation LastModified by Organization Detai ls LastModified Time None Recorded Concern Status LastModified by Organization Details LastModified Time None Recorded Advance Directives Directive None Recorded Payers Insurance Date Sequence Insurance Name Policy Number Policy Weinstein Covered Member ID Weinstein Member ID Guarantor Name 05/05/2025 1 [employer] [place]MED[place]AC[place] - HMO) [id number] Violetta Manzanares [id number] Violetta Manzanares 04/29/2025 [place] [facility] (INSTITUTIONAL ) [id number] Violetta Manzanares [id number] Violetta Manzanares 02/17/2025 1 [place] [id number] Violetta Manzanares [id number] Violetta Manzanares Notes Date Note Type Note Provider Name and Address Organization Details Recorded Time 11/20/2024 text/html ROS as noted in the HPI walk inNoticed last night swollen lymph to left side of neck. Patient also reports headache and fatigue. No fever. Eriberto Hill MD [address] [place] [address], [phone], [facility], [place] 11/24/2024 10:17:09 11/21/2024 text/html ROS as noted in the HPI walk inHere yesterday, c/o continued body pain, CAMILO. Patient has history of migraines. Was given toradol yesterday which she states did not help. Has taken otc meds at home with no improvement as well. Patient has been taking cefdinir as ordered yesterday. States that she was told yesterday she probably has mono. SRIKANTH CLEVELAND [address] [place] [address], [phone], [facility], [place] 11/21/2024 15:55:23 01/29/2025 text/html FatigueReported by PatientHPIFor severity, patient reportschange in sleep patternsbut reportssevere. For associated symptoms, patient reportsanxiety,sleep disturbances,unrefres reji sleep, andheadache with onset after the fatiguebut reportsno depression. For quality, patient reportsgeneralized. For duration, patient reportschronicandcons tant. Pt states she has been fatigued for years and would like to have some labs drawn. Pt states for over a year she has bleeding with intercourse, pt states it is almost every time they have sex. Pt states it is bright red bleeding, pt states since she has been bleeding during intercourse her has been having issues with the tip of his penis, it is red and looks like a blister, her had STD testing and everything was negative. He was told it was a fungal bacteria due to her bleeding during sex. Stefany Hurtado MD [address] [place] [address], [phone], [facility], [place]. 01/29/2025 15:36:02 04/30/2025 text/html The patient is a 35-year-old female presenting with pre-operative evaluation and medication management. Mixed Anxiety and Depressive Disorder: - Reports increased dizziness, notably during visits accompanying her grandmother, and inquired about increasing Lexapro dosage. Lesion of Endometrium: - Scheduled for tubal removal and D&C on 05/15/2025 to manage lesion. PT has an appt in [place] on 05/15/25 for a surgery to remove her tubes and D&C to get rid of the mass. Pt would like to talk about increasing her dose of the Lexapro. Pt is having more dizziness, she went with her grandma to get a toe nail removed pt states it was like she could taste the medication and got dizzy, it happened again when when she took her grandma to get her flu. Stefany Hurtado MD [address] [place] [address], [phone], [facility] - [facility] [address] [facility], [place] 04/30/2025 13:31:22 OBGyn Episode No OBEpisode recorded.
[2025-05-09] MEDS: diphenhydrAMINE 50 mg/mL SDV 1mL IVP (21:42)
[2025-05-09] MEDS: morphine 4 mg/mL SDV 1 mL IVP (21:42)
[2025-05-09] MEDS: ondansetron 2 mg/ML SDV 2 mL 4 MG IVP (21:42)
--- NOTE | 2025-05-09 22:07 | W.ED.HA ---
HPI - Headache General: Chief Complaint: Headache Stated Complaint: Migraine Headache Time Seen by Provider: 05/09/25 20:36 Source: patient Mode of arrival: ambulatory Limitations: no limitations History of Present Illness: Patient is a 35-year-old female present to the emergency department planing of migraine headache. States that she has not been able to take her normal abortive therapy due to her upcoming surgery. States she is here for specific migraine treatment, notes that this feels like one of her classical migraines and there are no different characteristics. No neurological deficits or symptoms reported. Vitals are stable at this time. She is noting associated nausea. MD elicited complaint: headache and migraine Pertinent past history: migraines Onset (ago): day(s) Severity: similar to previous episodes Associated symptoms: Reports nausea; Deny chest pain, fever(s), lightheadedness, rash or vomiting Related Data Home Medications ?Medication ?Instructions ?Recorded ?Confirmed [id number] 250 2 tab PO Q6H PRN Headache 01/19/25 05/07/25 mg-250 mg-65 mg tablet (Excedrin Migraine) escitalopram oxalate 20 mg tablet 20 mg PO DAILY 05/07/25 05/07/25 (Lexapro) propranolol 40 mg tablet 40 mg PO DAILY 05/07/25 05/07/25 Previous Rx's ?Medication ?Instructions ?Recorded tramadol 50 mg tablet 50 mg PO DAILY PRN pain #20 tabs 04/07/25 atogepant 60 mg tablet (Qulipta) 60 mg PO DAILY #30 tabs 05/07/25 Allergies Allergy/AdvReac Type Severity Reaction Status Date / Time No Known Allergies Allergy Verified 05/07/25 11:06 Review of Systems General: Reports: 10 or more systems reviewed and unremarkable except in HPI and below Const: Denies: fever(s), chills or fatigue Eyes: Denies: change in vision ENMT: Denies: throat pain, ear or mastoid pain or nasal discharge Card: Denies: chest pain, palpitations, swelling of feet/ankles or lightheadedness Resp: Denies: dyspnea, productive cough or wheezing GI: Reports: nausea; Denies: abdominal pain, vomiting, diarrhea or constipation : Denies: flank pain, difficulty voiding, dysuria or urinary frequency Musc: Denies: neck pain, back pain or joint pain Skin/Breast: Denies: rash Neuro: Reports: headache(s); Denies: numbness in extremities or weakness in extremities PFSH ED PFSH: Medical History Anxiety and depression Family History Mother Hyperlipidemia Hypertension Denies family history of Colon cancer Ovarian cancer Diabetes Clotting disorder Heart disease Breast cancer Bleeding disorder Uterine cancer Stroke Social History Smoking and tobacco/nicotine status: former use of tobacco/nicotine Second hand smoke exposure: No Alcohol intake: current Alcohol intake frequency: holidays/special occasions only Substance/Drug Use: never Physical Exam Const: COMMON NORMALS: no acute distress, patient oriented x3 and no limitations GENERAL APPEARANCE: cooperative, comfortable and well developed ORIENTATION/CONSCIOUSNESS: Yes awake, Yes oriented to person, Yes oriented to place and Yes oriented to time HENMT: COMMON NORMALS: normocephalic, atraumatic and hearing grossly normal bilaterally HEAD & SCALP: normocephalic and atraumatic Eye: COMMON NORMALS: Equal, round and reactive pupils present, EOMs intact bilaterally and conjunctivae normal CONJUNCTIVA: Yes conjunctivae normal PUPIL: Yes Equal, round and reactive pupils present Neck/C-Spine: COMMON NORMALS: full ROM, supple and no JVD Resp: COMMON NORMALS: normal respiratory effort, No retractions, No use of accessory muscles and clear to auscultation bilaterally AUSCULTATION: clear to auscultation bilaterally Cardio: COMMON NORMALS: no JVD, regular rate, regular rhythm, No clicks present (Cardio), No murmurs present (Cardio) and No rub (Cardio) RATE: regular rate RHYTHM: regular rhythm Extremity: COMMON NORMALS: normal to inspection, full ROM and capillary refill normal Neuro: COMMON NORMALS: patient oriented x3, CN's II-XII intact bilaterally, moves all extremities, no focal motor deficits and no sensory deficits noted SENSORIUM/ORIENTATION: Yes oriented to person, Yes oriented to place and Yes oriented to time Skin: COMMON NORMALS: no rashes or lesions noted GENERAL SKIN EXAM: no rashes or lesions noted Course Vital Signs: Vital signs: Vital Signs Temperature 98.3 F 05/09/25 20:28 Pulse Rate 81 10/11/25 22:22 Respiratory Rate 14 05/09/25 22:22 Blood Pressure 117/84 05/09/25 22:22 Pulse Oximetry 100 05/09/25 22:22 Oxygen Delivery Me thod Room Air 05/09/25 20:28 MDM - Headache Medical Decision Making Patient presented for migraine, has not been able to take her abortive therapy as she has upcoming surgery and was told not to take any NSAIDs. Here was treated with migraine cocktail including Decadron, Benadryl, morphine, fluids, and Zofran for nausea. Notes significant improvement will be allowed discharge home. No concern that this was anything other than her typical migraine headache. Neurologically intact on exam. No radiology studies performed this visit Discharge Plan Discharge Patient Disposition: Home Clinical Impression: Migraine Qualifiers: Migraine type: unspecified Status migrainosus presence: with status migrainosus Intractability: intractable Qualified Code(s): G43.911 - Migraine, unspecified, intractable, with status migrainosus Condition: Stable Prescriptions: No Action propranolol 40 mg tablet 40 mg PO DAILY escitalopram oxalate [Lexapro] 20 mg tablet 20 mg PO DAILY Qulipta 60 mg tablet 60 mg PO DAILY Qty: 30 4RF tramadol 50 mg tablet 50 mg PO DAILY PRN (Reason: pain) Qty: 20 0RF Rx Instructions: Take once daily as needed for migraines Excedrin Migraine 250-250-65 mg Tablet 2 tab PO Q6H PRN (Reason: Headache) Discharge Orders: Discharge ED (Routine); Ordered 05/09/25 Ordered By: Deven Abernathy Referrals: Kelby Lopez MD [Primary Care Provider, Family Practice] Patient Instructions: Patient Portal & Bob Instructions Activity Restrictions/Additional Instructions: Please follow-up with primary care as needed. Return with any new or worsening. Continue taking migraine medications as indicated and warranted when taking into account upcoming surgery. Print Language: Mauritian Coding Level of Care Code ED [facility] Lori Pritchard
[2025-05-09 22:22] VITALS: BP 117/84; PULSE 81; RESP 14; O2SAT 100
== END 2025-05-09 22:22 | disposition home or self-care (01) ==
PROVIDERS: Emergency Provider Physician Assistant; PCP Family Medicine
DX: G43.911 Migraine, unspecified, intractable, with status migrainosus (principal)
CPT/HCPCS: 96361; 96374; 96375; 99284; J1100; J1200; J2270; J2405; J7040

== ENCOUNTER 2025-06-17 04:47 | Emergency (ER) | payer BC, MEDICAID, SELFPAY ==
[2025-06-17 04:52] VITALS: BP 98/79; PULSE 79; RESP 18; TEMP 36.4; O2SAT 97; BMI 23.0
[2025-06-17 05:12] VITALS: BP 90/65; PULSE 81; O2SAT 97
[2025-06-17 05:12] LABS: Hematocrit 44.8 % (36-47); Hemoglobin 14.80 g/dL (11.27-16.99); Mean Corpuscular HGB Conc 33.0 g/dL (30-55); Mean Corpuscular Hemoglobin 28.9 pg (27-33); Mean Corpuscular Volume 87.5 fl (85-98); Nucleated Red Blood Cells % 0 %; Platelet Count 449 10^3/cmm (157-399); Red Blood Count 5.12 10^6/uL (3.85-5.65); White Blood Count 20.93 10^3/uL (3.29-11.43)
[2025-06-17] MEDS: ondansetron 2 mg/ML SDV 2 mL 4 MG IVP (05:20)
[2025-06-17 05:26] LABS: Alanine Aminotransferase 30 U/L (0-33); Albumin Level 4.8 g/dL (3.5-5.2); Alkaline Phosphatase 63 U/L (35-105); Anion Gap 16.7 (5-19); Aspartate Amino Transferase 29 U/L (0-32); Blood Urea Nitrogen 21 mg/dL (6-20); Calcium 9.5 mg/dL (8.5-10.5); Carbon Dioxide 28 mmol/L (22-29); Chloride 102 mmol/L (98-107); Globulin 2.6 g/dL (1.3-4.6); Glucose 163 mg/dL (65-115); Lipase 34 U/L (13-60); Magnesium 1.8 mg/dL (1.7-2.3); Osmolality Calculated 301 mOsm/kg (285-295); Potassium 4.7 mmol/L (3.5-5.1); Sodium 142 mmol/L (136-145); Total Protein 7.4 g/dL (6.6-8.7)
--- OUTSIDE RECORDS SUMMARY | 2025-06-17 05:31 | XMS_ITS | Data Portability ---
Author Organization MARIE [facility], LMeghanLMeghanCMeghan, [facility] Address [address] [place] [phone] Care Team Providers Care Planning Aide Name Role Phone STEFANY HURTADO Primary Care Provider Assessment Encounter Date Assessment Date Assessment LastModified [...] + TV, DNA, urine/ swab 2024 025 [facility] ([facility]), [address] [place] [address], [phone], 01/29/2025 17:32:47 pap, IG + reflex HPV mRNA E6/E7 2024 025 [facility], [address] [place] [address], [address] [facility] [place], [phone], 02/03/2025 17:40:42 CBC 2024 025 [facility], [address], [address], [place], [address], 01/29/2025 16:05:17 CMP, serum or plasma 2024 025 [facility], [address] [facility] [address], [address], [place], [address], 01/29/2025 16:13:02 thyrot ropin, QN, serum or plasma 2024 025 [facility], [address] [facility], [address], [place], [address], 01/29/2025 16:16:23 urinal ysis, comple te 2024 025 [facility], [address], [address], [place], [address], 01/29/2025 16:13:05 Referral None record ed. Procedures None record ed. Surgeries None record ed. Imaging US, pelvis , comple te - [id number] & [id number] transv aginal 2024 025 [facility], [address] [facility], [place], [address], 02/25/2025 09:27:06 Medication Orders Lexapr o 20 mg tablet 2024 025 [id number], [address] [facility] [address], [address], [place], [address], 04/30/2025 13:06:41 ketoro lac 60 mg/2 mL intram uscula r soluti on 2024 025 [email or web address] Not available 01/29/2025 14:31:19 dexame thason e sodium phosph ate 4 mg/mL inject ion soluti on 2024 025 [email or web address] Not available 01/29/2025 14:30:19 cefdin ir 300 mg capsul e [address] [id number], [address], [address], [place], [address], 01/29/2025 14:30:08 ketoro lac 60 mg/2 mL intram uscula r soluti on 2024 025 [email or web address] Not available 01/29/2025 14:31:19 Patient TargetsNo targets recorded. Patient Instructions Encounter Date Encounter Id Patient Instructions Last Modified By Organization Details Last Modified Time 04/30/2025 [id number] - Increase Lexapro dose to 20mg as [...] 7.1 x10 4.0-10 .5 Not Available [facility] [address], [place], [address], 01/29/2025 16:05:17 01/30/20 25 01/29/2025 CBC RBC 4.91 x10 3.50-5 .50 Not Available [facility] [address], [place], [address], 01/29/2025 16:05:17 01/30/2001/29/2025 CBC HGB 14.1 g/dL 12.0-1 6.0 Not Available [facility] [address], [place], [address], 01/29/2025 16:05:17 01/30/2001/29/2025 CBC HCT 43.0 % 37.0-4 7.0 Not Available [facility] [address], [place], [address], 01/29/2025 16:05:17 01/30/2001/29/2025 CBC MCV 87.6 fL 80.0-9 9.9 Not Available [facility] [address], [place], [address], 01/29/2025 16:05:17 01/30/2001/29/2025 CBC MCH 28.7 pg 27.0-3 2.0 Not Available [facility] [address] [facility] [address], [place], [address], 01/29/2025 16:05:17 01/30/2001/29/2025 CBC MCHC 32.7 g/dL 32.0-3 6.0 Not Available [facility] [address] [facility] [address] [facility] 1, [place], [address], 01/29/2025 16:05:17 01/30/2001/29/2025 CBC RDW 14.1 % 11.5-1 4.5 Not Available [facility] [address] [facility] [address] [facility] 1, [place], [address], 01/29/2025 16:05:17 01/30/2001/29/2025 CBC plt 279.8 x10 140.0- 451.0 Not Available [facility] [address] [facility] 1, [place], [address], 01/29/2025 16:05:17 01/30/20 25 01/29/2025 CBC lymphocytes % 27.8 % 20.0-5 0.0 Not Available [facility] [address] [facility] [address] [facility] 1, [place], [address], 01/29/2025 16:05:17 01/30/20 25 01/29/2025 CBC granulcytes % 60.8 % 30.0-7 0.0 Not Available [facility] [address] [facility] [address] [facility] 1, [place], [address], 01/29/2025 16:05:17 01/30/20 25 01/29/2025 CBC monocytes % 7.1 % 2.0-16 .0 Not Available [facility] [address] [facility], [place], [address], 01/29/2025 16:05:17 01/30/20 25 01/29/2025 CBC granulcytes# 4.3 x10 Not Marcy ilable [facility] [address] [facility], [place], [address], 01/29/2025 16:05:17 01/30/20 25 01/29/2025 CBC lymphocytes # 2.0 x10 Not Available [facility] [address] [facility], [place], [address], 01/29/2025 16:05:17 01/30/2001/29/2025 CBC monocytes # 0.5 x10 Not Avai lable [facility] [address] [facility], [place], [address], 01/29/2025 16:05:17 01/30/20 25 01/29/2025 CMP (FEMA LE) glucose 92.0 mg/dL 60.0-9 9.0 Not Available [facility] [address] [facility], [place], [address], 01/29/2025 16:13:02 01/30/20 25 01/29/2025 CMP (FEMA LE) BUN (blood urea nitrogen) 14.0 mg/dL 10.0-2 6.0 Not Available [facility] [address] [facility] 1, [place], [address], 01/29/2025 16:13:02 01/30/20 25 01/29/2025 CMP (FEMA LE) creatinine (serum) 0.6 mg/dL 0.4-1. 5 Not Available [facility] [address] [facility] [facility] 1, [place], [address], 01/29/2025 16:13:02 01/30/20 25 01/29/2025 CMP (FEMA LE) BUN/creatini ne ratio 23.33 ratio Not Available [facility] [address] [facility], [place], [address], 01/29/2025 16:13:02 01/30/20 25 01/29/2025 CMP (FEMA LE) eGFR calculated 120.9 Not Available [facility] [address] [facility] [address] [facility] 1, [place], [address], 01/29/2025 16:13:02 01/30/20 25 01/29/2025 CMP (FEMA LE) total protein 7.4 g/dL 6.0-8. 5 Not Available [facility] [address] [facility] [address] [facility] 1, [place], [address], 01/29/2025 16:13:02 01/30/20 25 01/29/2025 CMP (FEMA LE) total bilirubin 0.9 mg/dL 0.2-1. 3 Not Available [facility] [address] [facility] [address] [facility] 1, [place], [address], 01/29/2025 16:13:02 01/30/20 25 01/29/2025 CMP (FEMA LE) albumin 4.5 g/dL 3.5-5. 5 Not Available [facility] [address] [facility], [place], [address], 01/29/2025 16:13:02 01/30/20 25 01/29/2025 CMP (FEMA LE) globulin 2.[address] [facility] [address] [facility] [address], [place], [address], 01/29/2025 16:13:02 01/30/20 25 01/29/2025 CMP (FEMA LE) AST (SGOT) 30.0 U/L 0.0-46 .0 Not Available [facility] [address] [facility] [address], [place], [address], 01/29/2025 16:13:02 01/30/20 25 01/29/2025 CMP (FEMA LE) altv (SGPT) 35.0 U/L 13.0-6 9.0 normal Not Available [facility] [address] [facility] [address], [place], [address], 01/29/2025 16:13:02 01/30/20 25 01/29/2025 CMP (FEMA LE) A/G ratio 1.6 ratio Not Available [facility] [address] [facility] [address], [place], [address], 01/29/2025 16:13:02 01/30/20 25 01/29/2025 CMP (FEMA LE) ALP phos 56.0 U/L 30.0-1 40.0 normal Not Available [facility] [address] [facility] [address], [place], [address], 01/29/2025 16:13:02 01/30/20 25 01/29/2025 CMP (FEMA LE) calcium 9.1 mg/dL 8.4-10 .5 Not Available [facility] [address] [facility], [place], [address], 01/29/2025 16:13:02 01/30/20 25 01/29/2025 CMP (FEMA LE) sodium 138.0 mmol/ L 136.0- 145.0 Not Available [facility] [address] [facility], [place], [address], 01/29/2025 16:13:02 01/30/20 25 01/29/2025 CMP (FEMA LE) potassium 3.8 mmol/ L 3.5-5. 1 Not Available [facility] [address] [facility], [place], [address], 01/29/2025 16:13:02 01/30/20 25 01/29/2025 CMP (FEMA LE) chloride 103.0 mmol/ L 98.0-1 10.0 normal Not Available [facility] [address] [facility], [place], [address], 01/29/2025 16:13:02 01/30/20 25 01/29/2025 CMP (FEMA LE) C02 28.0 mmol/ L 22.0-3 1.0 Not Available [facility] [address] [facility], [place], [address], 01/29/2025 16:13:02 01/30/2001/29/2025 CMP (FEMA LE) anion gap 7.0 calc Not Available [facility] [address] [facility], [place], [address], 01/29/2025 16:13:02 01/30/20 25 01/29/2025 CMP (FEMA LE) osmolality 285.3 calc Not Available [facility] [address] [facility], [place], [address], 01/29/2025 16:13:02 01/30/20 25 01/29/2025 URINA LYSIS WITH MICRO color YELLOW Not Available [facility] [address], [place], [address], 01/29/2025 16:13:05 01/30/20 25 01/29/2025 URINA LYSIS WITH MICRO clarity CLEAR Not Available [facility] [address], [place], [address], 01/29/2025 16:13:05 01/30/20 25 01/29/2025 URINA LYSIS WITH MICRO glu NEGATI VE Not Available [facility] [address], [place], [address], 01/29/2025 16:13:05 01/30/20 25 01/29/2025 URINA LYSIS WITH MICRO bili NEGATI VE Not Available [facility] [address], [place], [address], 01/29/2025 16:13:05 01/30/20 25 01/29/2025 URINA LYSIS WITH MICRO ket NEGATI VE Not Available [facility] [address], [place], [address], 01/29/2025 16:13:05 01/30/20 25 01/29/2025 URINA LYSIS WITH MICRO S.g 1.025 1.005- 1.025 Not Available [facility] [address], [place], [address], 01/29/2025 16:13:05 01/30/20 25 01/29/2025 URINA LYSIS WITH MICRO pH 6.5 5.0-7. 0 Not Available [facility] [address], [place], [address], 01/29/2025 16:13:05 01/30/20 25 01/29/2025 URINA LYSIS WITH MICRO pro NEGATI VE Not Available [facility] [address], [place], [address], 01/29/2025 16:13:05 01/30/20 25 01/29/2025 URINA LYSIS WITH MICRO uro 0.2 E.U./D L Not Available [facility] [address], [place], [address], 01/29/2025 16:13:01/30/20 25 01/29/2025 URINA LYSIS WITH MICRO nit NEGATI VE Not Available [facility] [address], [place], [address], 01/29/2025 16:13:01/30/20 25 01/29/2025 URINA LYSIS WITH MICRO blo NEGATI VE Not Available [facility] [address], [place], [address], 01/29/2025 16:13:01/30/20 25 01/29/2025 URINA LYSIS WITH MICRO kayy NEGATI VE Not Available [facility] [address], [place], [address], 01/29/2025 16:13:01/30/20 25 01/29/2025 URINA LYSIS WITH MICRO WBC 3-4 abnormal Not Available [facility] [address], [place], [address], 01/29/2025 16:13:01/30/20 25 01/29/2025 URINA LYSIS WITH MICRO RBC 1-2 abnormal Not Available [facility] [address], [place], [address], 01/29/2025 16:13:05 01/30/20 25 01/29/2025 URINA LYSIS WITH MICRO epi cells 4-6 abnormal Not Available [facility] [address] [facility], [place], [address], 01/29/2025 16:13:05 01/30/20 25 01/29/2025 URINA LYSIS WITH MICRO bacteria TRACE OF MIXED GIOVANNI abnormal Not Available [facility] [address] [facility], [place], [address], 01/29/2025 16:13:05 01/30/20 25 01/29/2025 URINA LYSIS WITH MICRO other NEG Not Available [facility] [address] [facility], [place], [address], 01/29/2025 16:13:05 01/30/20 25 01/29/2025 TSH TSH 0.50 uIU/m L 0.49-3 .82 Not Available [facility] [address] [facility], [place], [address], 01/29/2025 16:16:23 01/30/20 25 02/03/2025 THINP REP TIS PAP (REFL ) HPV MRNA E6/E7 clinical information: normal Stefanie l exam Not Available [address] [address] [place], [address], 02/03/2025 17:40:42 01/30/20 25 02/03/2025 THINP REP TIS PAP (REFL ) HPV MRNA E6/E7 LMP: normal NONE GIVEN Not Available [facility] [address] [place], [address], 02/03/2025 17:40:42 01/30/20 25 02/03/2025 THINP REP TIS PAP (REFL ) HPV MRNA E6/E7 prev. Pap: normal NONE GIVEN Not Available [facility] [address] [address] [place], [address], 02/03/2025 17:40:42 01/30/20 25 02/03/2025 THINP REP TIS PAP (REFL ) HPV MRNA E6/E7 prev. BX: normal NONE GIVEN Not Available [address] [address] [place], [address], 02/03/2025 17:40:42 01/30/20 25 02/03/2025 THINP REP TIS PAP (REFL ) HPV MRNA E6/E7 source: normal Cervi x, Endoc ervix Not Available [address] [address] [place], [address], 02/03/2025 17:40:42 01/30/20 25 02/03/2025 THINP REP TIS PAP (REFL ) HPV MRNA E6/E7 statement of adequacy: Speci men proce ssed and exami taylor, but unsat isfac tory for evalu ation due to an insuf ficie nt numbe r of squam ous cells . Age and/o r menst rual statu s not provi ded Not Available [address] [address] [place], [address], 02/03/2025 17:40:42 01/30/20 25 02/03/2025 THINP REP TIS PAP (REFL ) HPV MRNA E6/E7 interpretati on/result: Cytol ogy Resul ts: Unabl e to provi de inter preta tion due to unsat isfac tory speci men adequ acy. Not Available [address] [address] [place], [address], 02/03/2025 17:40:42 01/30/20 25 02/03/2025 THINP REP TIS PAP (REFL ) HPV MRNA E6/E7 comment: normal This case could not be evalu ated with compu ter billy carol techn ology . The slide was kenan sosa scree taylor accor ding to routi [...] is not recom elsy dennison Not Available [address] [address] [place], [address], 02/03/2025 17:40:42 01/30/20 25 02/03/2025 THINP REP TIS PAP (REFL ) HPV MRNA E6/E7 cytotechnolo gist: normal AAM, CT( CP) CT Scree maxine Locat ion: [facility], [address] [facility] [place] [address] CLIA: [id number] Slide prepa ratio n perfo rmed at: [facility], [address] [place] [facility] [place] [address] CLIA: [id number] Not Available [facility] [address] [address] [place], [address], 02/03/2025 17:40:42 01/30/20 25 02/03/2025 THINP REP TIS PAP (REFL ) HPV MRNA E6/E7 review cytotechnolo gist: normal AVN, CT( CP CT Scree maxine Locat ion: [facility], [address] [facility] [place] [address] CLIA: [id number] Slide prepa ratio n perfo rmed at: [facility], [address] [facility] [place] [address] CLIA: [id number] Not Available [address] [address] [place], [address], 02/03/2025 17:40:42 01/30/20 25 02/03/2025 THINP REP [...] clini jossue infor matio n. Not Available [facility] [address] [address], [place], [address], 02/03/2025 17:40:42 01/30/20 25 01/29/2025 CT + NG + TV, DNA, urine /swab Chlamydia negati ve Not Available [facility] ([facility]) [address] [place], [address], 01/29/2025 15:26:59 01/30/20 25 01/29/2025 CT + NG + TV, DNA, urine /swab Gonorrhea negati ve Not Available [facility] ([facility]) [address] [place], [address], 01/29/2025 15:26:59 01/30/20 25 01/29/2025 CT + NG + TV, DNA, urine /swab Trichomonas negati ve Not Available [facility] ([facility]) [address] [place], [address], 01/29/2025 15:26:59 02/26/20 25 02/24/2025 US, pelvi s, compl ete No observ ation record ed. [address] [place], [address], 03/19/2025 16:31:12 Result Notes None recorded. Problems Name Problem SNOMED Code Status Onset Date Resolution Date Notes Provider Name and Address Organization Details Recorded Time Chronic headache disorder 644629746 Active 2022 MARIE Wolfe [facility] Zoe Knight 19:00:18 Depressiv e disorder 51482137 Active 2022 MAR[facility] Wolfe [facility] 19:00:20 Episodic cluster headache 182144987 Active 2022 PAPA malhotra [facility] L[facility]CM[facility]han 19:00:22 Low back pain 479258120 Active 2023 PAPA malhotra, [facility] L[facility]CM[facility]han 19:00:25 Pain of left hip joint 358868409970 100 Active 2023 PAPA malhotra, [facility] 19:00:31 Neuropath y 721749035 Active 2024 PAPA malhotra [facility] L[facility]L.CM[facility]han 19:00:27 Cervical lymphaden opathy 717095799 Completed 202401/29/2025 KULWANT Flores [facility] 14:32:54 Acute headache 519740794 Active 2024 KULWANT Flores [facility] 14:32:49 Lesion of endometri 202046290785 01 Active 2024 PAPA malhotra [facility] 16:28:46 Mixed anxiety and depressiv e disorder 491926900 Active 2024 PAPA malhorta [facility] 18:46:22 Problem Notes None recorded. Procedures Surgical History Date Name Laterality Status Provider Name and Address Organization Details Recorded Time 01/23/2024 Joint Inj Kenalog- Shoulder, Hip, Knee completed Stefany Hurtado MD [address] [place] [address], [phone], [facility] L.L[facility]CM[facility]han 01/23/2024 12:15:16 Imaging Results None recorded. [...] Updated DateTime 5 160.02 cm 22.5 kg/m2 56709.2 3 g 97 % 97 % 85 /min 98.3 [degF] 115/72 mm[Hg] [facility] 5 10:54:10 Date Recorded Body height Body mass index (BMI) Body weight Body temperature Systolic And Diastolic Provider Name and Address Organization Details Last Updated DateTime 11/21/2024 160.02 cm 22.5 kg/m2 05731.2 3 g 98.9 [degF] 115/58 mm[Hg] [facility] 5 14:53:33 Date Recorded Body height Body mass index (BMI) Body weight Oxygen saturation Oxygen saturation in Arterial blood by Pulse oximetry Heart rate Respiratory rate Body temperature Systolic And Diastolic Provider Name and Address Organization Details Last Updated DateTime 5 160.02 cm 22.9 kg/m2 18048.5 2 g 98 % 98 % 100 /min 18 /min 98.4 [degF] 118/62 mm[Hg] KULWANT HARRIS [facility] 5 14:47:16 Date Recorded Body height Body mass index (BMI) Body weight Oxygen saturation Oxygen saturation in Arterial blood by Pulse oximetry Heart rate Respiratory rate Body temperature Systolic And Diastolic Provider Name and Address Organization Details Last Updated DateTime 5 160.02 cm 23.2 kg/m2 79177 g 99 % 99 % 77 /min 18 /min 98.2 [degF] 122/74 mm[Hg] KULWANT HARRIS [facility] 5 12:50:23 Social History Question Answer Notes LastModified by [employer] ion Details LastModified Time Tobacco Smoking Status Never Smoker PAPAKEVIN VIRAMONTESMela malhotra [facility] 02/07/2023 11:56:52 What Was The Date Of Your Most Recent Tobacco Screening? 01/29/2024 Information not available 01/29/2024 Sex: Unknown Functional Status Question Answer Note LastModified by [employer] ion Details LastModified Time Do you use [...] Codes Diagnosis Note [id number] Stefany Hurtado MD [facility] ([facility]) [address] [place] [phone] 10/17/2022 12:41:50 10/23/2022 17:23:19 Depressive disorder 71303205 F32.9 Mixed anxi ety and depressive disorder 607317810 F41.8 [id number] Stefany Hurtado MD [facility] ([facility]) [address] [place] [phone] 02/07/2023 10:39:11 02/19/2023 15:06:02 Depressive disorder 34768322 F32.9 Chronic he adache disorder 060307559 G44.89 [id number] ALBERT PRESSLEY [facility] ([facility]) [address] [place] [address] 04/25/2023 17:32:13 04/25/2023 18:42:47 Pain in right lower limb 265229370 M79.604 Discussed with patient that I do believe this is muscular in nature. Encouraged to participat e in daily stretches and use Meloxicam daily for 1 week. No evidence of trauma or injury. Recommend a massage. If pain is still present in 7 days, should follow up with PCP. Patient is agreeable to plan of care. [id number] Heath Nova MD [facility] ([facility]) [address] [place] [phone] 06/19/2023 12:10:47 06/19/2023 13:56:41 Episodic cluster headache 982352433 G44.278 [id number] Stefany Hurtado MD [facility] ([facility]) [address] [place] [phone] 08/06/2023 09:26:59 08/06/2023 11:45:07 Depressive disorder 85725582 F32.9 Chronic he adache disorder 565695994 G44.89 Episodic c luster headache 965551874 G44.019 Migraine 77313999 G43.90 9 [id number] Stefany Hurtado MD [facility] ([facility]) [address] [place] [phone] 10/19/2023 11:34:46 10/19/2023 13:48:09 Mixed anxiety and depressive disorder 377876347 F41.8 Migraine 17438918 G43.90 9 Pain in limb 80920486 M7 9.337 [id number] Stefany Hurtado MD [facility] ([facility]) [address] [place] [phone] 01/23/2024 11:46:43 01/23/2024 14:19:13 Depressive disorder 44509037 F32.9 Pain of le ft hip joint 1366216646 78437 M25.552 Pain of le ft shoulder joint 5564079163 6776952 M25.512 Sterilizat ion requested 184071029 Z30.2 Trochanter ic bursitis of left hip 0404888618 77763 M70.62 [id number] SRIKANTH ROBERTS [facility] ([facility]) [address] [place] [phone] 01/29/2024 12:12:32 01/29/2024 13:04:34 Low back pain 979086596 M54.50 Discussed to take 400mg ibuprofen twice a day for next 5 days with food.Use tizanidine as prescribed .Apply a heating pad for 10 minutes every 2 hours while awake. Perform slow stretches 2 times a day.F/u with PCP in 4-5 days if symptoms persist or worsen. [id number] Stefany Hurtado MD [facility] ([facility]) [address] [place] [phone] 05/01/2024 13:40:07 05/01/2024 14:52:43 Low back pain 024692878 M54.50 Pain of le ft hip joint 1453542892 15359 M25.552 Left side sciatica 95561 17475 24898 M54.32 [id number] Stefany Hurtado MD [facility] ([facility]) [address] [place] [phone] 08/05/2024 13:19:50 08/05/2024 15:32:42 Low back pain [id number] M54.50 Pain of le ft hip joint [id number] 78926 M25.552 Depressive disorder 3548 9007 F32.9 Cough [id number] R05.9 Neuropathy [id number] G62 .9 [id number] Stefany Hurtado MD [facility] ([facility] [address]) [address] [place] [address] [phone] 10/21/2024 10:47:52 10/21/2024 11:50:32 Neuropathy [id number] G62.9 Pain of le ft hip joint [id number] 14832 M25.975 [id number] Eriberto Hill MD [facility] ([facility]) [address] [place] [address] [phone] 11/20/2024 10:45:44 11/26/2024 06:46:51 Cervical lymphadenopathy [id number] R59.0 [id number] Unsure of the cause of this, but the Lymphadnop ahty is c/w reactive lymph nodes. Acute headache [id number] R51.9 [id number] Patient responds well to ketorolac for her chronic headaches. [id number] SRIKANTH CLEVELAND [facility] ([facility]) [address] [place] [address] [phone] 11/21/2024 14:48:07 11/21/2024 16:21:39 Cervical lymphadenopathy [id number] R59.0 [id number] Continue cefdinir as ordered at previous visit. Acute headache [id number] R51.9 [id number] Patient encouraged to rest. May continue to take Tylenol and ibu as needed for pain. Patient may need to present to ER for further evaluation and treatment if pain does not subside. Agrees to plan. [id number] Stefany Hurtado MD [facility] ([facility]) [address] [place] [address] [phone] 01/29/2025 14:24:26 01/29/2025 15:47:48 Fatigue [id number] R53.82 [id number] Vaginal bleeding [id number] N93.9 [id number] Stefany Hurtado MD [facility] ([facility]) [address] [place] [address] [phone] 02/24/2025 08:51:05 02/25/2025 09:39:22 [id number] Steafny Hurtado MD [facility] ([facility]) [address] [place] [address] [phone] 04/30/2025 11:34:48 04/30/2025 13:40:39 Mixed anxiety and depressive disorder [id number] F41.8 - Increase Lexapro to 20mg; follow-up in a couple of months for evaluation . Lesion of endometrium 92 [id number] 9101 N94.89 [id number] - Scheduled for tubal removal and D&C on 05/15/2025 . Health Concerns Section Related Observation LastModified by Organization Detai ls LastModified Time None Recorded Concern Status LastModified by Organization Details LastModified Time None Recorded Advance Directives Directive None Recorded Payers Insurance Date Sequence Insurance Name Policy Number Policy Weinstein Covered Member ID Weinstein Member ID Guarantor Name 05/05/2025 1 [employer] [place] (MEDICAID REPLACEMENT - HMO) [id number] Violetta Manzanares [id number] Violetta Manzanares 04/29/2025 [place] [facility] (INSTITUTIONAL ) [id number] Violetta Manzanares [id number] Violetta Manzanares 02/17/2025 1 [place] [id number] Violetta Manzanares [id number] Violetta Manzanares Notes Date Note Type Note Provider Name and Address Organization Details Recorded Time 11/20/2024 text/html ROS as noted in the HPI walk inNoticed last night swollen lymph to left side of neck. Patient also reports headache and fatigue. No fever. Eriberto Hill MD [address] [place] [address], [phone], [facility], [place] 11/24/2024 10:17:09 11/21/2024 text/html ROS as [...] yesterday she probably has mono. SRIKANTH CLEVELAND [address] [place] [address], [phone], [facility], [place] 11/21/2024 15:55:23 01/29/2025 text/html FatigueReported by [...] her bleeding during sex. Stefany Hurtado MD [address] [place] [address], [phone], [facility], [place]. 01/29/2025 15:36:02 04/30/2025 text/html The patient is a 35-year-old female presenting with pre-operative evaluation and medication management. Mixed Anxiety and Depressive Disorder: - Reports increased dizziness, notably during visits accompanying her grandmother, and inquired about increasing Lexapro dosage. Lesion of Endometrium: - Scheduled for tubal removal and D&C on 05/15/2025 to manage lesion. PT has an appt in [place] on 05/15/25 for a surgery to remove [...] to get her flu. Stefany Hurtado MD [address] [place] [address], [phone], [facility] - [facility], [place]oe 04/30/2025 13:31:22 OBGyn Episode No OBEpisode recorded.
--- OUTSIDE RECORDS SUMMARY | 2025-06-17 05:31 | XMS_ITS | Clinical Summary ---
Author Organization [facility] Administrative Offices Address [address] [place] [phone] Care Team Providers Care Manager Exchange Name Role Phone Unavailable Primary Care Provider [...] hours as needed for Pain. 01/23/2025 Active escitalopram oxalate (Lexapro) 20 mg tablet Take 20 mg by mouth daily. 04/30/2025 Active Active Problems No known active problems Resolved Problems Problem Noted Date Diagnosed Date Resolved Date Endometrial polyp 04/13/2025 06/02/2025 Sterilization consult 04/13/20252024 Postcoital bleeding 04/13/2025 06/02/20 25 Encounters Date Type Department Care Team Description 06/02/2025 11:45 AM DIRECTOR CORPORATE Office Visit [facility] Hector Serranoaway [address] [place] [phone] Beti Bynum MD Postoperative follow-up (Primary Dx) 05/21/2025 Orders Only [facility] Hector Serranoaway [address] [place] [address] Beti Bynum MD 05/19/2025 External Device Data STL ABSTRACTION Provider, Abstract 04/13/2025 11:00 AM CDT Office Visit [facility] Ziggy Theron [address] [place] [address] Beti Bynum MD Endometrial polyp (Primary Dx); Screening for cervical cancer; Screening for human papillomavirus (HPV); Sterilization consult; Postcoital bleeding 03/24/2025 Telephone [facility] OBAurora Cody Ida [address] [place] [address] Beti Bynum MD Referral (From Dr Kelby [...] worry about transportation for future doctor visits, excelsior picker medication, etc.? No 2024 Housing Stability [...] Sign Reading Time Taken Comments Blood Pressure 112/76 06/02/2025 11:22 AM DIRECTOR CORPORATE Pulse - - Temperature - - Respiratory Rate - - Oxygen Saturation - - Inhaled Oxygen Concentration - - Weight 60.3 kg (133 lb) 06/02/2025 11:22 AM DIRECTOR CORPORATE Height 160 cm (5' 3 ) 06/02/2025 11:22 AM DIRECTOR CORPORATE Body Mass Index 23.56 06/02/2025 11:22 AM DIRECTOR CORPORATE Plan of Treatment Upcoming Encounters Date Type Department Care Team (Late st Contact Info) Description 06/07/2026 10:50 AM DIRECTOR CORPORATE Office Visit [facility] Hector Ziggy Ida [address] [place] [address] Beti Bynum MD [address] [place] [address] Health Maintenance Due Date Last Done Comments HEPATITIS B VACCINES (1 of 3 - 19+ 3-dose series) 03/30 HPV/Cotest (21-29) 2010 HPV VACCINES (1 - 3-dose SCDM series) 2016 CERVICAL CANCER SCREENING 2019 HPV/Cotest (30-65) 2019 PAP SMEAR 2019 INFLUENZA VACCINE (#1) 2025 DTAP/TDAP/TD VACCINES (2 - Td or Tdap) 02/23/2032 Procedures Procedure Name Priority Date/Time Associated Diagnosis Comments PATHOLOGY REPORT Routine 05/18/2025 8:28 AM CDT from Last 3 Months Results * PATHOLOGY REPORT (05/18/2025 8:28 AM CDT) us Beti Bynum MD PATHOLOGY/CYTOLOGY ORDERA BLES Final Result [facility] JAMES PEREZSTEPHANIE VITALE CLIA# [id number] [address] [place] [address] from Last 3 Months Insurance [facility] MEDICAID
--- NOTE | 2025-06-17 05:48 | CTR_ITS ---
PROCEDURE INFORMATION: Exam: CT Abdomen And Pelvis With Contrast Exam date and time: 06/17/2025 6:03 AM Age: 35 years old Clinical indication: Pain; Other: Abrupt nv, moderate diffuse ttp, wbc 20 TECHNIQUE: Imaging protocol: Computed tomography of the abdomen and pelvis with contrast. Radiation optimization: All CT scans at this facility use at least one of these dose optimization techniques: automated exposure control; mA and/or kV adjustment per patient size (includes targeted exams where dose is matched to clinical indication); or iterative reconstruction. Contrast material: [id number]; Contrast volume: 100 ml; Contrast route: INTRAVENOUS (IV); COMPARISON: US pelv w/transvag [id number] 02/24/2025 8:11 AM RADIATION DOSE METRICS: Total DLP (mGy-cm): 358.7 FINDINGS: Liver: Enhancing 18 mm mass in the right hepatic lobe is probably a hemangioma. Gallbladder and biliary ducts: Normal. No calcified stones. No ductal dilation. Pancreas: Normal. No ductal dilation. Spleen: Normal. No splenomegaly. Adrenal glands: Normal. No mass. Kidneys and ureters: Normal. No hydronephrosis. Stomach and bowel: Unremarkable. No obstruction. No mucosal thickening. Appendix: No evidence of appendicitis. Intraperitoneal space: Moderate free fluid within the pelvis has slightly increased density measuring 30 Hounsfield units. This probably contains blood products. The most likely etiology is a ruptured ovarian cyst. Correlate clinically for etiologies. Vasculature: Unremarkable. No abdominal aortic aneurysm. Lymph nodes: Unremarkable. No enlarged lymph nodes. Urinary bladder: Unremarkable as visualized. Reproductive: See Intraperitoneal space finding. Bones/joints: Unremarkable. No acute fracture. Soft tissues: Unremarkable. CT/CT abdomen pelvis w con* [id number] IMPRESSION: Small/moderate high density fluid within the pelvis. This suggests a ruptured ovarian cyst but other etiologies are not excluded. Correlate clinically.
--- NOTE | 2025-06-17 06:13 | W.ED.ABDPA2 ---
HPI - Abdominal Pain General: Chief Complaint: Abdominal Pain Stated Complaint: ABD Pain\D\V Time Seen by Provider: 06/17/25 05:00 History of Present Illness: Patient is a 35-year-old female with no past medical history who presents with acute onset of vomiting and diffuse abdominal pain that began upon awakening this morning. She reports inability to tolerate oral intake, including water, due to persistent emesis. States she had chicken Andre for dinner last night, was cooked with city water which is under a boil effect currently. The abdominal pain is described as a burning sensation, generalized throughout the abdomen, and was not present prior to her waking up with these acute symptoms. She also endorses watery diarrhea. Her only previous abdominal surgery was a tubal ligation she has attempted various home remedies, including showering, lying down, using a heating pad, and sleeping with fans, without relief. Associated Symptoms: Reports diarrhea, nausea and vomiting Related Data Home Medications ?Medication ?Instructions ?Recorded ?Confirmed zdfditn-wfzwvfeymhqve-nnskvyuh 250 2 tab PO Q6H PRN Headache 01/19/25 05/07/25 mg-250 mg-65 mg tablet (Excedrin Migraine) escitalopram oxalate 20 mg tablet 20 mg PO DAILY 05/07/25 05/07/25 (Lexapro) propranolol 40 mg tablet 40 mg PO DAILY 05/07/25 05/07/25 Previous Rx's ?Medication ?Instructions ?Recorded atogepant 60 mg tablet (Qulipta) 60 mg PO DAILY #30 tabs 05/07/25 tramadol 50 mg tablet 50 mg PO DAILY PRN pain #20 tabs 06/04/25 ondansetron 4 mg disintegrating 4 mg PO TID #20 tabs 06/17/25 tablet oxycodone 5 mg tablet 5 mg PO Q8H PRN pain #10 tabs 06/17/25 Allergies Allergy/AdvReac Type Severity Reaction Status Date / Time No Known Allergies Allergy Verified 05/07/25 11:06 Review of Systems General: Reports: 10 or more systems reviewed and unremarkable except in HPI and below Const: Reports: change in appetite GI: Reports: abdominal pain, nausea, vomiting and diarrhea PFSH ED PFSH: Medical History (Updated 06/17/25 @ 06:43 by Geoffrey Young DO) Anxiety and depression Family History Mother Hyperlipidemia Hypertension Denies family history of Colon cancer Ovarian cancer Diabetes Clotting disorder Heart disease Breast cancer Bleeding disorder Uterine cancer Stroke Social History Smoking and tobacco/nicotine status: former use of tobacco/nicotine Second hand smoke exposure: No Alcohol intake: current Alcohol intake frequency: holidays/special occasions only Substance/Drug Use: never Physical Exam Narrative: EXAM NARRATIVE: Appears mildly in distress secondary to pain but afebrile, soft blood pressure but normal heart rate, nontoxic and well-appearing. Abdomen mildly distended, mild tenderness diffusely throughout abdomen, no overlying skin changes, not peritonitic, soft, no CVA tenderness, increased bowel sounds. Mildly dry mucous membranes, slightly delayed cap refill, 2+ pulses throughout. Breathing comfortably on room air, saturating well, normal sinus rhythm with no leg swelling. GCS 15. Course Vital Signs: Vital signs: Vital Signs Temperature 97.6 F 06/17/25 04:52 Pulse Rate 96 06/17/25 06:20 Respiratory Rate 16 06/17/25 06:16 Blood Pressure 90/65 06/17/25 05:12 Pulse Oximetry 97 06/17/25 06:20 Oxygen Delivery Me thod Room Air 06/17/25 06:20 MDM - Abdominal Pain Medical Decision Making -ddx: Foodborne illness, gastroenteritis, pancreatitis, cholecystitis, SBO, dehydration, electrolyte abnormality, appendicitis, intra-abdominal abscess, pyelonephritis - Patient in mild distress secondary to pain on arrival, abrupt onset of symptoms, nausea vomiting diarrhea, possible suspicious water intake, was normal before event, afebrile. Arrives with soft pressure probably secondary to hypovolemia, does not appear septic at this time. Mild generalized abdominal tenderness throughout, not peritonitic, will start with GI cocktail, abdominal labs and reassess, will hold off on CT scan because not localized abdominal pain and will get if labs are rising or pain does not improve. - Patient with minimal relief after initial medications, white count of 20 and so shared decision making with patient, elected to get CT scan at this time, give morphine and Reglan and go from there. Otherwise laboratory studies relatively reassuring, no significant electrolyte abnormality, no KUSUM, no CRP elevation. - Patient's CT scan finding a likely ruptured hemorrhagic ovarian cyst, seemingly correlating with patient's abrupt onset of symptoms, possibly mildly confounded by foodborne illness potentiating her symptoms. She felt much improved with morphine, fluids and Reglan, she was able to tolerate p.o., repeat abdominal exam with very mild diffuse lower tenderness. With her feeling better and an otherwise reassuring ED evaluation, she was able to be discharged home with supportive care recommendations, Zofran and oxycodone to get through the rest of the ruptured cyst pain and advised to follow-up with PCP in few days for reevaluation, discharged in stable condition with at bedside, strict return precautions given. Lab Data 06/17/25 05:02 06/17/25 05:02 Labs/Radiology: Radiology Impressions Abdomen/Pelvis CT 06/17/25 05:48 IMPRESSION: Small/moderate high density fluid within the pelvis. This suggests a ruptured ovarian cyst but other etiologies are not excluded. Correlate clinically. Laboratory Results WBC 20.93 10^3/uL (3.29-11.43) H 06/17/25 05:02 RBC 5.12 10^6/uL (3.85-5.65) 06/17/25 05:02 Hgb 14.80 g/dL (11.27-16.99) 06/17/25 05:02 Hct 44.8 % (36-47) 06/17/25 05:02 MCV 87.5 fl (85-98) 06/17/25 05:02 MCH 28.9 pg (27-33) 06/17/25 05:02 MCHC 33.0 g/dL (30-55) 06/17/25 05:02 RDW 12.6 % (12.1-15.1) 06/17/25 05:02 Plt Count 449 10^3/cmm (157-399) H 06/17/25 05:02 MPV 8.9 fL (7.4-10.4) 06/17/25 05:02 Neut % (Auto) 85.2 % 06/17/25 05:02 Lymph % (Auto) 9.8 % 06/17/25 05:02 [place] % (Auto) 4.2 % 06/17/25 05:02 Eos % (Auto) 0.3 % 06/17/25 05:02 Baso % (Auto) 0.2 % 06/17/25 05:02 Neut # (Auto) 17.81 10^3/uL (1.8-7.7) H 06/17/25 05:02 Lymph # (Auto) 2.1 10^3/uL (0.8-4.8) 06/17/25 05:02 [place] # (Auto) 0.9 10^3/uL (0.2-0.9) 06/17/25 05:02 Eos # (Auto) 0.1 10^3/uL (0.0-0.8) 06/17/25 05:02 Baso # (Auto) 0.0 10^3/uL (0.0-0.1) 06/17/25 05:02 Nucleated RBC % (auto) 0 % 06/17/25 05:02 Nucleated RBCs # 0.0 /100WBC 06/17/25 05:02 Sodium 142 mmol/L (136-145) 06/17/25 05:02 Potassium 4.7 mmol/L (3.5-5.1) 06/17/25 05:02 Chloride 102 mmol/L (98-107) 06/17/25 05:02 Carbon Dioxide 28 mmol/L (22-29) 06/17/25 05:02 Anion Gap 16.7 (5-19) 06/17/25 05:02 BUN 21 mg/dL (6-20) H 06/17/25 05:02 Creatinine 0.8 mg/dL (0.5-0.9) 06/17/25 05:02 GFR Calculation 81.2 mL/min (90-130) L 06/17/25 05:02 Glucose 163 mg/dL (65-115) H 06/17/25 05:02 Calculated Osmolality 301 mOsm/kg (285-295) H 06/17/25 05:02 Calcium 9.5 mg/dL (8.5-10.5) 06/17/25 05:02 Phosphorus 3.0 mg/dL (2.5-4.5) 06/17/25 05:02 Magnesium 1.8 mg/dL (1.7-2.3) 06/17/25 05:02 Total Bilirubin 0.4 mg/dL (0.15-1.2) 06/17/25 05:02 AST 29 U/L (0-32) 06/17/25 05:02 ALT 30 U/L (0-33) 06/17/25 05:02 Alkaline Phosphatase 63 U/L (35-105) 06/17/25 05:02 C-Reactive Protein 3.0 mg/L (0.0-4.9) 06/17/25 05:02 Total Protein 7.4 g/dL (6.6-8.7) 06/17/25 05:02 Albumin 4.8 g/dL (3.5-5.2) 06/17/25 05:02 Globulin 2.6 g/dL (1.3-4.6) 06/17/25 05:02 Lipase 34 U/L (13-60) 06/17/25 05:02 All radiology interpretation(s) finalized by discharge Discharge Plan Discharge Patient Disposition: Home Clinical Impression: Ovarian cyst rupture, Food poisoning, Acute dehydration Condition: Stable Prescriptions: New ondansetron 4 mg tablet,disintegrating 4 mg PO TID Qty: 20 0RF oxycodone 5 mg tablet 5 mg PO Q8H PRN (Reason: pain) Qty: 10 0RF No Action propranolol 40 mg tablet 40 mg PO DAILY escitalopram oxalate [Lexapro] 20 mg tablet 20 mg PO DAILY Qulipta 60 mg tablet 60 mg PO DAILY Qty: 30 4RF tramadol 50 mg tablet 50 mg PO DAILY PRN (Reason: pain) Qty: 20 0RF Rx Instructions: Take once daily as needed for migraines Excedrin Migraine 250-250-65 mg Tablet 2 tab PO Q6H PRN (Reason: Headache) Discharge Orders: Discharge ED (Routine); Ordered 06/17/25 Ordered By: Geoffrey Young Referrals: Kelby Lopez MD [Primary Care Provider, Family Practice] Patient Instructions: Abdominal Pain (ED), Opioid Safety, Pain Management, Patient Portal & Bob Instructions Activity Restrictions/Additional Instructions: You were seen for your abdominal pain and vomiting, you were evaluated with labs and CT scan which found you to most likely have an acute food poisoning and a ruptured ovarian cyst both leading to your symptoms. Your labs were otherwise reassuring, you improved with fluids and medication and were deemed stable to be discharged home. Your pain should slowly improve over the next 24 to 48 hours of this the blood and fluid starts to resorb into your intestines. In the meantime, eat a bland diet, alternate ibuprofen 4 to milligrams and Tylenol 650 mg every 4 hours as needed for the pain, use oxycodone 5 mg for breakthrough pain every 8 hours as needed on top of this. Use the Zofran 4 mg every 8 hours as needed for nausea. Use heating pad for 20 minutes at a time every few hours as well. Return to the ED with severe worsening of your abdominal pain, continuous vomiting, fevers, feeling unwell, episodes of passing out, any other emergent concerns. Print Language: Emirati Coding Level of Care Code ED Religious Activities Director for Lori Pritchard
[2025-06-17 06:16] VITALS: RESP 16; O2SAT 98
[2025-06-17] MEDS: morphine 4 mg/mL SDV 1 mL IVP (06:16)
[2025-06-17] MEDS: metoclopramide 5 mg/mL SDV 2 mL 10 MG IVP (06:17)
[2025-06-17] MEDS: iohexol 350 mg/mL 500 mL Btl (per mL) IV (06:19)
[2025-06-17 06:20] VITALS: PULSE 96; O2SAT 97
== END 2025-06-17 07:42 | disposition home or self-care (01) ==
PROVIDERS: Emergency Provider Student in an Organized Health Care Education/Training Program; PCP Family Medicine
DX: N83.299 Other ovarian cyst, unspecified side (principal); A05.9 Bacterial foodborne intoxication, unspecified; E86.0 Dehydration; Z87.891 Personal history of nicotine dependence
CPT/HCPCS: 74177; 80053; 83690; 83735; 84100; 85025; 86140; 96361; 96374; 96375; 99285; J1885; J2270; J2405; J2765; J3490; J7030

== ENCOUNTER 2025-07-18 23:31 | Emergency (ER) | payer BC, MEDICAID, SELFPAY ==
--- OUTSIDE RECORDS SUMMARY | 2025-07-18 23:35 | XMS_ITS | Continuity of Care Document ---
Author Organization [place] - Wilder Green [facility], LMeghanLTae, [facility] ([facility]) Address [address] [place] [address] Care Team Providers Care Creel Clerk Name Role Phone STEFANY LOPEZ Primary Care Provider [phone] Assessment Encounter Date Assessment Date Assessment LastModified [...] Last Modified Time Details Appointments OFFICE VISIT 10 2025 10:50A M Stefany Lopez MD Not available Not available Not available Lab None recorded . Referral None recorded . Procedures None recorded . Surgeries None recorded . Imaging None recorded . Medication Orders Lexapro 20 mg tablet 2024 025 [facility][id number], [address] [facility], [place], [address], 04/30/2025 13:06:41 Patient TargetsNo targets recorded. Patient Instructions Encounter Date Encounter Id Patient Instructions Last Modified By Organization Details Last Modified Time 04/30/2025 [id number] - Increase Lexapro dose to 20mg as [...] 04/30/2025 13:31:09 Reason for Referral None Reported. Problems Name Problem SNOMED Code Status Onset Date Resolution Date Notes Provider Name and Address Organization Details Recorded Time Chronic headache disorder 910860242 Active 2022 FRANNY malhotra [facility] 19:00:18 Depressiv e disorder 04900525 Active 2022 FRANNY malhotra [facility] 19:00:20 Episodic cluster headache 687971003 Active 2022 FRANNY malhotra [facility] 19:00:22 Low back pain 663843212 Active 2023 FRANNY malhotra [facility] 19:00:25 Pain of left hip joint 012807830645 100 Active 2023 FRANNY malhotra [facility] 19:00:31 Neuropath y 490665013 Active 2024 FRANNY malhotra [facility] 19:00:27 Cervical lymphaden opathy 058206918 Completed 202401/29/2025 KULWANT Flores [facility]CM[facility]han 14:32:54 Acute headache 794286368 Active 2024 KULWANT BARNES roscoe, [facility] 14:32:49 Lesion of endometri 496580579334 [facility] 16:28:46 Mixed anxiety and depressiv e disorder 839062162 Active 2024 FRANNY malhotra, [facility] 18:46:22 Hypothyro idism 38937824 Active 2024 Stefany Lopez MD [address] [place] [address]-[facility], [facility] 16:37:14 Fatigue 48428126 Active 2024 Stefany Lopez MD [address] [place] [address], [facility] 16:37:48 Heartburn 42165351 Active 2024 Stefany Lopez MD [address] [place] [address], [facility] 16:40:23 Problem Notes None recorded. Procedures Surgical History Date Name Laterality Status Provider Name and Address Organization Details Recorded Time 05/15/20 25 dilation and curettage completed KULWANT ASIF [facility] 07/13/2025 16:06:41 01/23/20 24 Joint Inj Kenalog- Shoulder, Hip, Knee completed Stefany Lopez MD [address] [place] [phone], [facility] 01/23/2024 12:15:16 Imaging Results None recorded. Procedure [...] 06/19 completed 0; Recorded 08/28/19 12:16PM by Franny Balderas RN, Office Visit; Not Available Not [...] mg tablet TAKE 1 TABLET BY MOUTH DAILY NEEDED FOR MIGRAINE PAIN active Not Available Not Available No t [...] completed Not Available Not Available Not Available oxycodone -acetamin ophen 5 mg-325 mg tablet TAKE 1 TABLET BY MOUTH EVERY 6 HOURS NEEDED 07/13 completed Not Available Not Available Not Available propranol ol 40 mg tablet TAKE 1 TABLET BY MOUTH TWICE A DAY active Not Available Not Available No t Available gabapenti n 300 mg capsule Take 1 capsule 3 times a day by oral route as needed. 11/20 completed Not Available Not Available Not Available omeprazol e 20 mg capsule,d elayed release Take 1 capsule every day by oral route. 2024 active Not Available Not Available Not Avai lable dexametha sone sodium phosphate 4 mg/mL injection solution Inject 1 mL every day by intramus cular route for 1 day. 01/29 completed Not Available Not Available Not Available ibuprofen 600 mg tablet TAKE 1 TABLET BY MOUTH EVERY 6 HOURS NEEDED 07/13 completed Not Available Not Available Not Available Ativan 0.5 mg tablet PRN 06/19 completed 0; Recorded 08/28/19 12:15PM by Franny Balderas RN, Office Visit; Not Available Not Available Not Available ketorolac 60 mg/2 mL intramusc ular solution Inject 60 mg every day by intramus cular route for 1 day. 01/29 completed Not Available Not Available Not Available propranol ol 20 mg tablet TAKE 1 TABLET BY MOUTH TWICE A DAY NEEDED 01/22 completed Not Available Not Available Not Available ondansetr on 4 mg disintegr ating tablet DISSOLVE 1 TABLET IN MOUTH 3 TIMES A DAY active Not Available Not Available No t Available cefdinir 300 mg capsule TAKE 1 CAPSULE BY MOUTH EVERY 12 HOURS 01/29 completed Not Available Not Available Not Available Xanax 1 mg tablet prn 06/19 completed 0; Recorded 08/28/19 23 12:15PM by Franny Balderas RN, Office Visit; Not Available Not Available Not Available buspirone 15 mg tablet Take 1 tablet twice a day by oral route for 30 days. 02/07 completed Not Available Not Available Not Available oxycodone 5 mg tablet TAKE 1 TABLET BY MOUTH EVERY 8 HOURS NEEDED FOR PAIN 07/13 completed Not Available Not Available Not Available escitalop jaime 10 mg tablet TAKE 1 TABLET BY MOUTH EVERY DAY FOR ANXIETY AND DEPRESSI ON 07/13 completed dose increase d Not Available Not Available Not Available escitalop jaime 20 mg tablet TAKE 1 TABLET BY MOUTH EVERY DAY active Not Available Not Available No t Available topiramat e 50 mg tablet TAKE 1 [...] 06/19 completed 0; Recorded 08/28/19 12:12PM by Franny Balderas, RN, Office Visit; Not Available Not Available Not Available fiber 08/06 completed 0; Recorded 08/28/19 12:12PM by Franny Balderas RN, Office Visit; Not Available Not Available Not Available Cymbalta QD 08/06 completed Recorded 08/28/19 12:44PM by Stefany Lopez MD, Office Visit; Refill Quantity : 30; [...] mass index (BMI) Body weight Oxygen saturation Heart rate Respiratory rate Body temperature Systolic And Diastolic Provider Name and Address Organization Details Last Updated DateTime 160.02 cm 23.2 kg/m2 88064 g 99 % 77 /min 18 /min 98.2 [degF] 122/74 mm[Hg] [facility]ARNES [facility] 12:50:23 Social History Question Answer Notes LastModified by Organizat ion Details LastModified Time Tobacco Smoking Status Never Smoker FRANNY malhotra [facility] LMeghanLTae 02/07/2023 11:56:52 What Was The Date Of Your Most Recent Tobacco Screening? 01/29/2024 Information not available 01/29/2024 Sex: Unknown Functional Status Question Answer Note LastModified by Organizat ion Details LastModified Time Do you use [...] ICD10 Code Diagnosis IMO Codes Diagnosis Note [id number] Stefany Lopez MD [facility] ([facility]) [address] [place] [address] 04/30/2025 11:34:48 04/30/2025 13:40:39 Mixed anxiety and depressive disorder 380882237 F41.8 - Increase Lexapro to 20mg; follow-up in a couple of months for evaluation . Lesion of endometrium 92 30701860 9101 N94.89 [id number] - Scheduled for tubal removal and D&C on 05/15/2025 . Health Concerns Section Related Observation LastModified by Organization Detai ls LastModified Time None Recorded Concern Status LastModified by Organization Details LastModified Time None Recorded Payers Encounter Date Sequence Insurance Name Policy Number Policy Weinstein Covered Member ID Weinstein Member ID Guarantor Name 04/30/2025 1 [employer] [place] (MEDICAID REPLACEMENT - HMO) [id number] Violetta Manzanares [id number] Violetta Manzanares Notes Date Note Type Note Provider Name and Address Organization Details Recorded Time 04/30/2025 text/html The patient is a 35-year-old female presenting with pre-operative evaluation and medication management. Mixed Anxiety and Depressive Disorder: - Reports increased dizziness, notably during visits accompanying her grandmother, and inquired about increasing Lexapro dosage. Lesion of Endometrium: - Scheduled for tubal removal and D&C on 05/15/2025 to manage lesion. PT has an appt in [place] on 05/15/25 for a surgery to remove [...] her grandma to get her flu. Stefany Lopez MD [address] [place] [address], [phone], [facility] [place] [facility] 04/30/2025 13:31:22 OBGyn Episode No OBEpisode recorded.
--- OUTSIDE RECORDS SUMMARY | 2025-07-18 23:35 | XMS_ITS | Continuity of Care Document ---
Author Organization MARIE Green [facility], L.LMeghanCMeghan, [facility] ([facility]) Address [address] [place] [address] Care Team Providers Care Field Contact Person Name Role Phone STEFANY LOPEZ Primary Care Provider Assessment Encounter Date Assessment Date Assessment LastModified by Organization Details LastModified Time 07/13/2025 07/13/2025 - A 35-year-old female with a history of ruptured ovarian cyst and controlled anxiety/depressi on presents with recurrent episodes of hot flashes, dizziness, nausea, and pruritus. - The patient's symptoms are non-specific and do not clearly point to a single diagnosis. - Although she had a confirmed ovarian cyst rupture on June 15, the subsequent three episodes are less likely to be caused by the same cyst. - The diffuse abdominal pain is a vague symptom that is often difficult to diagnose precisely. - The symptoms are not typical for an allergic reaction as she does not experience hives. - While anxiety can exacerbate physical symptoms, her psychiatric condition is reportedly under control, making it a less likely primary cause. - The patient's heartburn is likely exacerbated by her eating habits, specifically eating only at night before bed. Diffuse Abdominal Pain With Systemic Symptoms: - The current clinical picture is unclear and the symptoms have not fully declared themselves. - Will order lab work, including a CBC to recheck the white blood cell count, a CMP, and a thyroid panel. - A watchful waiting approach is recommended to see if the symptoms fade or evolve into a more recognizable pattern. - At present, referrals to DIRECTOR OF CONVENTION SERVICES or Allergy are not indicated as there is little for them to act on based on current symptoms. - Plan to follow up in a few months to reassess the status of her symptoms, unless they change significantly sooner. [email or web address] Not available 07/13/2025 16:43:55 Plan of Treatment Reminders Order Date Submit Date Provider Last Modified By Organization Details Last Modified Time Details Appointments OFFICE VISIT 10 2025 10:50A M Stefany Lopez MD Not available Not available Not available Lab CBC 2024 025 [facility], [address], [place], [address], 07/15/2025 09:23:35 TSH, serum or plasma 2024 025 [facility], [address], [address], [place], [address], 07/15/2025 12:43:11 CMP, serum or plasma 2024 025 [facility], [address], [place], [address], 07/14/2025 16:39:03 Referral None recorded. Procedures None recorded. Surgeries None recorded. Imaging None recorded. Medication Orders omeprazol e 20 mg capsule,d elayed release 2024 [facility]/Pharmacy #[id number], [address], [address], [place], [address], 07/13/2025 16:42:46 Patient TargetsNo targets recorded. Patient Instructions Encounter Date Encounter Id Patient Instructions Last Modified By Organization Details Last Modified Time 07/13/2025 [id number] - Go to the lab to have your blood drawn for the ordered tests, which include checking your white blood cell count, kidney and liver function, and thyroid levels. - Start taking omeprazole once a day for your heartburn. - For best results, try to take the omeprazole before a meal. However, the most important thing is to take it every day, so you can take it at bedtime if that works better for your schedule, as long as you are not eating right before you go to bed. - Schedule a follow-up appointment at the patient coordinator front desk for a few months from now to see how your symptoms are progressing. - If your symptoms change a lot or get much worse before your next appointment, please come back to be seen sooner. [email or web address] Not available 07/13/2025 16:43:57 Reason for Referral None Reported. Problems Name Problem SNOMED Code Status Onset Date Resolution Date Notes Provider Name and Address Organization Details Recorded Time Chronic headache disorder 354269740 Active 2022 FRANNY malhotra [facility] 19:00:18 Depressiv e disorder 65028554 Active 2022 FRANNY malhotra [facility] 19:00:20 Episodic cluster headache 929300292 Active 2022 FRANNY malhotra [facility] L.L.CMgehan 19:00:22 Low back pain 303671067 Active 2023 FRANNY malhotra [facility] 19:00:25 Pain of left hip joint 191276683300 100 Active 2023 FRANNY malhotra [facility] 19:00:31 Neuropath y 726352497 Active 2024 FRANNY malhotra [facility] 19:00:27 Cervical lymphaden opathy 210501624 Completed 202401/29/2025 KULWANT NEUKADEN Flores [facility] 14:32:54 Acute headache 560995785 Active 2024 KULWANT NEUSCHWATracey Flores [facility] 14:32:49 Lesion of endometri um 242690707361 01 Active 2024 FRANNY malhotra [facility] 16:28:46 Mixed anxiety and depressiv e disorder 871923601 Active 2024 FRANNY malhotra, [facility] 18:46:22 Hypothyro idism 69700248 Active 2024 Stefany Lopez MD [address] [place] [address], [facility] 16:37:14 Fatigue 49537723 Active 2024 Stefany Lopez MD [address] [place] [address], [phone], [facility] 16:37:48 Heartburn 61721349 Active 2024 Stefany Lopez MD [address] [place] [address], [phone], [facility] 16:40:23 Problem Notes None recorded. Procedures Surgical History Date Name Laterality Status Provider Name and Address Organization Details Recorded Time 05/15/20 25 dilation and curettage completed KULWANT ASIF [facility] 07/13/2025 16:06:41 01/23/20 24 Joint Inj Kenalog- Shoulder, Hip, Knee completed Stefany Lopez MD [address] [place] [address], [phone], [facility] 01/23/2024 12:15:16 Imaging Results None recorded. [...] Organization Details Last Updated DateTime 160.02 cm 24 kg/m2 27877.3 7 g 97 % 74 /min 18 /min 98.9 [degF] 110/62 mm[Hg] KULWANT BARNES [facility] 16:15:27 Social History Question Answer Notes LastModified by Organizat ion Details LastModified Time Tobacco Smoking Status Never Smoker FRANNY malhotra [facility] 02/07/2023 11:56:52 What Was The [...] ICD10 Code Diagnosis IMO Codes Diagnosis Note [id number] Stefany Lopez MD [facility] ([facility]) [address] [place] [address] 07/13/2025 15:51:10 07/14/2025 09:39:58 Mixed anxiety and depressive disorder 626562131 F41.8 Nausea 140788963 R11.0 88677 Flushing 850225746 R23.2 813265 Dizziness 669484487 R42 41729 Fatigue 00378719 R53.82 080659 Heartburn 03150969 R12 56303 - Will prescribe omeprazole once daily to manage heartburn. - Advised the patient that the best time to take omeprazole is before a meal, but emphasized that consistent daily use is most important. - The patient may take it with her other medication before bed if it improves adherence, as long as she is not eating right before sleeping. Health Concerns Section Related Observation LastModified by Organization Detai ls LastModified Time None Recorded Concern Status LastModified by Organization Details LastModified Time None Recorded Payers Encounter Date Sequence Insurance Name Policy Number Policy Weinstein Covered Member ID Weinstein Member ID Guarantor Name 07/13/2025 1 [employer] [place] (MEDICAID REPLACEMENT - HMO) [id number] Violetta Manzanares [id number] Violetta Manzanares Notes Date Note Type Note Provider Name and Address Organization Details Recorded Time 07/13/2025 text/html Pt states the current medication is controlling her anxiety.Pt states she went to ER on 06/17/25 and had a cyst rupture, Pt states she has had 3 episodes since 06/17/25 where she will get itchy all over like she is having a allergic reaction, she will have heartburn,hot flashes,dizziness, will get nauseated and have to make herself vomit. Each episode lasts at least 5 hours. The patient is a 35 year old female presenting for evaluation of recurrent episodes of hot sweats, dizziness, inability to stand up straight, nausea, and itching, following a recent emergency room visit for a ruptured ovarian cyst. Ruptured ovarian cyst: - The patient has a history of episodes involving ruptured ovarian cysts and presented to the ER on June 15 due to severe pain. - In the ER, she was initially given Pepcid, which was ineffective, and then morphine, which helped with the pain. - A CT scan confirmed a ruptured ovarian cyst, which was noted to be small and expected to resolve on its own. - The patient reports having experienced three similar but less severe episodes since her ER visit, which she managed at home with Benadryl. - Her family history is significant for ovarian cysts in her grandmother and sister, both of whom have had partial hysterectomies, and her mother had a full hysterectomy. Abdominal pain with systemic symptoms: - The patient reports recurrent episodes associated with hot flashes, dizziness, nausea, and generalized pruritus without hives, which can start in her head and move down to her tongue. - These episodes are accompanied by diffuse, burning abdominal pain that feels like it is all over rather than localized. - The onset can be sudden and severe, as with the episode that led to her ER visit, or can be more gradual and cardiology technician. - The burning sensation can last for about five hours, and she has tried Benadryl and famotidine for relief. - She has not identified any specific food triggers despite eating a consistent diet. Heartburn: - The patient experiences heartburn along with her other symptoms. - She notes feeling the heartburn during the current visit. - The patient reports a habit of not eating all day and then eating at night before going to bed. Mixed anxiety and depressive disorder: - The patient's anxiety and depression are considered to be currently controlled. - Labs: White blood cell count was elevated during the emergency room visit. - Imaging: A CT scan of the abdomen and pelvis with and without contrast, performed at the ER, showed a physiological ovarian cyst that appeared to have ruptured. Stefany Lopez MD [address] [place] [address], [phone], [facility] [place] [facility] 07/13/2025 21:39:34 OBGyn Episode No OBEpisode recorded.
--- OUTSIDE RECORDS SUMMARY | 2025-07-18 23:35 | XMS_ITS | Data Portability ---
Author Organization MARIE [facility], [facility] Address [address] [address] Care Team Providers Care Authorization Representative Name Role Phone STEFANY HURTADO Primary Care [...] surgical intervention. [email or web address] Not available 04/30/2025 13:07:16 07/13/2025 07/13/2025 - A 35-year-old female with [...] recognizable pattern. - At present, referrals to [facility] or Allergy are not indicated as there [...] OFFICE VISIT 10 2025 10:50A M Stefany Hurtado MD Not available Not available Not available Lab CBC 2024 025 [facility], [address] [facility], [address], [address], 07/15/2025 09:23:35 TSH, serum or plasma 2024 025 [facility], [address], [address], 07/15/2025 12:43:11 CMP, serum or plasma 2024 025 [facility], [address], [address], 07/14/2025 16:39:03 CT + NG + TV, DNA, urine/ swab 2024 025 [employer] ([facility]), [address] [place], [address], 01/29/2025 17:32:47 pap, IG + reflex HPV mRNA E6/E7 2024 025 [employer] [facility], [address] [facility] [address], [address] [place], [address], 02/03/2025 17:40:42 CBC 2024 025 [facility], [address], [address], [place], [address], 01/29/2025 16:05:17 CMP, serum or plasma 2024 025 [facility], [address], [address], [place], [address], 01/29/2025 16:13:02 thyrot ropin, QN, serum or plasma 2024 025 [facility], [address], [address], [place], [address], 01/29/2025 16:16:23 urinal ysis, comple te 2024 025 [facility], [address], [address], [place], [address], 01/29/2025 16:13:05 Referral None record ed. Procedures None record ed. Surgeries None record ed. Imaging US, pelvis , comple te - [id number] & [id number] transv aginal 2024 025 [facility], [address], [place], [address], 02/25/2025 09:27:06 Medication Orders omepra zole 20 mg capsul e,lawrence yetonio releas e 2024 025 [facility] #[id number], [address], [address], [place], [address], 07/13/2025 16:42:46 Lexapr o 20 mg tablet 2024 025 [facility] #[id number], [address], [address], [place], [address], 04/30/2025 13:06:41 ketoro lac 60 mg/2 mL intram uscula r soluti on 2024 025 [email or web address] Not available 01/29/2025 14:31:19 dexame thason e sodium phosph ate 4 mg/mL inject ion soluti on 2024 025 [email or web address] Not available 01/29/2025 14:30:19 Patient TargetsNo targets recorded. Patient Instructions Encounter Date Encounter Id Patient Instructions Last Modified By Organization Details Last Modified Time 04/30/2025 [id number] - Increase Lexapro dose to 20mg as [...] and tolerance. [email or web address] Not available 04/30/2025 13:31:09 07/13/2025 [id number] - Go to the lab to have [...] - Schedule a follow-up appointment at the front office attendant for a few months from now to see how your symptoms are progressing. - If your symptoms change a lot or get much worse before your next appointment, please come back to be seen sooner. [email or web address] Not available 07/13/2025 16:43:57 Reason for Referral None Reported. Results Created Date Observation Date Name Description Value Unit Range Abnormal Flag Note LastModifiedBy Organization Detail LastModifiedTime 01/30/20 25 01/29/2025 CBC WBC 7.1 x10 4.0-10 .5 Not Available [facility] [address], [place], [address], 01/29/2025 16:05:17 01/30/2001/29/2025 CBC RBC 4.91 x10 3.50-5 .50 Not Available [facility] [address], [place], [address], 01/29/2025 16:05:17 01/30/2001/29/2025 CBC HGB 14.1 g/dL 12.0-1 6.0 Not Available [facility] [address] [facility] [address], [place], [address], 01/29/2025 16:05:17 01/30/2001/29/2025 CBC HCT 43.0 % 37.0-4 7.0 Not Available [facility] [address] [facility] 1, [place], [address], 01/29/2025 16:05:17 01/30/20 25 01/29/2025 CBC MCV 87.6 fL 80.0-9 9.9 Not Available [facility] [address], [place], [address], 01/29/2025 16:05:17 01/30/2001/29/2025 CBC MCH 28.7 pg 27.0-3 2.0 Not Available [facility] [address] [facility] [address], [place], [address], 01/29/2025 16:05:17 01/30/2001/29/2025 CBC MCHC 32.7 g/dL 32.0-3 6.0 Not Available [facility] [address] [facility] [address] [facility] 1, [place], [address], 01/29/2025 16:05:17 01/30/20 25 01/29/2025 CBC RDW 14.1 % 11.5-1 4.5 Not Available [facility] [address] [facility] 1, [place], [address], 01/29/2025 16:05:17 01/30/20 25 01/29/2025 CBC plt 279.8 x10 140.0- 451.0 Not Available [facility] [address] [facility] [address] [facility], [place], [address], 01/29/2025 16:05:17 01/30/2001/29/2025 CBC lymphocytes % 27.8 % 20.0-5 0.0 Not Available [facility] [address] [facility] 1, [place], [address], 01/29/2025 16:05:17 01/30/20 25 01/29/2025 CBC granulcytes % 60.8 % 30.0-7 0.0 Not Available [facility] [address] [facility] [address] [facility] 1, [place], [address], 01/29/2025 16:05:17 01/30/20 25 01/29/2025 CBC monocytes % 7.1 % 2.0-16 .0 Not Available [facility] [address] [facility] 1, [place], [address], 01/29/2025 16:05:17 01/30/20 25 01/29/2025 CBC granulcytes# 4.3 x10 Not Marcy ilable [facility] [address] [facility] [address] [facility] 1, [place], [address], 01/29/2025 16:05:17 01/30/20 25 01/29/2025 CBC lymphocytes # 2.0 x10 Not Available [facility] [address] [facility] [facility] 1, [place], [address], 01/29/2025 16:05:17 01/30/20 25 01/29/2025 CBC monocytes # 0.5 x10 Not Avai lable [facility] [address] [facility], [place], [address], 01/29/2025 16:05:17 01/30/20 25 01/29/2025 CMP (FEMA LE) glucose 92.0 mg/dL 60.0-9 9.0 Not Available [facility] [address]05 [facility] 1, [place], [address], 01/29/2025 16:13:02 01/30/20 25 01/29/2025 CMP (FEMA LE) BUN (blood urea nitrogen) 14.0 mg/dL 10.0-2 6.0 Not Available [facility] [address] [facility] 1, [place], [address], 01/29/2025 16:13:02 01/30/20 25 01/29/2025 CMP (FEMA LE) creatinine (serum) 0.6 mg/dL 0.4-1. 5 Not Available [facility] [address] [facility] 1, [place], [address], 01/29/2025 16:13:02 01/30/20 25 01/29/2025 CMP (FEMA LE) BUN/creatini ne ratio 23.33 ratio Not Available [facility] [address] [facility] 1, [place], [address], 01/29/2025 16:13:02 01/30/20 25 01/29/2025 CMP (FEMA LE) eGFR calculated 120.9 Not Available [facility] [address] [facility], [place], [address], 01/29/2025 16:13:02 01/30/20 25 01/29/2025 CMP (FEMA LE) total protein 7.4 g/dL 6.0-8. 5 Not Available [facility] [address] [facility], [place], [address], 01/29/2025 16:13:02 01/30/20 25 01/29/2025 CMP (FEMA LE) total bilirubin 0.9 mg/dL 0.2-1. 3 Not Available [facility] [address] [facility], [place], [address], 01/29/2025 16:13:02 01/30/20 25 01/29/2025 CMP (FEMA LE) albumin 4.5 g/dL 3.5-5. 5 Not Available [facility] [address] [facility] 1, [place], [address], 01/29/2025 16:13:02 01/30/20 25 01/29/2025 CMP (FEMA LE) globulin 2.9 calc Not Available [facility] [address] [facility], [place], [address], 01/29/2025 16:13:02 01/30/20 25 01/29/2025 CMP (FEMA LE) AST (SGOT) 30.0 U/L 0.0-46 .0 Not Available [facility] [address] [facility], [place], [address], 01/29/2025 16:13:02 01/30/20 25 01/29/2025 CMP (FEMA LE) altv (SGPT) 35.0 U/L 13.0-6 9.0 normal Not Available [facility] [address] [facility] 1, [place], [address], 01/29/2025 16:13:02 01/30/20 25 01/29/2025 CMP (FEMA LE) A/G ratio 1.6 ratio Not Available [facility] [address] [facility] [facility], [place], [address], 01/29/2025 16:13:02 01/30/20 25 01/29/2025 CMP (FEMA LE) ALP phos 56.0 U/L 30.0-1 40.0 normal Not Available [facility] [address] [facility], [place], [address], 01/29/2025 16:13:02 01/30/20 25 01/29/2025 CMP (FEMA LE) calcium 9.1 mg/dL 8.4-10 .5 Not Available [facility] [address] [facility], [place], [address], 01/29/2025 16:13:02 01/30/20 25 01/29/2025 CMP (FEMA LE) sodium 138.0 mmol/ L 136.0- 145.0 Not Available [facility] [address] [facility], [place], [address], 01/29/2025 16:13:02 01/30/20 25 01/29/2025 CMP (FEMA LE) potassium 3.8 mmol/ L 3.5-5. 1 Not Available [facility] [address] [facility] [facility] 1, [place], [address], 01/29/2025 16:13:02 01/30/20 25 01/29/2025 CMP (FEMA LE) chloride 103.0 mmol/ L 98.0-1 10.0 normal Not Available [facility] [address] [facility], [place], [address], 01/29/2025 16:13:02 01/30/20 25 01/29/2025 CMP (FEMA LE) C02 28.0 mmol/ L 22.0-3 1.0 Not Available [facility] [address] [facility] [facility], [place], [address], 01/29/2025 16:13:02 01/30/20 25 01/29/2025 CMP (FEMA LE) anion gap 7.0 calc Not Available [facility] [address] [facility] [address], [place], [address], 01/29/2025 16:13:02 01/30/20 25 01/29/2025 CMP (FEMA LE) osmolality 285.3 calc Not Available [facility] [address] [facility] [address], [place], [address], 01/29/2025 16:13:02 01/30/20 25 01/29/2025 URINA LYSIS WITH MICRO color YELLOW Not Available [facility] [address] [facility], [place], [address], 01/29/2025 16:13:05 01/30/20 25 01/29/2025 URINA LYSIS WITH MICRO clarity CLEAR Not Available [facility] [address], [place], [address], 01/29/2025 16:13:05 01/30/20 25 01/29/2025 URINA LYSIS WITH MICRO glu NEGATI VE Not Available [facility] [address] [facility] [address], [place], [address], 01/29/2025 16:13:05 01/30/20 25 01/29/2025 URINA LYSIS WITH MICRO bili NEGATI VE Not Available [facility] [address], [place], [address], 01/29/2025 16:13:05 01/30/20 25 01/29/2025 URINA LYSIS WITH MICRO ket NEGATI VE Not Available [facility] [address] [facility] [address], [place], [address], 01/29/2025 16:13:01/30/20 25 01/29/2025 URINA LYSIS WITH MICRO S.g 1.025 1.005- 1.025 Not Available [facility] [address], [place], [address], 01/29/2025 16:13:01/30/20 25 01/29/2025 URINA LYSIS WITH MICRO pH 6.5 5.0-7. 0 Not Available [facility] [address], [place], [address], 01/29/2025 16:13:01/30/20 25 01/29/2025 URINA LYSIS WITH MICRO pro NEGATI VE Not Available [facility] [address], [place], [address], 01/29/2025 16:13:01/30/20 25 01/29/2025 URINA LYSIS WITH MICRO uro 0.2 E.U./D L Not Available [facility] [address], [place], [address], 01/29/2025 16:13:01/30/20 25 01/29/2025 URINA LYSIS WITH MICRO nit NEGATI VE Not Available [facility] [address], [place], [address], 01/29/2025 16:13:01/30/20 25 01/29/2025 URINA LYSIS WITH MICRO blo NEGATI VE Not Available [facility] [address], [place], [address], 01/29/2025 16:13:01/30/20 25 01/29/2025 URINA LYSIS WITH MICRO kayy NEGATI VE Not Available [facility] [address], [place], [address], 01/29/2025 16:13:05 01/30/20 25 01/29/2025 URINA LYSIS WITH MICRO WBC 3-4 abnormal Not Available [facility] [address] [facility] 1, [place], [address], 01/29/2025 16:13:05 01/30/20 25 01/29/2025 URINA LYSIS WITH MICRO RBC 1-2 abnormal Not Available [facility] [address] [facility] 1, [place], [address], 01/29/2025 16:13:05 01/30/20 25 01/29/2025 URINA LYSIS WITH MICRO epi cells 4-6 abnormal Not Available [facility] [address] [facility], [place], [address], 01/29/2025 16:13:05 01/30/20 25 01/29/2025 URINA LYSIS WITH MICRO bacteria TRACE OF MIXED GIOVANNI abnormal Not Available [facility] [address] [facility] 1, [place], [address], 01/29/2025 16:13:05 01/30/20 25 01/29/2025 URINA LYSIS WITH MICRO other NEG Not Available [facility] [address] [facility] 1, [place], [address], 01/29/2025 16:13:05 01/30/20 25 01/29/2025 TSH TSH 0.50 uIU/m L 0.49-3 .82 Not Available [facility] [address] [facility] 1, [place], [address], 01/29/2025 16:16:23 01/30/20 25 02/03/2025 THINP REP TIS PAP (REFL ) HPV MRNA E6/E7 clinical information: normal Stefanie l exam Not Available [facility] [address] [place], [address], 02/03/2025 17:40:42 01/30/20 25 02/03/2025 THINP REP TIS PAP (REFL ) HPV MRNA E6/E7 LMP: normal NONE GIVEN Not Available [address], [address], 02/03/2025 17:40:42 01/30/20 25 02/03/2025 THINP REP TIS PAP (REFL ) HPV MRNA E6/E7 prev. Pap: normal NONE GIVEN Not Available [address] [place], [address], 02/03/2025 17:40:42 01/30/20 25 02/03/2025 THINP REP TIS PAP (REFL ) HPV MRNA E6/E7 prev. BX: normal NONE GIVEN Not Available [address], [address], 02/03/2025 17:40:42 01/30/20 25 02/03/2025 THINP REP TIS PAP (REFL ) HPV MRNA E6/E7 source: normal Cervi x, Endoc ervix Not Available [address], [address], 02/03/2025 17:40:42 01/30/20 25 02/03/2025 THINP REP TIS PAP (REFL ) HPV MRNA E6/E7 statement of adequacy: Speci men proce ssed and exami taylor, but unsat isfac tory for evalu ation due to an insuf ficie nt numbe r of squam ous cells . Age and/o r menst rual statu s not provi ded Not Available [address] [place], [address], 02/03/2025 17:40:42 01/30/20 25 02/03/2025 THINP REP TIS PAP (REFL ) HPV MRNA E6/E7 interpretati on/result: Cytol ogy Resul ts: Unabl e to provi de inter preta tion due to unsat isfac tory speci men adequ acy. Not Available [address] [address] [place], [address], 02/03/2025 17:40:42 01/30/20 25 02/03/2025 THINP REP TIS PAP (REFL ) HPV MRNA E6/E7 comment: normal This case could not be evalu ated with compu ter billy carol techn ology . The slide was kenan lugo taylor accor jerson to robi ne chris perea . Sugge st clini jossue corre latio n and follo w-up as clini vickie appro priat e Micro scopi c featu res prese nt sugge stive of an inter ferin g subst ance, inclu ding cellu lar debri s, mucus , or possi ble lubri cant (gisel ent or provi jamila use). Use of lubri cant is not recom elsy d. Not Available [facility] [address] [address] [place], [address], 02/03/2025 17:40:42 01/30/20 25 02/03/2025 THINP REP TIS PAP (REFL ) HPV MRNA E6/E7 cytotechnolo gist: normal AAM, CT( CP) CT Scree maxine Locat ion: [facility], [address] [facility] [place] [address] CLIA: [id number] Slide prepa ratio n perfo rmed at: [facility], [address] [facility] [place] [address] CLIA: [id number] Not Available [facility] [address] [place], [address], 02/03/2025 17:40:42 01/30/2002/03/2025 THINP REP TIS PAP (REFL ) HPV MRNA E6/E7 review cytotechnolo gist: normal AVN, CT( CP CT Scree maxine Locat ion: [facility], [address] [facility] [place] [address] CLIA: [id number] Slide prepa ratio n perfo rmed at: [facility], [address] [facility] [place] [address] CLIA: [id number] Not Available [facility] [address] [place], [address], 02/03/2025 17:40:42 01/30/20 25 02/03/2025 THINP REP TIS PAP (REFL ) HPV MRNA E6/E7 comment EXPLA NATOR Y NOTE: The Pap is a scree maxine [...] clini jossue infor matio n. Not Available [address] [address] [place], [address], 02/03/2025 17:40:42 01/30/20 25 01/29/2025 CT + NG + TV, DNA, urine /swab Chlamydia negati ve Not Available [facility] ([facility]) [address] [place] [address], [address], 01/29/2025 15:26:59 01/30/20 25 01/29/2025 CT + NG + TV, DNA, urine /swab Gonorrhea negati ve Not Available [facility] ([facility]) [address] [place], [address], 01/29/2025 15:26:59 01/30/20 25 01/29/2025 CT + NG + TV, DNA, urine /swab Trichomonas negati ve Not Available [facility] ([facility]) [address] [place] [address], [address], 01/29/2025 15:26:59 02/26/20 25 02/24/2025 US, pelvi s, compl ete No observ ation record ed. [facility] [address] [place], [address], 03/19/2025 16:31:12 Result Notes None recorded. Problems Name Problem SNOMED Code Status Onset Date Resolution Date Notes Provider Name and Address Organization Details Recorded Time Chronic headache disorder 851878399 Active 2022 PAPA malhotra [facility] 19:00:18 Depressiv e disorder 67035438 Active 2022 PAPA malhotra [facility] 19:00:20 Episodic cluster headache 146279419 Active 2022 PAPA malhotra [facility] 19:00:22 Low back pain 412468825 Active 2023 PAPA malhotra [facility] 19:00:25 Pain of left hip joint 291193322057 100 Active 2023 PAPA malhotra [facility] 19:00:31 Neuropath y 577837130 Active 2024 PAPA malhotra [facility] 19:00:27 Cervical lymphaden opathy 666278536 Completed 202401/29/2025 KULWANT Flores [facility] 14:32:54 Acute headache 932909185 Active 2024 KULWANT Flores [facility] 14:32:49 Lesion of endometri um 703696113980 01 Active 2024 [facility]IA [facility] 16:28:46 Mixed anxiety and depressiv e disorder 103842098 Active 2024 PAPA BALDERAS [facility] 18:46:22 Hypothyro idism 87921179 Active 2024 Stefany Hurtado MD [address] [place] [address], [facility] 16:37:14 Fatigue 68963466 Active 2024 Stefany Hurtado MD [address] [place] [address], [facility] 16:37:48 Heartburn 33488930 Active 2024 Stefany Hurtado MD [address] [place] [address], [facility] 16:40:23 Problem Notes None recorded. Procedures Surgical History Date Name Laterality Status Provider Name and Address Organization Details Recorded Time 05/15/20 25 dilation and curettage completed KULWANT ASIF [facility] 07/13/2025 16:06:41 01/23/20 24 Joint Inj Kenalog- Shoulder, Hip, Knee completed Stefany Hurtado MD [address] [place] [address], [phone], [facility] 01/23/2024 12:15:16 Imaging Results None recorded. [...] 0; Recorded 08/28/19 23 12:15PM by Papa Balderas RN, Office Visit; Not [...] 0; Recorded 08/28/19 23 12:15PM by Papa Balderas RN, Office Visit; Not [...] completed 0; Recorded 08/28/19 12:12PM by Papa Balderas, RN, Office Visit; Not [...] Updated DateTime 11/21/2024 160.02 cm 22.5 kg/m2 91668.2 3 g 98.9 [degF] 115/58 mm[Hg] Estrella Infante [facility] 5 14:53:33 Date Recorded Body height Body mass index (BMI) Body weight Oxygen saturation Heart rate Respiratory rate Body temperature Systolic And Diastolic Provider Name and Address Organization Details Last Updated DateTime 160.02 cm 22.9 kg/m2 04252.5 2 g 98 % 100 /min 18 /min 98.4 [degF] 118/62 mm[Hg] KULWANT BARNES [facility] 5 14:47:16 Date Recorded Body height Body mass index (BMI) Body weight Oxygen saturation Heart rate Respiratory rate Body temperature Systolic And Diastolic Provider Name and Address Organization Details Last Updated DateTime 5 160.02 cm 23.2 kg/m2 89699 g 99 % 77 /min 18 /min 98.2 [degF] 122/74 mm[Hg] KULWANT BELTRANFLTracey [facility] 5 12:50:23 Date Recorded Body height Body mass index (BMI) Body weight Oxygen saturation Heart rate Respiratory rate Body temperature Systolic And Diastolic Provider Name and Address Organization Details Last Updated DateTime 5 160.02 cm 24 kg/m2 56578.3 7 g 97 % 74 /min 18 /min 98.9 [degF] 110/62 mm[Hg] KULWANT HARRIS [facility] 5 16:15:27 Social History Question Answer Notes LastModified by [employer] Details LastModified Time Tobacco Smoking Status Never Smoker [facility] 02/07/2023 11:56:52 What Was The Date Of Your Most Recent Tobacco Screening? 01/29/2024 Information not available 01/29/2024 Sex: Unknown Functional Status Question Answer Note LastModified by [employer] Details LastModified Time Do you use any [...] Codes Diagnosis Note [id number] Stefany Hurtado MD [facility] ([facility]) [address] [place] [phone] 10/17/2022 12:41:50 10/23/2022 17:23:19 Depressive disorder 99893853 F32.9 Mixed anxi ety and depressive disorder 632378256 F41.8 [id number] Stefany Hurtado MD [facility] ([facility]) [address] [place] [phone] 02/07/2023 10:39:11 02/19/2023 15:06:02 Depressive disorder 16118504 F32.9 Chronic he adache disorder 290869942 G44.89 [id number] ALBERT PRESSLEY [facility] ([facility]) [address] [place] [phone] 04/25/2023 17:32:13 04/25/2023 18:42:47 Pain in right lower limb 323910112 M79.604 Discussed with patient that I do believe this is muscular in nature. Encouraged to participat e in daily stretches and use Meloxicam daily for 1 week. No evidence of trauma or injury. Recommend a massage. If pain is still present in 7 days, should follow up with PCP. Patient is agreeable to plan of care. [id number] Heath Nova MD [facility] ([facility]) [address] [place] [phone] 06/19/2023 12:10:47 06/19/2023 13:56:41 Episodic cluster headache 069470919 G44.687 [id number] Stefany Hurtado MD [facility] ([facility]) [address] [place] [phone] 08/06/2023 09:26:59 08/06/2023 11:45:07 Depressive disorder 74824882 F32.9 Chronic he adache disorder 707215782 G44.89 Episodic c luster headache 281913729 G44.019 Migraine 29527061 G43.90 9 [id number] Stefany Hurtado MD [facility] ([facility]) [address] [place] [phone] 10/19/2023 11:34:46 10/19/2023 13:48:09 Mixed anxiety and depressive disorder 079913128 F41.8 Migraine 53327448 G43.90 9 Pain in limb 01909573 M7 9.120 [id number] Stefany Hurtado MD [facility] ([facility]) [address] [place] [address] [phone] 01/23/2024 11:46:43 01/23/2024 14:19:13 Depressive disorder [id number] F32.9 Pain of le ft hip joint [id number] 35846 M25.552 Pain of le ft shoulder joint [id number] 5629266 M25.512 Sterilizat ion requested [id number] Z30.2 Trochanter ic bursitis of left hip [id number] 67000 M70.62 [id number] [facility]KAN[facility] ROBERT[facility] ([facility]) [address] [place] [address] [phone] 01/29/2024 12:12:32 01/29/2024 13:04:34 Low back pain [id number] M54.50 Discussed to take 400mg ibuprofen twice a day for next 5 days with food.Use tizanidine as prescribed .Apply a heating pad for 10 minutes every 2 hours while awake. Perform slow stretches 2 times a day.F/u with PCP in 4-5 days if symptoms persist or worsen. [id number] Stefany Hurtado MD [facility] ([facility]) [address] [place], [place] [phone] 05/01/2024 13:40:07 05/01/2024 14:52:43 Low back pain [id number] M54.50 Pain of le ft hip joint [id number] 03448 M25.552 Left side sciatica 29419 45518 86276 M54.32 [id number] Stefany Hurtado MD [facility] ([facility]) [address] [place], [place] [phone] 08/05/2024 13:19:50 08/05/2024 15:32:42 Low back pain [id number] M54.50 Pain of le ft hip joint [id number] 41338 M25.552 Depressive disorder 3548 9007 F32.9 Cough 42912269 R05.9 Neuropathy 279835658 G62 .9 [id number] Stefany Hurtado MD [facility] ([facility]) [address] [place], [place] [phone] 10/21/2024 10:47:52 10/21/2024 11:50:32 Neuropathy [id number] G62.9 Pain of le ft hip joint [id number] 15489 M25.430 [id number] Eriberto Hill MD [facility] ([facility]) [address] [place] [phone] 11/20/2024 10:45:44 11/26/2024 06:46:51 Cervical lymphadenopathy 095301509 R59.0 732301 Unsure of the cause of this, but the Lymphadnop ahty is c/w reactive lymph nodes. Acute headache 619751622 R51.9 [id number] Patient responds well to ketorolac for her chronic headaches. [id number] SRIKANTH [facility] ([facility]) [address] [place] [phone] 11/21/2024 14:48:07 11/21/2024 16:21:39 Cervical lymphadenopathy [id number] R59.0 690264 Continue cefdinir as ordered at previous visit. Acute headache 017987648 R51.9 [id number] Patient encouraged to rest. May continue to take Tylenol and ibu as needed for pain. Patient may need to present to ER for further evaluation and treatment if pain does not subside. Agrees to plan. [id number] Stefany Hurtado MD [facility] ([facility]) [address] [place] [phone] 01/29/2025 14:24:26 01/29/2025 15:47:48 Fatigue 14795821 R53.82 183475 Vaginal bleeding 5781912 06 N93.9 72670 [id number] Stefany Hurtado MD [facility] ([facility]) [address] [place] [phone] 5 02/24/2025 08:51:05 02/25/2025 09:39:22 [id number] Stefany Hurtado MD [facility] ([facility]) [address] [place] [phone] 04/30/2025 11:34:48 04/30/2025 13:40:39 Mixed anxiety and depressive disorder [id number] F41.8 - Increase Lexapro to 20mg; follow-up in a couple of months for evaluation . Lesion of endometrium 92 78272357 9101 N94.89 [id number] - Scheduled for tubal removal and D&C on 05/15/2025 . [id number] Stefany Hurtado MD [facility] ([facility]) [address] [place] [phone] 07/13/2025 15:51:10 07/14/2025 09:39:58 Mixed anxiety and depressive disorder 033336489 F41.8 Nausea 932422019 R11.0 33943 Flushing 359251572 R23.2 344863 Dizziness 127241340 R42 52094 Fatigue 22841988 R53.82 047625 Heartburn 86527149 R12 10187 - Will prescribe omeprazole once daily to [...] Member ID Weinstein Member ID Guarantor Name 07/10/2025 1 [employer] [place] (MEDICAID REPLACEMENT - HMO) [id number] Violetta Manzanares [id number] Violetta Manzanares 07/11/2025 [place]ICAID[place]: [facility] (INSTITUTIONAL ) [id number] Violetta Manzanares [id number] Violetta Manzanares 02/17/2025 1 [place] [id number] Violetta Manzanares [id number] Violetta Manzanares Notes Date Note Type Note Provider Name and Address Organization Details Recorded Time 11/21/2024 text/html ROS as noted in the HPI walk inHere yesterday, c/o continued body pain, [facility]. Patient has history of migraines. Was given toradol yesterday which she states did not help. Has taken otc meds at home with no improvement as well. Patient has been taking cefdinir as ordered yesterday. States that she was told yesterday she probably has mono. [facility], [address], [phone], [facility] 11/21/2024 15:55:23 01/29/2025 text/html FatigueReported by PatientHPIFor [...] her bleeding during sex. Stefany Hurtado MD [address] [place] [address], [phone], [facility] 01/29/2025 15:36:02 04/30/2025 text/html The patient is a 35-year-old female presenting with pre-operative evaluation and medication management. Mixed Anxiety and Depressive Disorder: - Reports increased dizziness, notably during visits accompanying her grandmother, and inquired about increasing Lexapro dosage. Lesion of Endometrium: - Scheduled for tubal removal and D&C on 05/15/2025 to manage lesion. PT has an appt in [place] on 05/15/25 for a surgery to remove [...] to get her flu. Stefany Hurtado MD [address] [place] [address], [phone], [facility] 04/30/2025 13:31:22 07/13/2025 text/html Pt states the current medication [...] visit, or can be more gradual and acute care certified nursing assistant. - The burning sensation can last for [...] cyst that appeared to have ruptured. Stefany Hurtado MD [address] [place] [address], [phone], [facility] 07/13/2025 21:39:34 OBGyn Episode No OBEpisode recorded.
--- OUTSIDE RECORDS SUMMARY | 2025-07-18 23:36 | XMS_ITS | Clinical Summary ---
Author Organization [facility] Administrative Offices Address [address] [place] [phone] Care Team Providers Care Printer'S Assistant Name Role Phone Unavailable Primary Care Provider [...] Department Care Team Description 06/02/2025 11:45 AM CYTOLOGY SUPERVISOR Office Visit [facility] Hector Cody [place] [address] [place] [address] Beti Bynum MD Postoperative follow-up (Primary Dx) 05/21/2025 Orders Only [facility] Hector [place] [address] [place] [address] Beti Bynum MD 05/19/2025 External Device Data [...] worry about transportation for future doctor visits, pickler helper medication, etc.? No 2024 Housing Stability Answer [...] Comments Blood Pressure 112/76 06/02/2025 11:22 AM CYTOLOGY SUPERVISOR Pulse - - Temperature - - Respiratory Rate - - Oxygen Saturation - - Inhaled Oxygen Concentration - - Weight 60.3 kg (133 lb) 06/02/2025 11:22 AM CYTOLOGY SUPERVISOR Height 160 cm (5' 3 ) 06/02/2025 11:22 AM CYTOLOGY SUPERVISOR Body Mass Index 23.56 06/02/2025 11:22 AM CYTOLOGY SUPERVISOR Plan of Treatment Upcoming Encounters Date Type Department Care Team (Late st Contact Info) Description 06/07/2026 10:50 AM CYTOLOGY SUPERVISOR Office Visit [facility] Hector Cody [place] [address] [place] [address] Beti Bynum MD [address] [place] [address] Health Maintenance Due Date Last Done Comments HEPATITIS B VACCINES (1 of 3 - 19+ 3-dose series) 03/30 HPV/Cotest (21-29) 2010 CERVICAL CANCER SCREENING 2019 HPV/Cotest (30-65) 2019 PAP SMEAR 2019 INFLUENZA VACCINE (#1) 2025 DTAP/TDAP/TD VACCINES (2 - Td or Tdap) 02/23/2032 HPV VACCINES (No Doses Required) Completed Procedures Procedure Name Priority Date/Time Associated Diagnosis Comments PATHOLOGY REPORT Routine 05/18/2025 8:28 AM CDT from Last 3 Months Results * PATHOLOGY REPORT (05/18/2025 8:28 AM CDT) Beti Bynum MD PATHOLOGY/CYTOLOGY ORDERA PRAFUL Final Result [facility] CLIA# [id number] [address] [place] [phone] from Last [address] [place] [address] [address] MEDICAID
[2025-07-18 23:38] VITALS: BP 126/88; PULSE 120; RESP 18; TEMP 36.7; O2SAT 98; BMI 23.0
--- NOTE | 2025-07-18 23:55 | W.ED.ALLEREA ---
HPI - Allergic Reaction General: Chief complaint: Allergic Reaction Stated complaint: allergic reaction Time Seen by Provider: 07/18/25 23:33 History of Present Illness: HPI narrative: Patient is a 35-year-old female with past medical history of depression, GERD who presents to the ED with possible allergic reaction. Was sitting at home and had the onset of a abrupt rash to her lower extremities and upper chest associated with intense itching, she also had some abdominal pain and 1 episode of diarrhea. She denies any known exposures, no new foods tried, no new detergent or soaps, no new medications. She has not been sick recently, no recent travel. She has no known allergies previously. She endorses some tingling to the tip of her tongue but denies any actual shortness of breath, no throat or lip swelling. Associated symptoms: Deny abdominal pain Related Data Home Medications ?Medication ?Instructions ?Recorded ?Confirmed [id number] 250 2 tab PO Q6H PRN Headache 01/19/25 05/07/25 mg-250 mg-65 mg tablet (Excedrin Migraine) escitalopram oxalate 20 mg tablet 20 mg PO DAILY 05/07/25 05/07/25 (Lexapro) propranolol 40 mg tablet 40 mg PO DAILY 05/07/25 05/07/25 Previous Rx's ?Medication ?Instructions ?Recorded atogepant 60 mg tablet (Qulipta) 60 mg PO DAILY #30 tabs 05/07/25 ondansetron 4 mg disintegrating 4 mg PO TID #20 tabs 06/17/25 tablet oxycodone 5 mg tablet 5 mg PO Q8H PRN pain #10 tabs 06/17/25 tramadol 50 mg tablet 50 mg PO DAILY PRN pain #20 tabs 07/06/25 epinephrine 0.3 mg/0.3 mL 0.3 mg (0.3 mL) IM Q10M PRN 07/19/25 injection, auto-injector (EpiPen anaphylaxis #2 ea 2-Ralph) hydroxyzine HCl 25 mg tablet 25 mg PO QID PRN itching #20 tabs 07/19/25 prednisone 20 mg tablet 20 mg PO DAILY 5 days #5 tabs 07/19/25 Allergies Allergy/AdvReac Type Severity Reaction Status Date / Time No Known Allergies Allergy Verified 05/07/25 11:06 Review of Systems General: Reports: 10 or more systems reviewed and unremarkable except in HPI and below Const: Denies: fever(s) or chills Eyes: Denies: change in vision or eye discharge Card: Denies: chest pain, palpitations or swelling of feet/ankles Resp: Denies: dyspnea or productive cough GI: Denies: abdominal pain or diarrhea Musc: Denies: neck pain or back pain Skin/Breast: Reports: rash and pruritus; Denies: jaundice Neuro: Denies: headache(s), numbness in extremities or weakness in extremities Pro/Lymph: Denies: easy bruising or easy bleeding PFSH ED PFSH: Medical History (Updated 07/19/25 @ 00:44 by Geoffrey Young DO) Anxiety and depression Family History Mother Hyperlipidemia Hypertension Denies family history of Colon cancer Ovarian cancer Diabetes Clotting disorder Heart disease Breast cancer Bleeding disorder Uterine cancer Stroke Social History Smoking and tobacco/nicotine status: former use of tobacco/nicotine Second hand smoke exposure: No Alcohol intake: current Alcohol intake frequency: holidays/special occasions only Substance/Drug Use: never Physical Exam Narrative: EXAM NARRATIVE: Appears mildly anxious, tachycardic but normotensive, afebrile, no acute distress. Has mild hives and lacy erythema to her bilateral anterior shins, upper chest. She is breathing comfortably on room air, no adventitious lung sounds, no signs of oropharyngeal or lip swelling, saturating well on room air. Abdomen soft, nontender nondistended, bowel sounds intact. GCS 15. Sinus tachycardia with no murmurs, no leg swelling, 2+ pulses throughout. Course Vital Signs: Vital signs: Vital Signs Temperature 98.0 F 07/18/25 23:38 Pulse Rate 98 07/19/25 00:06 Respiratory Rate 20 H 07/19/25 00:06 Blood Pressure 143/80 07/19/25 00:06 Pulse Oximetry 97 07/19/25 00:06 Oxygen Delivery Me thod Room Air 07/19/25 00:06 MDM - Allergic Reaction Medical Decision Making -ddx: Localized versus anaphylactic allergic reaction, cellulitis, dermatitis, eczema - Patient with abrupt onset of rash, tongue tingling, did have some mild abdominal pain with diarrhea, not sure if this was actually related but importantly no signs of airway swelling, no stridor, dysphonia, difficulty swallowing secretions, had taken Benadryl at home, will administer IM steroids, give Atarax and Pepcid and reassess continually for need for epinephrine but will hold off at this time. - Patient improved clinically with above medications, her heart rate normalized, she developed absolutely no signs of oral swelling, no signs of respiratory deterioration and still no abdominal pain and so she was deemed stable to be discharged with a course of steroids for if the rash recurs, Atarax as needed and an EpiPen to use in the future and described the indications to use it to which she was agreeable with, patient in stable condition and discharged with at bedside. No radiology studies performed this visit Discharge Plan Discharge Patient Disposition: Home Clinical Impression: Allergic reaction Condition: Stable Prescriptions: New hydroxyzine HCl 25 mg tablet 25 mg PO QID PRN (Reason: itching) Qty: 20 0RF prednisone 20 mg tablet 20 mg PO DAILY 5 Days Qty: 5 0RF epinephrine [EpiPen 2-Ralph] 0.3 mg/0.3 mL auto-injector 0.3 mg IM Q10M PRN (Reason: anaphylaxis) Qty: 2 0RF Rx Instructions: for 2 doses No Action propranolol 40 mg tablet 40 mg PO DAILY escitalopram oxalate [Lexapro] 20 mg tablet 20 mg PO DAILY Qulipta 60 mg tablet 60 mg PO DAILY Qty: 30 4RF tramadol 50 mg tablet 50 mg PO DAILY PRN (Reason: pain) Qty: 20 0RF Rx Instructions: Take once daily as needed for migraines ondansetron 4 mg tablet,disintegrating 4 mg PO TID Qty: 20 0RF oxycodone 5 mg tablet 5 mg PO Q8H PRN (Reason: pain) Qty: 10 0RF Excedrin Migraine 250-250-65 mg Tablet 2 tab PO Q6H PRN (Reason: Headache) Discharge Orders: Discharge ED (Routine); Ordered 07/19/25 Ordered By: Geoffrey Young Referrals: Kelby Lopez MD [Primary Care Provider, [facility]] Discharge Diet: Usual diet Discharge Activity: Resume usual activity Patient Instructions: Food Allergy (ED), Allergies (ED), Blood Transfusion Reactions (ED), Adverse Drug Reaction (ED), Opioid Safety, Pain Management, Patient Portal & Bob Instructions Activity Restrictions/Additional Instructions: You were seen for your allergic reaction, you were evaluated and this was treated as a moderate allergic reaction which seemingly resolved most of your symptoms. If you develop recurrent rash and itching, start taking the steroids, 20 mg once a day for 5 days. You can also use the Atarax instead of Benadryl 25 mg every 6 hours as needed. In the future, if you develop concerns for an allergic reaction and have any difficulty breathing, lip or throat swelling, use the EpiPen as prescribed on the package and then return to the ED for further evaluation. Print Language: Mongolian Coding Level of Care Code ED Manager Speech for Lori Pritchard
[2025-07-19 00:06] VITALS: BP 143/80; PULSE 98; RESP 20; O2SAT 97
[2025-07-19 00:58] VITALS: BP 131/75; PULSE 93; RESP 14; O2SAT 97
== END 2025-07-19 01:02 | disposition home or self-care (01) ==
PROVIDERS: Emergency Provider Student in an Organized Health Care Education/Training Program; PCP Family Medicine
DX: T78.40XA Allergy, unspecified, initial encounter (principal); Z87.891 Personal history of nicotine dependence; X58.XXXA Exposure to other specified factors, initial encounter; Z79.82 Long term (current) use of aspirin
CPT/HCPCS: 96372; 99284; J1100; J9999